=== PATIENT | female | born 1960 | race Two or more races ===

== ENCOUNTER 2016-09-30 12:49 | Inpatient (IN) | payer MEDICARE, OTHER ==
[2016-09-30] MEDS ORDERED: HYDROmorphone 1 MG/ML 1 ML SYRINGE IVP STA ×3 (13:31→17:22)
[2016-09-30] MEDS ORDERED: PANTOPRAZOLE 40 MG/10 ML VIAL IVP STA (13:31)
[2016-09-30] MEDS ORDERED: SODIUM CHLORIDE 0.9% 500 ML IV STA (13:31)
[2016-09-30] MEDS ORDERED: SODIUM CHLORIDE 0.9% 1,000 ML IV STA ×3 (13:31→15:46)
[2016-09-30] MEDS ORDERED: ONDANSETRON 4 MG/2 ML VIAL IVP STA ×2 (13:31→17:22)
--- NOTE | 2016-09-30 13:40 | ED ---
General Adult HPI - General Chief complaint: Nausea/Vomiting/Diarrhea Stated complaint: abdominal pa9in Time Seen by Provider: 09/30/16 13:01 Source: EMS, RN notes reviewed, old records reviewed Mode of arrival: EMS Limitations: no limitations - History of Present Illness Initial comments: This is a 56-year-old female here for evaluation of abdominal pain, nausea vomiting, persistent vomiting or gallop. Patient is poor strain secondary to current condition, patient's by my EMS, history is obtained from family. Patient is avoiding questions, not responding appropriately, states that she does not feel well - Related Data Home Medications Medication Instructions Recorded Confirmed ALPRAZolam [Xanax] 1 mg PO DAILY@1200,1700 05/22/14 10/06/16 Albuterol Inhaler [Ventolin Hfa 2 puff INHALATION DIRECTED PRN 09/30/1610/06 Inhaler] HYDROmorphone HCL [Dilaudid] 4 mg PO DAILY@1200,2100 PRN 09/30/16 10/09/16 Vilazodone Hydrochloride [Viibryd] 20 mg PO DAILY 09/30/16 10/06/16 ALPRAZolam [Xanax] 2 mg PO HS 10/06/16 10/09/16 Albuterol Nebulized [Ventolin 2.5 mg INHALATION DIRECTED PRN 10/06/16 Nebulized] Morphine Sulfate ER [Ms Contin] 30 mg PO BID 10/06/16 10/06/16 PARoxetine [Paxil] 20 mg PO DAILY@1200 10/06/16 10/09/16 Ranitidine HCl [Zantac] 150 mg PO AC-BID 10/06/16 10/06/16 Stool Softner 1 cap PO HS 10/06/16 10/09/16 Allergies Allergy/AdvReac Type Severity Reaction Status Date / Time ampicillin Allergy Unknown Verified 10/09/16 10:41 cephalexin monohydrate Allergy Unknown Verified 10/09/16 10:41 [From Keflex] ciprofloxacin Allergy Nausea & Verified 10/09/16 10:41 Vomiting ibuprofen [From Motrin] Allergy Nausea & Verified 10/09/16 10:41 Vomiting nadolol [From Corgard] Allergy Nausea & Verified 10/09/16 10:41 Vomiting aspirin AdvReac Unknown Swelling Verified 10/09/16 10:41 Review of Systems ROS Statement: Those systems with pertinent positive or pertinent negative responses have been documented in the HPI. ROS Other: All systems not noted in ROS Statement are negative. Past Medical History Past Medical History: Asthma, Cancer, Chest Pain / Angina, COPD, Fibromyalgia, GERD/Reflux, Pneumonia Additional Past Medical History / Comment(s): MURMUR,VULVULAR CA,HIATAL HERNIA, MIGRAINES,COLITIS, History of Any Multi-Drug Resistant Organisms: None Reported Past Surgical History: Appendectomy, Bladder Surgery, Cholecystectomy, Hernia Repair, Hysterectomy Additional Past Surgical History / Comment(s): vulvular cancer HAD 14 SX AT [facility]. Past Anesthesia/Blood Transfusion Reactions: No Reported Reaction Past Psychological History: Anxiety, Depression Smoking Status: Current every day smoker Past Alcohol Use History: None Reported Additional Past Alcohol Use History / Comment(s): STARTED AT AGE 5, SMOKES LESS THAN 1/2 PPD DOWN FROM 2.5 PACKS PER DAY. Past Drug Use History: None Reported - Past Family History Father Family Medical History: Congestive Heart Failure (CHF) Additional Family Medical History / Comment(s): DAD AT AGE 86 FROM CHF Mother Additional Family Medical History / Comment(s): MOM AT AGE 40 FROM CANCER THAT METASTASISED, General Exam Limitations: no limitations General appearance: alert, in no apparent distress, anxious, lethargic, in distress Head exam: Present: atraumatic, normocephalic, normal inspection Eye exam: Present: normal appearance, PERRL, EOMI. Absent: scleral icterus, conjunctival injection, periorbital swelling ENT exam: Present: normal exam, mucous membranes moist Neck exam: Present: normal inspection. Absent: tenderness, meningismus, lymphadenopathy Respiratory exam: Present: normal lung sounds bilaterally. Absent: respiratory distress, wheezes, rales, rhonchi, stridor Cardiovascular Exam: Present: regular rate, normal rhythm, tachycardia, normal heart sounds. Absent: systolic murmur, diastolic murmur, rubs, gallop, clicks GI/Abdominal exam: Present: soft, normal bowel sounds. Absent: distended, tenderness, guarding, rebound, rigid Extremities exam: Present: normal inspection, full ROM, normal capillary refill. Absent: tenderness, pedal edema, joint swelling, calf tenderness Back exam: Present: normal inspection Neurological exam: Present: alert, oriented X3, CN II-XII intact Psychiatric exam: Present: normal affect, normal mood Skin exam: Present: warm, dry, intact, normal color. Absent: rash Course Vital Signs 09/30/16 09/30/16 09/30/16 12:59 13:49 14:50 Temperature 97.0 F L Pulse Rate 72 55 L 58 L Respiratory 14 20 Rate Blood Pressure 102/82 162/80 178/78 O2 Sat by Pulse 95 Oximetry 09/30/16 09/30/16 09/30/16 15:50 17:26 17:36 Temperature Pulse Rate 60 66 Respiratory 16 Rate Blood Pressure 151/75 176/80 O2 Sat by Pulse 98 Oximetry 09/30/16 18:05 Temperature 97.9 F Pulse Rate 65 Respiratory 18 Rate Blood Pressure 172/76 O2 Sat by Pulse 98 Oximetry - Reevaluation(s) Reevaluation #1: 09/30/16 16:12 Patient's difficult IV start, difficult blood draw, multiple attempts by multiple different nurses as well as different medical departments Reevaluation #2: 09/30/16 16:12 Patient is still feeling pain and difficulty strain after initial dose of pain medication EKG Findings - EKG Comments: EKG Findings:: EKG shows sinus bradycardia rate 59, WI 158, QRS 68, QTc 461 Medical Decision Making - Medical Decision Making 56 female admitted to the ER for nausea vomiting and pain. She does have mild improvement but not full relief. Patient be admitted for further evaluation and management - Lab Data Result diagrams: 10/02/16 09:36 09/30/16 16:42 Lab Results 09/30/16 09/30/16 09/30/16 Range/Units 15:57 16:42 16:42 WBC 11.4 H (3.8-10.6) k/uL RBC 4.36 (3.80-5.40) m/uL Hgb 13.8 (11.4-16.0) gm/dL Hct 41.4 (34.0-46.0) % MCV 95.0 (80.0-100.0) fL MCH 31.6 (25.0-35.0) pg MCHC 33.3 (31.0-37.0) g/dL RDW 13.3 (11.5-15.5) % Plt Count 186 (150-450) k/uL Neutrophils % 88 % Lymphocytes % 8 % Monocytes % 3 % Eosinophils % 1 % Basophils % 0 % Neutrophils # 10.0 H (1.3-7.7) k/uL Lymphocytes # 0.9 L (1.0-4.8) k/uL Monocytes # 0.4 (0-1.0) k/uL Eosinophils # 0.1 (0-0.7) k/uL Basophils # 0.0 (0-0.2) k/uL Sodium 147 H (137-145) mmol/L Potassium 4.5 (3.5-5.1) mmol/L Chloride 115 H (98-107) mmol/L Carbon Dioxide 21 L (22-30) mmol/L Anion Gap 11 mmol/L BUN 14 (7-17) mg/dL Creatinine 0.86 (0.52-1.04) mg/dL Est GFR (MDRD) Af Amer >60 (>60 ml/min/1.73 sqM) Est GFR (MDRD) Non-Af >60 (>60 ml/min/1.73 sqM) Glucose 161 H (74-99) mg/dL Calcium 9.1 (8.4-10.2) mg/dL Phosphorus 1.7 L (2.5-4.5) mg/dL Magnesium 1.6 (1.6-2.3) mg/dL Total Bilirubin 0.7 (0.2-1.3) mg/dL AST 28 (14-36) U/L ALT 29 (9-52) U/L Alkaline Phosphatase 83 (38-126) U/L Total Protein 7.2 (6.3-8.2) g/dL Albumin 3.8 (3.5-5.0) g/dL Lipase 145 (23-300) U/L Urine Color Yellow Urine Appearance Cloudy H (Clear) Urine pH 8.5 H (5.0-8.0) Ur Specific [place] 1.016 (1.001-1.035) Urine Protein 2+ H (Negative) Urine Glucose (UA) Negative (Negative) Urine Ketones 2+ H (Negative) Urine Blood Moderate H (Negative) Urine Nitrate Negative (Negative) Urine Bilirubin Negative (Negative) Urine Urobilinogen <2.0 (<2.0) mg/dL Ur Leukocyte Esterase Small H (Negative) Urine RBC 160 H (0-5) /hpf Urine WBC 11 H (0-5) /hpf Ur Squamous Epith Cells 3 (0-4) /hpf Amorphous Sediment Rare H (None) /hpf Urine Bacteria Rare H (None) /hpf Urine Mucus Occasional H (None) /hpf Disposition Clinical Impression: Intractable nausea and vomiting, Chronic pain Disposition: ADMITTED IP TO THIS HOSP Condition: Fair
[2016-09-30] MEDS ORDERED: LORazepam 2 MG/ML SYRINGE IV STA (15:46)
[2016-09-30 16:23] LABS: Amorphous Sediment,Urine Rare /hpf; Appearance,Urine Cloudy (Clear); Bacteria,Urine Rare /hpf; Bilirubin,Urine Negative (Negative); Glucose,Urine (UA) Negative (Negative); Ketones,Urine 2+ (Negative); Leukocyte Esterase,Urine Small (Negative); Mucus,Urine Occasional /hpf; Nitrite,Urine Negative (Negative); PH, Urine 8.5 (5.0-8.0); Particle Count 4965; Protein,Urine 2+ (Negative); RBC,Urine 160 /hpf (0-5); Specific Gravity,Urine 1.016 (1.001-1.035); Squamous Epithelial Cell,Urine 3 /hpf (0-4); UA Billing (MACRO vs. MICRO) MICRO; Urobilinogen,Urine <2.0 mg/dL (<2.0); WBC,Urine 11 /hpf (0-5)
[2016-09-30 16:58] LABS: Basophils % (A) 0 %; CH 31.1; CHCM 32.9; Eosinophils # (A) 0.1 k/uL (0-0.7); Eosinophils % (A) 1 %; HCT 41.4 % (34.0-46.0); HDW 2.14; HGB 13.8 gm/dL (11.4-16.0); Luc # (Auto) 0.07; Luc % (Auto) 1; Lymphocytes # (A) 0.9 k/uL (1.0-4.8); Lymphocytes % (A) 8 %; MCH 31.6 pg (25.0-35.0); MCHC 33.3 g/dL (31.0-37.0); Mean Platelet Volume 9.4; Monocytes # (A) 0.4 k/uL (0-1.0); Monocytes % (A) 3 %; Neutrophils % (A) 88 %; RBC 4.36 m/uL (3.80-5.40); RDW 13.3 % (11.5-15.5); WBC 11.4 k/uL (3.8-10.6); WBC (Perox) 11.63
[2016-09-30 17:22] LABS: ALT 29 U/L (9-52); AST 28 U/L (14-36); Alkaline Phosphatase 83 U/L (38-126); Anion Gap 11 mmol/L; Blood Urea Nitrogen 14 mg/dL (7-17); Calcium 9.1 mg/dL (8.4-10.2); Carbon Dioxide 21 mmol/L (22-30); Chloride 115 mmol/L (98-107); Glucose 161 mg/dL (74-99); Magnesium 1.6 mg/dL (1.6-2.3); Non-African American GFR(MDRD) >60 (>60 ml/min/1.73 sqM); Phosphorous 1.7 mg/dL (2.5-4.5); Sodium 147 mmol/L (137-145); Total Bilirubin 0.7 mg/dL (0.2-1.3); Total Protein 7.2 g/dL (6.3-8.2)
[2016-09-30] MEDS ORDERED: SODIUM CHLORIDE 0.9% 1,000 ML IV ONE (17:22)
[2016-09-30 17:37] LABS: Potassium 4.5 mmol/L (3.5-5.1)
[2016-09-30 19:03] VITALS: BMI 22.6
[2016-09-30] MEDS: HYDROmorphone 1 MG/ML 1 ML SYRINGE IVP PRN (21:43)
[2016-09-30] MEDS: ONDANSETRON 4 MG/2 ML VIAL IVP PRN (21:45)
[2016-10-01] MEDS: HYDROmorphone 1 MG/ML 1 ML SYRINGE IVP PRN ×7 (00:54→22:21)
[2016-10-01] MEDS: ONDANSETRON 4 MG/2 ML VIAL IVP PRN (05:02)
[2016-10-01] MEDS: ENOXAPARIN 40 MG/0.4 ML SYRINGE SQ SCH (07:33)
[2016-10-01] MEDS: PANTOPRAZOLE 40 MG/10 ML VIAL IVP SCH (07:33)
[2016-10-01] MEDS ORDERED: ALBUTEROL NEBULIZED 2.5 MG/3 ML INHALATION PRN (11:34)
[2016-10-01] MEDS ORDERED: ONDANSETRON 4 MG/2 ML VIAL IVP PRN (11:43)
[2016-10-01] MEDS: SODIUM CHLORIDE 0.9% 1,000 ML IV SCH (12:52)
[2016-10-01] MEDS ORDERED: ALPRAZolam 0.5 MG TAB PO STA (13:25)
[2016-10-01] MEDS: NITROFURANTOIN MONOHYD/M-CRYST 100 MG CAP PO SCH ×2 (13:47→22:22)
[2016-10-01] MEDS: VILAZODONE HYDROCHLORIDE 20 MG PO SCH (16:12)
[2016-10-01] MEDS: ALPRAZolam 0.5 MG TAB PO SCH ×2 (18:27→22:21)
[2016-10-01] MEDS: PARoxetine 20 MG TAB PO SCH (22:22)
[2016-10-02] MEDS: HYDROmorphone 1 MG/ML 1 ML SYRINGE IVP PRN ×7 (02:25→21:55)
--- NOTE | 2016-10-02 08:29 | P.HPIM ---
History of Present Illness H&P Date: 10/02/16 Chief Complaint: Right lower quadrant abdominal pain This is a 56-year-old white female essentially admitted for right lower quadrant abdominal pain. She has an underlying history of supposedly follow her cancer. She hasn't on underlying element of taking Dilaudid with morphine sulfate. She states significant right lower quadrant pain. Some nausea is noted. Minimal toleration of diet as stated. She was supposed somewhat disoriented on admission. I question element of withdrawal from chronic opiates. However, she seems to have legitimate reason to take Dilaudid with morphine if she has underlying history of vulvar cancer. She states she usually goes to [facility] 6 months. Review of Systems Constitutional: Reports chronic pain, Reports weakness Eyes: denies blurred vision, denies pain Ears, nose, mouth and throat: Denies headache, Denies sore throat Cardiovascular: Denies chest pain, Denies shortness of breath Gastrointestinal: Reports as per HPI, Reports abdominal pain Genitourinary: Denies dysuria, Denies hematuria Past Medical History Past Medical History: Asthma, Cancer, Chest Pain / Angina, COPD, Fibromyalgia, GERD/Reflux, Pneumonia Additional Past Medical History / Comment(s): MURMUR,VULVULAR CA,HIATAL HERNIA, MIGRAINES,COLITIS, History of Any Multi-Drug Resistant Organisms: None Reported Past Surgical History: Appendectomy, Bladder Surgery, Cholecystectomy, Hernia Repair, Hysterectomy Additional Past Surgical History / Comment(s): vulvular cancer HAD 14 SX AT [facility]. Past Anesthesia/Blood Transfusion Reactions: No Reported Reaction Past Psychological History: Anxiety, Depression Smoking Status: Current every day smoker Past Alcohol Use History: None Reported Additional Past Alcohol Use History / Comment(s): STARTED AT AGE 5, SMOKES LESS THAN 1/2 PPD DOWN FROM 2.5 PACKS PER DAY. Past Drug Use History: None Reported - Past Family History Father Family Medical History: Congestive Heart Failure (CHF) Additional Family Medical History / Comment(s): DAD AT AGE 86 FROM CHF Mother Additional Family Medical History / Comment(s): MOM AT AGE 40 FROM CANCER THAT METASTASISED, Medications and Allergies Home Medications Medication Instructions Recorded Confirmed Type ALPRAZolam [Xanax] 2 mg PO TID 05/22/14 09/30/16 History Albuterol Inhaler [Ventolin Hfa 2 puff INHALATION RT-Q6H PRN 09/30/16 09/30/16 History Inhaler] HYDROmorphone HCL [Dilaudid] 4 mg PO Q6H PRN 09/30/16 09/30/16 History Vilazodone Hydrochloride [Viibryd] 20 mg PO DAILY 09/30/16 09/30/16 History PARoxetine [Paxil] 1 BID 10/01/16 History Allergies Allergy/AdvReac Type Severity Reaction Status Date / Time ampicillin Allergy Unknown Verified 09/30/16 13:16 cephalexin monohydrate Allergy Unknown Verified 09/30/16 13:16 [From Keflex] ciprofloxacin Allergy Nausea & Verified 09/30/16 13:16 Vomiting ibuprofen [From Motrin] Allergy Nausea & Verified 09/30/16 13:16 Vomiting nadolol [From Corgard] Allergy Nausea & Verified 09/30/16 13:16 Vomiting Physical Exam Vitals: Vital Signs Temp Pulse Resp BP Pulse Ox 10/02/16 07:00 98.1 F 51 L 16 131/63 95 10/01/16 22:30 16 10/01/16 20:10 98.6 F 50 L 16 94/55 92 L 10/01/16 16:00 59 L 16 10/01/16 15:00 97.9 F 59 L 16 100/53 95 Intake and Output 10/01/16 10/02/16 10/02/16 22:59 06:59 14:59 Intake Total 60 300 Balance 60 300 Intake: Intake, IV Titration 180 Amount Sodium Chloride 0.9% 1, 180 000 ml @ 50 mls/hr IV . Q20H KHADRA Rx#:[id number] Oral 60 120 Other: # Voids 1 2 - Constitutional General appearance: thin - EENT Eyes: EOMI - Neck Neck: no lymphadenopathy - Respiratory Respiratory: bilateral: CTA - Cardiovascular Rhythm: regular Heart sounds: normal: S1, S2 - Gastrointestinal General gastrointestinal: soft, tenderness - Integumentary Integumentary: no cellulitis - Neurologic Neurologic: CNII-XII intact Results CBC & Chem 7: 09/30/16 16:42 09/30/16 16:42 Thrombosis Risk Factor Assmnt - Choose All That Apply Each Factor Represents 1 point: Age 41-60 years Thrombosis Risk Factor Assessment Total Risk Factor Score: 1 Thrombosis Risk Factor Assessment Level: Low Risk Assessment and Plan (1) Chronic pain Status: Acute (2) Intractable nausea and vomiting Status: Acute Plan: We'll go ahead and order computed tomography scan of abdomen and pelvis without contrast. Continue Dilaudid for chronic pain control. Check CBC and CMP in a.m. Question need to consult general surgery if no better. Reconcile medications as necessary. Time with Patient: Greater than 30
[2016-10-02] MEDS: ENOXAPARIN 40 MG/0.4 ML SYRINGE SQ SCH (08:35)
[2016-10-02] MEDS: ALPRAZolam 0.5 MG TAB PO SCH ×3 (08:35→21:00)
[2016-10-02] MEDS: PANTOPRAZOLE 40 MG/10 ML VIAL IVP SCH (08:36)
[2016-10-02] MEDS: NITROFURANTOIN MONOHYD/M-CRYST 100 MG CAP PO SCH ×2 (08:36→21:01)
[2016-10-02] MEDS: PARoxetine 20 MG TAB PO SCH ×2 (08:36→21:01)
[2016-10-02] MEDS: VILAZODONE HYDROCHLORIDE 20 MG PO SCH (08:36)
--- NOTE | 2016-10-02 09:20 | CT ---
EXAMINATION TYPE: CT abdomen pelvis wo con DATE OF EXAM: 10/02/2016 9:04 AM HISTORY: RLQ abdominal pain CT DLP: 688 mGycm. Automated Exposure Control for Dose Reduction was Utilized. TECHNIQUE: CT scan of the abdomen and pelvis is performed without oral or IV contrast. COMPARISON: CT abdomen pelvis December 14, 2015 FINDINGS: Within the limitations of a non-contrast study, the following observations are made. LUNG BASES: Some dependent atelectatic change is present. There is additional linear atelectasis and/ or scarring in the left lung base. LIVER/GB: There is stable 2 cm low dense lesion in the left hepatic lobe abutting the interhemispheri c fissure on axial image 26 corresponds to heterogeneous enhancing lesion with increasing central james ling or hemangioma on prior postcontrast images. Second smaller hemangioma posterior right hepatic lo be is likely present near axial image 27 stable in size. Cholecystectomy clips are noted. PANCREAS: No significant abnormality is seen. SPLEEN: Thin curvilinear calcification along lateral margin of spleen is redemonstrated presumed alisa gn, could be posttraumatic in etiology. ADRENALS: No significant abnormality is seen. KIDNEYS: No left-sided renal calculi or hydronephrosis is evident. Previously visualized large 13 mm calculus lower pole level right kidney has passed into the collecting system or pelvis. There is some ill-defined fluid surrounding right renal pelvis. There is second smaller nonobstructing 3 mm calcul us in lower pole calyx on axial image 29. There is mild to moderate proximal hydroureter which gradua lly transitions into nondilated ureter. No obstructing calculus is seen. No intraluminal calculus in the bladder is present. BOWEL: Evaluation of bowel is suboptimal due to lack of enteric contrast. There is no suspicious smal l or large bowel dilatation. Sigmoid colonic diverticula are present. There is some additional scatte red colonic diverticula. No acute diverticulitis is seen. Appendix is not well seen with certainty bu t there is no convincing evidence of inflammatory change at base of cecum to suggest acute appendicit is. Appendix is not well seen on prior exam and may be surgically absent. GENITAL ORGANS: Uterus is surgically absent or markedly atrophic in appearance. LYMPH NODES: No greater than 1cm abdominal or pelvic lymph nodes are appreciated. OSSEOUS STRUCTURES: No significant abnormality is seen. OTHER: There is mild to moderate calcified atherotic change of aorta and branch vessels. IMPRESSION: 1. Interval passage of large calculus right kidney into the renal pelvis. There is new moderate surro unding ill-defined fluid and fat stranding with new mild to moderate proximal hydroureter. This is no nspecific finding, inflammatory change or infectious process at this level these to be considered. Ad vise urology consultation if has not been performed.
[2016-10-02 10:08] LABS: Basophils % (A) 0 %; CHCM 32.2; Eosinophils # (A) 0.1 k/uL (0-0.7); Eosinophils % (A) 1 %; HCT 38.1 % (34.0-46.0); HDW 2.09; HGB 12.4 gm/dL (11.4-16.0); Luc # (Auto) 0.14; Luc % (Auto) 2; Lymphocytes # (A) 2.7 k/uL (1.0-4.8); Lymphocytes % (A) 47 %; MCH 31.5 pg (25.0-35.0); MCHC 32.5 g/dL (31.0-37.0); MCV 96.8 fL (80.0-100.0); Mean Platelet Volume 8.5; Monocytes # (A) 0.3 k/uL (0-1.0); Monocytes % (A) 6 %; Neutrophils # (A) 2.5 k/uL (1.3-7.7); Neutrophils % (A) 44 %; RBC 3.94 m/uL (3.80-5.40); RDW 13.4 % (11.5-15.5); WBC 5.7 k/uL (3.8-10.6); WBC (Perox) 6.06
[2016-10-02] MEDS: SODIUM CHLORIDE 0.9% 1,000 ML IV SCH (10:32)
[2016-10-02] MEDS: HYDROmorphone 2 MG TAB PO PRN (16:46)
--- NOTE | 2016-10-02 18:08 | HP ---
DATE OF ADMISSION: This is a pleasant 56-year-old white female with multiple allergies who was admitted to the hospital with acute abdominal pain, nausea, vomiting, persistent vomiting for approximately 4 to 5 hours in the emergency department. She denies any chest pain. She denies any active bleeding including gastrointestinal or rectal or urinary. CURRENT MEDICATIONS: Include Xanax, Ventolin, Dilaudid p.o. and Vybrid. ALLERGIES: Ampicillin, Keflex, Cipro, ibuprofen and Corgard. REVIEW OF SYSTEMS: The patient is a poor historian and she is currently not talking very much secondary to pain. PAST MEDICAL HISTORY: Significant for vulvar cancer, chest pain, angina, COPD, fibromyalgia, chronic pain syndrome, chronic pain medications, GERD, migraines, colitis. PAST SURGICAL HISTORY: Bladder, cholecystectomy, hernia repair, hysterectomy, appendectomy, vulvar cancer at [facility]. SOCIAL: Positive tobacco every day. FAMILY HISTORY: Dad had congestive heart failure, at 86. Mom from cancer at age 40. PHYSICAL EXAMINATION: GENERAL: The patient is alert. She is thrashing. She answered questions. She is not coherent at times. HEENT: Head is normocephalic and atraumatic. Sclerae is anicteric. NECK: Supple. No JVD. HEART: Regular rate and rhythm. LUNGS: Clear to auscultation. ABDOMEN: Soft, but diffuse tenderness with negative rebound, rigidity, guarding. EXTREMITIES: No cyanosis, clubbing or jaundice. SKIN: Skin is warm and dry to palpation. NEUROLOGIC: Cranial nerves II through XII are grossly intact. She is currently afebrile with a temperature 97.0. IMPRESSION: 1. Intractable nausea and vomiting. 2. Urinary tract infection. 3. Chronic pain and chronic pain management. 4. Fibromyalgia. PLAN: Admit patient, full hydration, continue to monitor labs, advance diet as she is currently n.p.o., add antibiotics for uncomplicated urinary tract infection.
[2016-10-03] MEDS: HYDROmorphone 1 MG/ML 1 ML SYRINGE IVP PRN ×4 (00:58→22:32)
[2016-10-03] MEDS: HYDROmorphone 2 MG TAB PO PRN ×2 (03:10→12:29)
[2016-10-03] MEDS: SODIUM CHLORIDE 0.9% 1,000 ML IV SCH (06:28)
--- NOTE | 2016-10-03 08:27 | P.PN ---
Subjective Principal diagnosis: Right lower quadrant abdominal pain. This is a continue progress on a 56-year-old white female essentially admitted for abdominal pain. The patient had computed tomography scan done yesterday which showed interval large passage of renal calculus. However, there is fluid collection in the ureter area on that side. It is recommended from computed tomography scan that we obtain urology consultation. However, clinically she is significantly improved. She seems to be tolerating diet. We will go ahead and advance as necessary. She is currently on Macrobid. CBC is nominal. Objective - Vital Signs Vital signs: Vital Signs Temp 98.4 F 10/03/16 07:00 Pulse 50 L 10/03/16 07:00 Resp 16 10/03/16 07:00 BP 130/64 10/03/16 07:00 Pulse Ox 96 10/03/16 07:00 Intake & Output 10/02/16 10/03/16 10/03/16 18:59 06:59 18:59 Intake Total 940 Balance 940 Intake: Intake, IV Titration 400 Amount Sodium Chloride 0.9% 1, 400 000 ml @ 50 mls/hr IV . Q20H KHADRA Rx#:[id number] Oral 540 Other: # Voids 3 1 - Constitutional General appearance: Present: thin - EENT Eyes: Absent: abnormal pupil - Respiratory Respiratory: bilateral: CTA - Cardiovascular Rhythm: regular Heart sounds: normal: S1, S2 - Gastrointestinal General gastrointestinal: Present: soft. Absent: tenderness - Integumentary Integumentary: Absent: cellulitis - Psychiatric Psychiatric: Present: A&O x's 3 - Labs CBC & Chem 7: 10/02/16 09:36 09/30/16 16:42 Assessment and Plan (1) Chronic pain Status: Acute (2) Intractable nausea and vomiting Status: Acute Plan: Right lower quadrant abdominal pain with urologic finding on computed tomography scan. We'll go ahead and ask Dr. Raman to see the patient. Otherwise, significant improvement clinically and her appearance today compared to admission. She is more alert and not complaining of any significant nausea as she was on admission. Hopeful discharge in next 24-48 hours. Restart home morphine dosing.
[2016-10-03] MEDS: ENOXAPARIN 40 MG/0.4 ML SYRINGE SQ SCH (09:27)
[2016-10-03] MEDS: MORPHINE SULFATE ER 30 MG TABLET PO SCH ×2 (09:27→20:39)
[2016-10-03] MEDS: PANTOPRAZOLE 40 MG/10 ML VIAL IVP SCH (09:27)
[2016-10-03] MEDS: VILAZODONE HYDROCHLORIDE 20 MG PO SCH (09:27)
[2016-10-03] MEDS: PARoxetine 20 MG TAB PO SCH ×2 (09:28→20:40)
[2016-10-03] MEDS: NITROFURANTOIN MONOHYD/M-CRYST 100 MG CAP PO SCH ×2 (09:28→20:40)
[2016-10-03] MEDS: ALPRAZolam 0.5 MG TAB PO SCH ×3 (10:22→20:39)
--- NOTE | 2016-10-03 16:34 | P.GSCN ---
History of Present Illness Consult date: 10/03/16 History of present illness: 56 yo female admitted with acute pain, nausea and vomiting.SHe has chronic pain. SHe has a history of stones. SHe has been seen by Dr Perry in the past. SHe had eswl in 2009. SHe had a ct scan that shows a 13 mm upj stone on the right. It was previously noted in the right lower pole. HEr urine is not infected. There is mild hydro secondary to the stone. She has had pain for the last couple of months. Review of Systems - Constitutional Reports chronic pain - Genitourinary Genitourinary Comment(s): the patient has vulvar cancer and has had treatment for that. Genitourinary: Reports as per HPI Past Medical History Past Medical History: Asthma, Cancer, Chest Pain / Angina, COPD, Fibromyalgia, GERD/Reflux, Pneumonia Additional Past Medical History / Comment(s): MURMUR,VULVULAR CA,HIATAL HERNIA, MIGRAINES,COLITIS, History of Any Multi-Drug Resistant Organisms: None Reported Past Surgical History: Appendectomy, Bladder Surgery, Cholecystectomy, Hernia Repair, Hysterectomy Additional Past Surgical History / Comment(s): vulvular cancer HAD 14 SX AT [facility]. Past Anesthesia/Blood Transfusion Reactions: No Reported Reaction Past Psychological History: Anxiety, Depression Smoking Status: Current every day smoker Past Alcohol Use History: None Reported Additional Past Alcohol Use History / Comment(s): STARTED AT AGE 5, SMOKES LESS THAN 1/2 PPD DOWN FROM 2.5 PACKS PER DAY. Past Drug Use History: None Reported - Past Family History Father Family Medical History: Congestive Heart Failure (CHF) Additional Family Medical History / Comment(s): DAD AT AGE 86 FROM CHF Mother Additional Family Medical History / Comment(s): MOM AT AGE 40 FROM CANCER THAT METASTASISED, Medications and Allergies Home Medications Medication Instructions Recorded Confirmed Type ALPRAZolam [Xanax] 2 mg PO TID 05/22/14 09/30/16 History Albuterol Inhaler [Ventolin Hfa 2 puff INHALATION RT-Q6H PRN 09/30/16 09/30/16 History Inhaler] HYDROmorphone HCL [Dilaudid] 4 mg PO Q6H PRN 09/30/16 09/30/16 History Vilazodone Hydrochloride [Viibryd] 20 mg PO DAILY 09/30/16 09/30/16 History PARoxetine [Paxil] 1 BID 10/01/16 History Allergies Allergy/AdvReac Type Severity Reaction Status Date / Time ampicillin Allergy Unknown Verified 09/30/16 13:16 cephalexin monohydrate Allergy Unknown Verified 09/30/16 13:16 [From Keflex] ciprofloxacin Allergy Nausea & Verified 09/30/16 13:16 Vomiting ibuprofen [From Motrin] Allergy Nausea & Verified 09/30/16 13:16 Vomiting nadolol [From Corgard] Allergy Nausea & Verified 09/30/16 13:16 Vomiting Surgical - Exam Vital Signs Temp Pulse Resp BP Pulse Ox 97.0 F L 72 14 102/82 95 09/30/16 12:59 09/30/16 12:59 09/30/16 12:59 09/30/16 12:59 09/30/16 12:59 - General well developed, moderate pain - ENT no hearing loss - Neck trachea midline - Respiratory normal expansion, normal respiratory effort - Cardiovascular Rhythm: regular - Abdomen Abdomen: soft, non tender - Neurologic normal coordination, normal sensation - Musculoskeletal normal posture - Psychiatric oriented to time, oriented to person, oriented to place Results - Labs 10/02/16 09:36 09/30/16 16:42 Assessment and Plan Plan: Impression / Plan : Right upj stone, 13mm The chance of spontaneous passage is small. She would probably best treated with ESWL right This can be set up for 10/09/2016I discussed other surgical options with the patient and her son and we have decided to proceed with shockwave lithotripsy. This will be set up. The patient can be discharged home on oral pain medication.
[2016-10-03 22:34] VITALS: PULSE 51; RESP 18
[2016-10-04] MEDS: HYDROmorphone 1 MG/ML 1 ML SYRINGE IVP PRN (01:48)
[2016-10-04] MEDS: SODIUM CHLORIDE 0.9% 1,000 ML IV SCH (05:13)
[2016-10-04] MEDS: HYDROmorphone 2 MG TAB PO PRN (05:14)
[2016-10-04] MEDS ORDERED: PANTOPRAZOLE 40 MG TABLET PO SCH (07:30)
[2016-10-04 07:38] VITALS: BP 136/61; TEMP 98.6
--- NOTE | 2016-10-04 07:56 | P.DS ---
Providers Date of admission: 09/30/16 17:22 Attending physician: Matti Montejo Consults: 10/03/16 08:03 Consult Physician Routine Consulting Provider: Bebeto Raman Consult Reason/Comments: ureter inflammation Do you want consulting provider notified?: Yes Primary care physician: Matti Montejo - Discharge Diagnosis(es) (1) Chronic pain Current Visit: Yes Status: Acute (2) Intractable nausea and vomiting Current Visit: Yes Status: Acute Hospital Course: The patient is a 56-year-old white female essentially for dehydration. The patient had significant abdominal pain and disorientation. After rehydration she complained of right quadrant abdominal pain. The patient ended up having computed tomography scan which showed significant stone. Neurology is consulted and she'll have shockwave lithotripsy done this Sunday the patient is not tolerating diet without difficulty and to follow-up with me in approximately one week. Patient Condition at Discharge: Fair Plan - Discharge Summary Discharge Medication List ALPRAZolam [Xanax] 2 mg PO TID 05/22/14 [History] Albuterol Inhaler [Ventolin Hfa Inhaler] 2 puff INHALATION RT-Q6H PRN 09/30/16 [ History] HYDROmorphone HCL [Dilaudid] 4 mg PO Q6H PRN 09/30/16 [History] Vilazodone Hydrochloride [Viibryd] 20 mg PO DAILY 09/30/16 [History] PARoxetine [Paxil] 1 BID 10/01/16 [History] Morphine Sulfate ER [Ms Contin] 30 mg PO Q12HR tablet 10/04/16 [Rx] Nitrofurantoin Monohyd/M-Cryst [Macrobid] 100 mg PO BID cap 10/04/16 [Rx] PARoxetine [Paxil] 20 mg PO BID tab 10/04/16 [Rx] Follow up Appointment(s)/Referral(s): Matti Montejo MD [Primary Care Provider] - 1 Week Discharge Disposition: HOME SELF-CARE
[2016-10-04] MEDS: ENOXAPARIN 40 MG/0.4 ML SYRINGE SQ SCH (08:07)
[2016-10-04] MEDS: ALPRAZolam 0.5 MG TAB PO SCH (08:07)
[2016-10-04] MEDS: MORPHINE SULFATE ER 30 MG TABLET PO SCH (08:08)
[2016-10-04] MEDS: PARoxetine 20 MG TAB PO SCH (08:09)
[2016-10-04] MEDS: VILAZODONE HYDROCHLORIDE 20 MG PO SCH (08:09)
[2016-10-04] MEDS: NITROFURANTOIN MONOHYD/M-CRYST 100 MG CAP PO SCH (08:09)
--- NOTE | 2016-10-04 11:24 | P.PN ---
Subjective The patient was seen in consultation yesterday for a 13 mm right renal pelvic stone. Her pain is under control. She'll be set up for excision corporeal shockwave lithotripsy, October 09Sunday here at [facility] - Vital Signs Vital signs: Vital Signs Temp 98.6 F 10/04/16 07:00 Pulse 51 L 10/04/16 07:00 Resp 18 10/04/16 08:00 BP 136/61 10/04/16 07:00 Pulse Ox 93 L 10/04/16 07:00 Intake & Output 10/03/16 10/04/16 10/04/16 18:59 06:59 18:59 Intake Total 350 600 Balance 350 600 Intake: Intake, IV Titration 350 400 Amount Sodium Chloride 0.9% 1, 350 400 000 ml @ 50 mls/hr IV . Q20H [facility] Rx#:[id number] Oral 200 Other: Voiding Method Toilet # Voids 2 1 - Labs CBC & Chem 7: 10/02/16 09:36 09/30/16 16:42
== END 2016-10-04 12:16 | disposition home or self-care (01) | DRG 694 ==
LOC: EC 12:49 → 5MS5E 17:22
PROVIDERS: ADMIT Family Medicine; ATTEND Family Medicine
DX: N20.0 Calculus of kidney (principal); N39.0 Urinary tract infection, site not specified; E86.0 Dehydration; F32.9 Major depressive disorder, single episode, unspecified; F17.200 Nicotine dependence, unspecified, uncomplicated; F41.9 Anxiety disorder, unspecified; G89.4 Chronic pain syndrome; J44.9 Chronic obstructive pulmonary disease, unspecified; J45.909 Unspecified asthma, uncomplicated; K21.9 Gastro-esophageal reflux disease without esophagitis; M79.7 Fibromyalgia; G43.909 Migraine, unspecified, not intractable, without status migrainosus; K44.9 Diaphragmatic hernia without obstruction or gangrene; R01.1 Cardiac murmur, unspecified; R19.7 Diarrhea, unspecified; Z85.44 Personal history of malignant neoplasm of other female genital organs; Z79.899 Other long term (current) drug therapy; Z88.1 Allergy status to other antibiotic agents; Z88.0 Allergy status to penicillin; Z82.49 Family history of ischemic heart disease and other diseases of the circulatory system
CPT/HCPCS: 36415; 74176; 80053; 81001; 83690; 83735; 84100; 85025; 87086; 93005; 94760; 96361; 96374; 96375; 96376; 99285

== ENCOUNTER 2016-10-09 10:19 | Day surgery (SDC) | payer MEDICARE, OTHER ==
[2016-10-06 12:05] VITALS: BMI 22.6
[~2016-10-09 10:19] MED LIST: HYDROmorphone 1 MG/ML 1 ML SYRINGE IVP PRN; LACTATED RINGERS 1,000 ML IV SCH; LIDOCAINE 1% 20 ML VIAL (10MG/ML) FOR IV START INTRADERMA PRN
--- NOTE | 2016-10-09 10:20 | XR ---
EXAMINATION TYPE: XR KUB DATE OF EXAM: 10/09/2016 10:13 AM COMPARISON: 12/10/2009 INDICATION: Renal stones TECHNIQUE: Single view abdomen supine view FINDINGS: There is a normal bowel gas pattern. Psoas margins are normal. No organomegaly is present. There is a 1.2 cm calcification within the right renal pelvis region. Cholecystectomy clips are adjac ent. Calcifications better visualized than the comparison. IMPRESSION: 1. 1.2 cm right renal pelvis stone
[2016-10-09 10:42] VITALS: TEMP 98.1
[2016-10-09] MEDS ORDERED: LIDOCAINE 1% 20 ML VIAL (10MG/ML) FOR IV START INTRADERMA ONE (11:00)
[2016-10-09] MEDS ORDERED: fentaNYL (PF) 50 MCG/ML 2 ML AMP ONE (11:05)
[2016-10-09] MEDS ORDERED: FUROSEMIDE 10 MG/ML 2 ML VIAL ONE (11:05)
[2016-10-09] MEDS ORDERED: MIDAZOLAM 2 MG/2 ML VIAL ONE (11:05)
[2016-10-09] MEDS ORDERED: PROPOFOL 10 MG/ML 20 ML VIAL IV ONE (11:05)
[2016-10-09] MEDS ORDERED: LIDOCAINE 1% INJ 10MG/ML (20 ML MDV) ONE (11:05)
--- NOTE | 2016-10-09 11:45 | P.OP ---
Date of Procedure: 10/09/16 Preoperative Diagnosis: Right Renal Calculus Postoperative Diagnosis: Same Procedure(s) Performed: Right extracorporal shockwave lithotripsy (ESWL) Anesthesia: MAC Surgeon: Nigel Perry Estimated Blood Loss (ml): 0 IV fluids (ml): 400 Pathology: none sent Condition: stable Disposition: PACU Indications for Procedure: The patient is a 56 year old woman with a history of urolithiasis. She has been found to have a 13 mm right UPJ calculus and comes for ESWL. Operative Findings: The calculus fragments well. Description of Procedure: The patient was taken to the operating room and placed on the Dornier Compact Delta II lithotripter in the supine position. The calculus was seen on biplanar fluoroscopy. Lasix 10 mg was given intravenously. Once the patient was properly positioned and sedated, lithotripsy was performed. The energy level was gradually increased per protocol, to an energy level of 4. After 200 shocks were administered, a 2 minute pause was instituted per protocol. A total of 2500 shocks were given at a rate of 80 shocks per minute. Fluoroscopy was utilized at a minimum to ensure proper positioning and determine the treatment status. The calculus changed in appearance, consistent with fragmentation. The patient tolerated the procedure well was taken to the recovery room in stable condition. Instructions were given to strain the urine , and the patient will follow-up within one week.
[2016-10-09] MEDS ORDERED: MORPHINE SULFATE 4 MG/ML SYRINGE IVP ONE (12:31)
[2016-10-09 13:33] VITALS: RESP 16
[2016-10-09 14:12] VITALS: BP 113/66; PULSE 50
== END 2016-10-09 14:38 | disposition home or self-care (01) ==
LOC: ORWHC2ENDO 10:19
PROVIDERS: ATTEND Urology
DX: N20.0 Calculus of kidney (principal); G89.29 Other chronic pain; J45.909 Unspecified asthma, uncomplicated; J44.9 Chronic obstructive pulmonary disease, unspecified; M79.7 Fibromyalgia; K21.9 Gastro-esophageal reflux disease without esophagitis; F41.9 Anxiety disorder, unspecified; F32.9 Major depressive disorder, single episode, unspecified; F17.200 Nicotine dependence, unspecified, uncomplicated; Z79.891 Long term (current) use of opiate analgesic; Z79.899 Other long term (current) drug therapy; Z88.1 Allergy status to other antibiotic agents; Z88.8 Allergy status to other drugs, medicaments and biological substances
CPT/HCPCS: 74000; 50590; J2250; J2270; J1940; J2001; J3010; J2704; 99153

== ENCOUNTER → 2016-10-25 | Outpatient (CLI) | payer MEDICARE, OTHER ==
--- NOTE | 2016-10-25 14:29 | XR ---
EXAMINATION TYPE: XR KUB DATE OF EXAM ORDERED: 10/25/2016 2:12 PM HISTORY: Post lithotripsy. COMPARISON: Previous study dated 10/09/2016. FINDINGS: There has been a previous cholecystectomy. A 1.2 cm calculus overlying the right renal pelvis is no longer visualized. There is very questionabl e 3 mm calcification overlying the lower pole of the right kidney. There are stable phleboliths and o ther vascular calcifications within the pelvis. IMPRESSION: STATUS POST LITHOTRIPSY. THERE MAY BE A SMALL, RESIDUAL 3.3 MILLIMETER CALCIFICATION IN THE LOWER PEARL E OF THE RIGHT KIDNEY.
== END | disposition home or self-care (01) ==
LOC: RADXRMAIN 13:43
PROVIDERS: ATTEND Urology
DX: N28.89 Other specified disorders of kidney and ureter (principal)
CPT/HCPCS: 74000

== ENCOUNTER → 2017-05-31 | Outpatient (CLI) | payer MEDICARE, OTHER ==
--- NOTE | 2017-05-31 15:11 | XR ---
EXAMINATION TYPE: XR chest 2V DATE OF EXAM: 05/31/2017 COMPARISON: NONE HISTORY: Shortness of breath TECHNIQUE: Frontal and lateral views of the chest are obtained. FINDINGS: Scattered senescent parenchymal changes noted. Hyperinflation compatible with COPD. No evidence for infiltrate. No evidence for atelectasis. Heart size is stable. Mediastinal structures are stable and grossly unremarkable. No evidence for hilar prominence. Degenerative changes dorsal spine. IMPRESSION: 1. No evidence for acute pulmonary disease.
== END | disposition home or self-care (01) ==
LOC: RADXRMAIN 12:59
PROVIDERS: ATTEND Family Medicine
DX: J18.9 Pneumonia, unspecified organism (principal)
CPT/HCPCS: 71020

== ENCOUNTER 2017-06-16 14:02 | Emergency (ER) | payer MEDICARE, OTHER ==
[2017-06-16 14:16] VITALS: BP 115/67; PULSE 84; RESP 18; TEMP 98.2
--- NOTE | 2017-06-16 14:27 | ED ---
General Adult HPI - General Chief complaint: Extremity Injury, Lower Stated complaint: Ankle Pain Time Seen by Provider: 06/16/17 14:19 Source: patient, RN notes reviewed Mode of arrival: wheelchair Limitations: no limitations - History of Present Illness Initial comments: Patient is a 57-year-old female who presents emergency room today with chief complaint of injury to the left ankle that just occurred prior to arrival. She states she went to stand up and she felt a pop in the left foot. She states this happened once before she had a broken bone. Patient states increased pains worse with movements and ambulation. Patient denies any other associated symptoms. Patient denies any recent fever, chills, shortness of breath, chest pain, back pain, abdominal pain, nausea or vomiting, numbness or tingling, dysuria or hematuria, constipation or diarrhea, headaches or visual changes, or any other complaints. - Related Data Home Medications Medication Instructions Recorded Confirmed ALPRAZolam [Xanax] 1 mg PO DAILY@1200,1700 05/22/14 10/06/16 Albuterol Inhaler [Ventolin Hfa 2 puff INHALATION DIRECTED PRN 09/30/1610/06 Inhaler] HYDROmorphone HCL [Dilaudid] 4 mg PO DAILY@1200,2100 PRN 09/30/16 10/09/16 Vilazodone HCl [Viibryd] 20 mg PO DAILY 09/30/16 10/06/16 ALPRAZolam [Xanax] 2 mg PO HS 10/06/16 10/09/16 Albuterol Nebulized [Ventolin 2.5 mg INHALATION DIRECTED PRN 10/06/16 Nebulized] Morphine Sulfate ER [Ms Contin] 30 mg PO BID 10/06/16 10/06/16 PARoxetine [Paxil] 20 mg PO DAILY@1200 10/06/16 10/09/16 Ranitidine HCl [Zantac] 150 mg PO AC-BID 10/06/16 10/06/16 Stool Softner 1 cap PO HS 10/06/16 10/09/16 Allergies Allergy/AdvReac Type Severity Reaction Status Date / Time ampicillin Allergy Unknown Verified 06/16/17 14:16 cephalexin monohydrate Allergy Unknown Verified 06/16/17 14:16 [From Keflex] ciprofloxacin Allergy Nausea & Verified 06/16/17 14:16 Vomiting ibuprofen [From Motrin] Allergy Nausea & Verified 06/16/17 14:16 Vomiting nadolol [From Corgard] Allergy Nausea & Verified 06/16/17 14:16 Vomiting aspirin AdvReac Unknown Swelling Verified 06/16/17 14:16 Review of Systems ROS Statement: Those systems with pertinent positive or pertinent negative responses have been documented in the HPI. ROS Other: All systems not noted in ROS Statement are negative. Past Medical History Past Medical History: Asthma, Cancer, Chest Pain / Angina, COPD, Fibromyalgia, GERD/Reflux, Osteoarthritis (OA), Pneumonia Additional Past Medical History / Comment(s): MURMUR,VULVULAR CA,HIATAL HERNIA, MIGRAINES,DIVERTICULITIS, MIGRAINES, CHRONIC CONSTIPATION, BACK PAIN, HX OF FX LEFT ANKLE APPROX 4 YRS AGO, FX RIGHT FOOT 2016. KIDNEY STONES. History of Any Multi-Drug Resistant Organisms: None Reported Past Surgical History: Appendectomy, Bladder Surgery, Cholecystectomy, Hernia Repair, Hysterectomy Additional Past Surgical History / Comment(s): vulvular cancer (14 SX AT [facility]). Past Anesthesia/Blood Transfusion Reactions: Motion Sickness, Postoperative Nausea & Vomiting (PONV) Past Psychological History: Anxiety, Depression Smoking Status: Current every day smoker Past Alcohol Use History: None Reported Past Drug Use History: Marijuana - Past Family History Father Family Medical History: Congestive Heart Failure (CHF) Additional Family Medical History / Comment(s): DAD AT AGE 86 FROM CHF Mother Family Medical History: Cancer Additional Family Medical History / Comment(s): MOM AT AGE 40 FROM CANCER THAT METASTASISED, General Exam - General Exam Comments Initial Comments: General: The patient is awake and alert, in no distress, and does not appear acutely ill. Neck: The neck is supple, there is no tenderness or JVD. Cardiovascular: There is a regular rate and rhythm. No murmur, rub or gallop is appreciated. Respiratory: Lungs are clear to auscultation, respirations are non-labored, breath sounds are equal. No wheezes, stridor, rales, or rhonchi. Musculoskeletal: Patient does have mild swelling over the lateral aspect of left foot. Locally tender over the fourth and fifth metatarsals. No tenderness to the medial or lateral malleolus. No tenderness to the fibular head. No tenderness down into the digits. Sensations intact with pulses bilateral 2+. Neurological: A&O x 3. CN II-XII intact, There are no obvious motor or sensory deficits. Coordination appears grossly intact. Speech is normal. Skin: Skin is warm and dry and no rashes or lesions are noted. Psychiatric: Normal mood and affect. Limitations: no limitations Course Vital Signs 06/16/17 14:13 Temperature 98.2 F Pulse Rate 84 Respiratory 18 Rate Blood Pressure 115/67 O2 Sat by Pulse 97 Oximetry Medical Decision Making - Medical Decision Making X-ray negative for any acute fracture dislocation. Results were discussed with patient. Patient advised continued ice elevate the affected area and use pain medicine that she has at home for pain. Advised follow-up the orthopedic doctor symptoms persist over the next 710 days. Patient will be given prescription for crutches to help with ambulation she is advised to use with weightbearing as tolerated. Disposition Clinical Impression: Foot sprain Disposition: HOME SELF-CARE Condition: Good Instructions: Foot Sprain (ED) Additional Instructions: Please continue to ice elevate the affected area and use crutches with weightbearing as tolerated. Please follow-up with the family doctor or orthopedics in 710 days if symptoms persist. Please return for any other concerns. Referrals: Matti Montejo MD [Primary Care Provider] - 1-2 days Amaury Murray MD [STAFF PHYSICIAN] - 1-2 days Time of Disposition: 14:55
--- NOTE | 2017-06-16 14:45 | XR ---
EXAMINATION TYPE: XR ankle complete LT DATE OF EXAM: 06/16/2017 COMPARISON: NONE HISTORY: Pain. Injury. TECHNIQUE: 4 views FINDINGS: Ankle mortise is anatomic. I see no fracture nor dislocation. Joint spaces are fairly crow l. IMPRESSION: Negative left ankle exam.
--- NOTE | 2017-06-16 14:46 | XR ---
EXAMINATION TYPE: XR foot complete LT DATE OF EXAM: 06/16/2017 COMPARISON: NONE HISTORY: Pain TECHNIQUE: 3 views FINDINGS: I see no fracture nor dislocation. Metatarsals are intact. Joint spaces are fairly normal. IMPRESSION: Negative left foot exam
== END 2017-06-16 15:02 | disposition home or self-care (01) ==
LOC: EC 14:02
DX: S93.602A Unspecified sprain of left foot, initial encounter (principal); J44.9 Chronic obstructive pulmonary disease, unspecified; M79.7 Fibromyalgia; K21.9 Gastro-esophageal reflux disease without esophagitis; M19.90 Unspecified osteoarthritis, unspecified site; F32.9 Major depressive disorder, single episode, unspecified; F41.9 Anxiety disorder, unspecified; F17.200 Nicotine dependence, unspecified, uncomplicated; Z85.44 Personal history of malignant neoplasm of other female genital organs; W22.8XXA Striking against or struck by other objects, initial encounter; Z79.891 Long term (current) use of opiate analgesic; Z79.899 Other long term (current) drug therapy; Z88.1 Allergy status to other antibiotic agents; Z88.6 Allergy status to analgesic agent; Z88.8 Allergy status to other drugs, medicaments and biological substances; Z90.49 Acquired absence of other specified parts of digestive tract; Z90.710 Acquired absence of both cervix and uterus
CPT/HCPCS: 99283

== ENCOUNTER → 2018-10-08 | Outpatient (CLI) | payer MEDICARE, OTHER ==
--- NOTE | 2018-10-09 07:50 | CT ---
EXAMINATION TYPE: CT abdomen pelvis wo con DATE OF EXAM: 10/08/2018 COMPARISON: 10/02/2016 INDICATION: Left side flank pain. DLP: 231.1 mGycm, Automated exposure control for dose reduction was used. CONTRAST: 0 mL of Isovue 300. Study performed without Oral Contrast TECHNIQUE: Axial images were obtained from above the diaphragm to the pubic rami in the axial plane a t 5 mm thick sections. Reconstructed images are reviewed on the computer in the coronal plane. FINDINGS: Limited CT sections are obtained the lung bases. Minimal atelectasis is within the lingula. Some thi ckening is along the right mediastinal border likely some mild atelectasis.. CT ABDOMEN: Liver: There is a poorly defined 2 cm slightly hypodense area with indistinct margins within the live r adjacent to the ligamentum teres. Series 3 image 34. This was previously suggested be a hemangioma. Ultrasound could be performed. Stability suggests a benign process. Spleen: Some peripheral calcification within the cortex may be present. Pancreas: Normal Adrenal glands: Punctate calcification may be within the left adrenal gland. The adrenal glands other joyce appear unremarkable. Gallbladder: Surgically absent Kidneys: No masses are evident. No hydronephrosis is present. There is a 1.3 cm cyst measuring 10 H [place] units on the posterior lateral left mid kidney. Nonobstructing renal stones are present on the right measuring 0.3 and 0.2 cm in size. Aorta: Vascular calcification is within the aorta. Inferior vena cava: Normal. CT PELVIS: Loops of bowel within the abdomen and pelvis are normal. The study is performed without oral cont rast limiting the evaluation. Large fecal bolus is at the rectum. Appendix: Not visualized. No suspicious tubular structure inflammatory changes are evident. Urinary bladder: Decompressed with limited evaluation. Genitourinary structures: Uterus is surgically absent. Adnexal regions appear clear. Osseous structures: No suspicious lytic or sclerotic lesions. IMPRESSIONS: 1. Nonobstructing right renal stones. Previous large renal pelvis stone on the right is absent. 2. Suspected hemangioma within the liver.
== END | disposition home or self-care (01) ==
LOC: RADCTMAIN 16:53
PROVIDERS: ATTEND Family Medicine
DX: N20.0 Calculus of kidney (principal); Z88.1 Allergy status to other antibiotic agents; Z88.8 Allergy status to other drugs, medicaments and biological substances
CPT/HCPCS: 74176

== ENCOUNTER 2019-03-08 16:52 | Observation (INO) | payer MEDICARE, OTHER ==
[2019-03-08] MEDS ORDERED: SODIUM CHLORIDE 0.9% 1,000 ML IV STA (16:55)
[2019-03-08 17:40] LABS: Basophils % (A) 1 %; Eosinophils % (A) 1 %; HCT 40.7 % (34.0-46.0); HGB 13.3 gm/dL (11.4-16.0); Lymphocytes % (A) 42 %; MCHC 32.5 g/dL (31.0-37.0); MCV 92.3 fL (80.0-100.0); Mean Platelet Volume 9.1; Monocytes % (A) 5 %; Neutrophils % (A) 49 %; Platelet Count 215 k/uL (150-450); RBC 4.42 m/uL (3.80-5.40); RDW 12.9 % (11.5-15.5); WBC 6.8 k/uL (3.8-10.6)
[2019-03-08 17:41] LABS: Eosinophils # (A) 0.1 k/uL (0-0.7); Lymphocytes # (A) 2.8 k/uL (1.0-4.8); Monocytes # (A) 0.3 k/uL (0-1.0); Neutrophils # (A) 3.3 k/uL (1.3-7.7)
[2019-03-08 17:47] LABS: ALT 14 U/L (9-52); AST 19 U/L (14-36); African American GFR (CKD) >90 (>60 ml/min/1.73 sqM); Albumin 3.9 g/dL (3.5-5.0); Alkaline Phosphatase 95 U/L (38-126); Anion Gap 8 mmol/L; Blood Urea Nitrogen 12 mg/dL (7-17); Calcium 9.3 mg/dL (8.4-10.2); Carbon Dioxide 23 mmol/L (22-30); Chloride 111 mmol/L (98-107); Glucose 90 mg/dL (74-99); Phosphorus 2.1 mg/dL (2.5-4.5); Potassium 3.9 mmol/L (3.5-5.1); Sodium 142 mmol/L (137-145); Total Bilirubin 0.3 mg/dL (0.2-1.3)
--- NOTE | 2019-03-08 17:52 | ED ---
Syncope HPI - General Chief Complaint: Syncope Stated Complaint: SYNCOPE Time Seen by Provider: 03/08/19 16:55 Source: patient, EMS, RN notes reviewed, old records reviewed Mode of arrival: EMS Limitations: no limitations - History of Present Illness Initial Comments: This is a 58-year-old female the ER for evaluation. She presents today for evaluation regards to syncopal event. MD Complaint: felt faint, almost passed out -: hour(s) Prodromal Symptoms: chest pain -: second(s) Witnessed: yes - by bystander Injuries Sustained Associated with Event: None Current Symptoms: back to baseline Treatments Prior to Arrival: none - Related Data Home Medications Medication Instructions Recorded Confirmed ALPRAZolam [Xanax] 1 mg PO DAILY@1200,1700 05/22/14 03/08/19 Albuterol Inhaler [Ventolin Hfa 2 puff INHALATION RT-QID PRN 09/30/16 03/08/19 Inhaler] HYDROmorphone HCL [Dilaudid] 4 mg PO DAILY@1200,2100 PRN 09/30/16 03/08/19 Vilazodone HCl [Viibryd] 20 mg PO DAILY 09/30/16 03/08/19 ALPRAZolam [Xanax] 2 mg PO HS 10/06/16 03/08/19 Albuterol Nebulized [Ventolin 2.5 mg INHALATION RT-QID PRN 10/06/16 03/08/19 Nebulized] Morphine Sulfate ER [Ms Contin] 30 mg PO BID 10/06/16 03/08/19 PARoxetine [Paxil] 20 mg PO DAILY@1200 10/06/16 03/08/19 Ranitidine HCl [Zantac] 150 mg PO AC-BID 10/06/16 03/08/19 Stool Softner 1 cap PO HS 10/06/16 03/08/19 Allergies Allergy/AdvReac Type Severity Reaction Status Date / Time ampicillin Allergy Unknown Verified 03/08/19 18:45 cephalexin monohydrate Allergy Unknown Verified 03/08/19 18:45 [From Keflex] ciprofloxacin Allergy Nausea & Verified 03/08/19 18:45 Vomiting ibuprofen [From Motrin] Allergy Nausea & Verified 03/08/19 18:45 Vomiting nadolol [From Corgard] Allergy Nausea & Verified 03/08/19 18:45 Vomiting aspirin AdvReac Unknown Swelling Verified 03/08/19 18:45 Review of Systems ROS Statement: Those systems with pertinent positive or pertinent negative responses have been documented in the HPI. ROS Other: All systems not noted in ROS Statement are negative. Past Medical History Past Medical History: Asthma, Cancer, Chest Pain / Angina, COPD, Fibromyalgia, GERD/Reflux, Osteoarthritis (OA), Pneumonia Additional Past Medical History / Comment(s): MURMUR,VULVULAR CA,HIATAL HERNIA,MIGRAINES,DIVERTICULITIS, MIGRAINES, CHRONIC CONSTIPATION, BACK PAIN, HX OF FX LEFT ANKLE APPROX 4 YRS AGO, FX RIGHT FOOT 2016. KIDNEY STONES. History of Any Multi-Drug Resistant Organisms: None Reported Past Surgical History: Appendectomy, Bladder Surgery, Cholecystectomy, Hernia Repair, Hysterectomy Additional Past Surgical History / Comment(s): vulvular cancer (14 SX AT [facility]). Past Anesthesia/Blood Transfusion Reactions: Motion Sickness, Postoperative Nausea & Vomiting (PONV) Past Psychological History: Anxiety, Depression Smoking Status: Current every day smoker Past Alcohol Use History: None Reported Past Drug Use History: Marijuana - Past Family History Father Family Medical History: Congestive Heart Failure (CHF) Additional Family Medical History / Comment(s): DAD AT AGE 86 FROM CHF Mother Family Medical History: Cancer Additional Family Medical History / Comment(s): MOM AT AGE 40 FROM CANCER THAT METASTASISED, General Exam Limitations: no limitations General appearance: alert, in no apparent distress Head exam: Present: atraumatic, normocephalic, normal inspection Eye exam: Present: normal appearance, PERRL, EOMI. Absent: scleral icterus, conjunctival injection, periorbital swelling ENT exam: Present: normal exam, mucous membranes moist Neck exam: Present: normal inspection. Absent: tenderness, meningismus, lymphadenopathy Respiratory exam: Present: normal lung sounds bilaterally. Absent: respiratory distress, wheezes, rales, rhonchi, stridor Cardiovascular Exam: Present: regular rate, normal rhythm, normal heart sounds. Absent: systolic murmur, diastolic murmur, rubs, gallop, clicks GI/Abdominal exam: Present: soft, normal bowel sounds. Absent: distended, tenderness, guarding, rebound, rigid Extremities exam: Present: normal inspection, full ROM, normal capillary refill. Absent: tenderness, pedal edema, joint swelling, calf tenderness Back exam: Present: normal inspection Neurological exam: Present: alert, oriented X3, CN II-XII intact Psychiatric exam: Present: normal affect, normal mood Skin exam: Present: warm, dry, intact, normal color. Absent: rash Course Vital Signs 03/08/19 03/08/19 03/08/19 16:56 17:48 19:48 Temperature 98.0 F 98 F Pulse Rate 66 77 55 L Respiratory 18 18 16 Rate Blood Pressure 117/82 147/92 141/74 O2 Sat by Pulse 97 97 97 Oximetry 03/08/19 19:50 Temperature Pulse Rate 77 Respiratory Rate Blood Pressure O2 Sat by Pulse Oximetry - Reevaluation(s) Reevaluation #1: 03/08/19 19:53 medical record is reviewed Reevaluation #2: 03/08/19 19:53 Patient still complaining of severe chest pain requesting pain medication EKG Findings - EKG Comments: EKG Findings:: EKG shows sinus rhythm rate of 63, PA 162, QRS 80, QTC 413 Medical Decision Making - Medical Decision Making 89 female be admitted for chest pain observation as well as treatment of COPD and pain control. - Lab Data Result diagrams: 03/08/19 17:16 03/08/19 17:16 Lab Results 03/08/19 03/08/19 03/08/19 Range/Units 17:16 17:16 17:16 WBC 6.8 (3.8-10.6) k/uL RBC 4.42 (3.80-5.40) m/uL Hgb 13.3 (11.4-16.0) gm/dL Hct 40.7 (34.0-46.0) % MCV 92.3 (80.0-100.0) fL MCH 30.0 (25.0-35.0) pg MCHC 32.5 (31.0-37.0) g/dL RDW 12.9 (11.5-15.5) % Plt Count 215 (150-450) k/uL Neutrophils % 49 % Lymphocytes % 42 % Monocytes % 5 % Eosinophils % 1 % Basophils % 1 % Neutrophils # 3.3 (1.3-7.7) k/uL Lymphocytes # 2.8 (1.0-4.8) k/uL Monocytes # 0.3 (0-1.0) k/uL Eosinophils # 0.1 (0-0.7) k/uL Basophils # 0.0 (0-0.2) k/uL PT 11.0 (9.0-12.0) sec INR 1.0 (<1.2) APTT 27.4 (22.0-30.0) sec D-Dimer 0.50 (<0.60) mg/L FEU Sodium 142 (137-145) mmol/L Potassium 3.9 (3.5-5.1) mmol/L Chloride 111 H (98-107) mmol/L Carbon Dioxide 23 (22-30) mmol/L Anion Gap 8 mmol/L BUN 12 (7-17) mg/dL Creatinine 0.77 (0.52-1.04) mg/dL Est GFR (CKD-EPI)AfAm >90 (>60 ml/min/1.73 sqM) Est GFR (CKD-EPI)NonAf 85 (>60 ml/min/1.73 sqM) Glucose 90 (74-99) mg/dL Calcium 9.3 (8.4-10.2) mg/dL Phosphorus 2.1 L (2.5-4.5) mg/dL Magnesium 2.0 (1.6-2.3) mg/dL Total Bilirubin 0.3 (0.2-1.3) mg/dL AST 19 (14-36) U/L ALT 14 (9-52) U/L Alkaline Phosphatase 95 (38-126) U/L Troponin I (0.000-0.034) ng/mL NT-Pro-B Natriuret Pep pg/mL Total Protein 7.0 (6.3-8.2) g/dL Albumin 3.9 (3.5-5.0) g/dL 03/08/19 03/08/19 Range/Units 17:16 17:16 WBC (3.8-10.6) k/uL RBC (3.80-5.40) m/uL Hgb (11.4-16.0) gm/dL Hct (34.0-46.0) % MCV (80.0-100.0) fL MCH (25.0-35.0) pg MCHC (31.0-37.0) g/dL RDW (11.5-15.5) % Plt Count (150-450) k/uL Neutrophils % % Lymphocytes % % Monocytes % % Eosinophils % % Basophils % % Neutrophils # (1.3-7.7) k/uL Lymphocytes # (1.0-4.8) k/uL Monocytes # (0-1.0) k/uL Eosinophils # (0-0.7) k/uL Basophils # (0-0.2) k/uL PT (9.0-12.0) sec INR (<1.2) APTT (22.0-30.0) sec D-Dimer (<0.60) mg/L FEU Sodium (137-145) mmol/L Potassium (3.5-5.1) mmol/L Chloride (98-107) mmol/L Carbon Dioxide (22-30) mmol/L Anion Gap mmol/L BUN (7-17) mg/dL Creatinine (0.52-1.04) mg/dL Est GFR (CKD-EPI)AfAm (>60 ml/min/1.73 sqM) Est GFR (CKD-EPI)NonAf (>60 ml/min/1.73 sqM) Glucose (74-99) mg/dL Calcium (8.4-10.2) mg/dL Phosphorus (2.5-4.5) mg/dL Magnesium (1.6-2.3) mg/dL Total Bilirubin (0.2-1.3) mg/dL AST (14-36) U/L ALT (9-52) U/L Alkaline Phosphatase (38-126) U/L Troponin I <0.012 (0.000-0.034) ng/mL NT-Pro-B Natriuret Pep 325 pg/mL Total Protein (6.3-8.2) g/dL Albumin (3.5-5.0) g/dL - Radiology Data Radiology results: report reviewed (Chest x-ray CTA chest negative for acute disease), image reviewed Disposition Clinical Impression: Syncope and collapse, Chronic pain, Chest pain, Acute exacerbation of COPD with asthma Disposition: ADMITTED IP TO THIS HOSP Condition: Fair Is patient prescribed a controlled substance at d/c from ED?: No Referrals: Matti Montejo MD [Primary Care Provider] - 1-2 days
[2019-03-08 17:57] LABS: D-Dimer 0.5 mg/L FEU (<0.60); Partial Thromboplastin Time 27.4 sec (22.0-30.0)
--- NOTE | 2019-03-08 19:31 | CT ---
EXAMINATION TYPE: CT angio chest DATE OF EXAM: 03/08/2019 COMPARISON: 03/12/2014 HISTORY: 58-year-old female with chest pain TECHNIQUE: Contiguous axial scanning of the chest performed with IV Contrast, patient injected with 7 0 mL of Isovue 370. Coronal/sagittal MIP reconstructions performed. CT DLP: 196 mGycm Automated exposure control for dose reduction was used. FINDINGS: Heart normal size without pericardial effusion. Aorta normal caliber with conventional arch vessel branching anatomy. Satisfactory opacification of the pulmonary artery system without pulmonary embolus. No thoracic lymphadenopathy by CT size criteria. Prominent right hilar lymph node measures 8 mm. Ther e is some central peribronchial thickening bilaterally and moderate centrilobular emphysema. Stable triangular density perihilar right mid lung along the major fissure suggestive of a intrapulmo nary lymph node. No consolidation or pleural effusion. 6 mm medial left basilar pulmonary nodule, axial image 117 should be reassessed in 6 months. Bandlike atelectasis inferior lingula. Visualized upper abdomen shows some capsular calcifications along the lateral margin of the spleen po ssibly sequela of prior injury, stable from 2013. Moderate irregular atherosclerotic plaque within the infrarenal abdominal aorta, only partially visua lized. Stable partially visualized hemangioma segment 4 left liver lobe measuring up probably 2.4 cm. A 1.5 cm probable cortical cyst left kidney is new from 2013 but still likely benign. Bones: No osseous destructive process. IMPRESSION: 1. NO EVIDENCE FOR PULMONARY EMBOLUS. 2. COPD WITH MODERATE EMPHYSEMA AND A PROMINENT COMPONENT OF CHRONIC BRONCHITIS VERSUS SUPERIMPOSED A CUTE BRONCHITIS. 3. SIX-MONTH FOLLOW-UP CT CHEST RECOMMENDED TO REASSESS A 6 MM MEDIAL LEFT BASILAR PULMONARY NODULE.
[2019-03-08] MEDS ORDERED: methylPREDNISolone SOD SUCCI 125 MG/2 ML VIAL IV STA (19:36)
[2019-03-08] MEDS ORDERED: IPRATROPIUM-ALBUTEROL 3 ML NEB INHALATION STA (19:36)
[2019-03-08] MEDS ORDERED: KETOROLAC 30 MG/ML 1 ML VIAL IVP STA (19:36)
[2019-03-08] MEDS ORDERED: ASPIRIN 81 MG PO STA (19:48)
[2019-03-08] MEDS ORDERED: NITROGLYCERIN SL TABS 0.4 MG TAB SUBLINGUAL PRN (19:48)
[2019-03-08] MEDS ORDERED: IPRATROPIUM-ALBUTEROL 3 ML NEB INHALATION PRN (19:48)
[2019-03-08] MEDS: SODIUM CHLORIDE 0.9% 1,000 ML IV SCH (21:58)
[2019-03-08] MEDS: methylPREDNISolone SOD SUCCI 125 MG/2 ML VIAL IV SCH (21:58)
[2019-03-08] MEDS ORDERED: ALPRAZolam 1 MG TAB PO SCH (22:15)
[2019-03-08] MEDS ORDERED: MORPHINE SULFATE ER 30 MG TABLET PO SCH (22:15)
[2019-03-08] MEDS: FAMOTIDINE 20 MG TAB PO SCH (22:38)
[2019-03-08] MEDS: MORPHINE SULFATE ER 15 MG TABLET PO SCH (22:38)
[2019-03-08] MEDS: DOCUSATE 100 MG CAP PO SCH (22:38)
[2019-03-09 00:35] LABS: Cholesterol 239 mg/dL (<200); HDL Cholesterol 30 mg/dL (40-60); LDL Cholesterol,Calculated 183 mg/dL (0-99); Triglycerides 131 mg/dL (<150)
[2019-03-09] MEDS: SODIUM CHLORIDE 0.9% 1,000 ML IV SCH (05:39)
[2019-03-09] MEDS: methylPREDNISolone SOD SUCCI 125 MG/2 ML VIAL IV SCH ×3 (05:40→18:01)
[2019-03-09 07:24] LABS: Glucose,Whole Blood 179 mg/dL (75-99)
--- NOTE | 2019-03-09 08:20 | P.CRDCN ---
History of Present Illness Consult date: 03/09/19 Consult reason: chest pain History of present illness: This is a 58-year-old female with past medical history of asthma, COPD, fibromyalgia, gastroesophageal reflux disease, valvular cancer, migraine headaches, hiatal hernia, diverticulitis, chronic back pain. Patient gives history that her PCP has decreased her morphine and Dilaudid and Xanax about 5 months ago and she has had episodes of worsening headaches that are accompanied with dizziness and chest pain. Yesterday she had multiple episodes of syncope which apparently her daughter told her she had 10 episodes while she was watching her laying in bed. Patient was concerned that she was on Xanax withdrawal because she took her Xanax late. She also gives history of having us syncopal episode while picking [place] and her neighbors found her. The patient is intermittently tearful during the interview. She states she is feeling great right now. She denies having any chest pain. She states she starts with a headache and with movement the headache worsens and then she develops chest pain. Pain was apparently resolved with Toradol. She describes the pain as sta rting in the mid thoracic area and radiating through to the left breast. No tenderness is noted to the anterior chest with patient does have some tenderness to the thoracic spine area. Troponins have been negative on 3 draws. EKG normal sinus rhythm without acute ST-T wave changes. Cholesterol 239, LDL 183, HDL 30. Review of Systems All systems: negative Constitutional: Reports chronic headaches, Reports chronic pain, Denies chills, Denies fatigue, Denies fever, Denies lethargy, Denies malaise, Denies poor appetite Eyes: denies blurred vision, denies pain Ears, nose, mouth and throat: Reports headache, Reports vertigo, Denies dysphagia, Denies nasal congestion, Denies nasal discharge, Denies sore throat Cardiovascular: Reports chest pain, Reports lightheadedness, Reports syncope, Denies edema, Denies palpitations, Denies shortness of breath Respiratory: Denies cough, Denies cough with sputum, Denies dyspnea, Denies ex cessive sputum, Denies hemoptysis, Denies home oxygen Gastrointestinal: Denies abdominal pain, Denies diarrhea, Denies loss of appetite, Denies nausea, Denies vomiting Genitourinary: Denies dysuria, Denies hematuria, Denies urgency, Denies urinary frequency Musculoskeletal: Denies myalgias Integumentary: Denies pruritus, Denies rash, Denies wounds Neurological: Denies aphasia, Denies change in mentation, Denies change in speech, Denies numbness, Denies seizures, Denies weakness Psychiatric: Denies anxiety, Denies depression Endocrine: Denies fatigue, Denies weight change Past Medical History Past Medical History: Asthma, Cancer, Chest Pain / Angina, COPD, Fibromyalgia, GERD/Reflux, Osteoarthritis (OA), Pneumonia Additional Past Medical History / Comment(s): MURMUR,VULVULAR CA,HIATAL HERNIA,MIGRAINES,DIVERTICULITIS, CHRONIC CONSTIPATION, BACK PAIN, HX OF FX LEFT ANKLE APPROX, FX RIGHT FOOT 2016. KIDNEY STONES. History of Any Multi-Drug Resistant Organisms: None Reported Past Surgical History: Appendectomy, Bladder Surgery, Cholecystectomy, Hernia Repair, Hysterectomy Additional Past Surgical History / Comment(s): vulvular cancer (14 SX AT [facility]). surgical removal of valvular cancer Past Anesthesia/Blood Transfusion Reactions: Motion Sickness, Postoperative Nausea & Vomiting (PONV) Past Psychological History: Anxiety, Depression Smoking Status: Current every day smoker Past Alcohol Use History: None Reported Additional Past Alcohol Use History / Comment(s): STARTED AT AGE 4, SMOKES 2 ciggs per day DOWN FROM 3 PACKS PER DAY. Past Drug Use History: Marijuana Additional Drug Use History / Comment(s): OCCASIONAL MARIJUANA USE -STATES FOR DEPRESSION AND PAIN. - Past Family History Father Family Medical History: Congestive Heart Failure (CHF) Additional Family Medical History / Comment(s): DAD AT AGE 86 FROM CHF Mother Family Medical History: Cancer Additional Family Medical History / Comment(s): MOM AT AGE 40 FROM CANCER THAT METASTASISED, Medications and Allergies Home Medications Medication Instructions Recorded Confirmed Type ALPRAZolam [Xanax] 1 mg PO DAILY@1200,1700 05/22/14 03/08/19 History Albuterol Inhaler [Ventolin Hfa 2 puff INHALATION RT-QID PRN 09/30/16 03/08/19 History Inhaler] HYDROmorphone HCL [Dilaudid] 4 mg PO DAILY@1200,1700 PRN 09/30/16 03/08/19 History Vilazodone HCl [Viibryd] 20 mg PO DAILY 09/30/16 03/08/19 History ALPRAZolam [Xanax] 2 mg PO HS 10/06/16 03/08/19 History Albuterol Nebulized [Ventolin 2.5 mg INHALATION RT-QID PRN 10/06/16 03/08/19 History Nebulized] Morphine Sulfate ER [Ms Contin] 15 mg PO BID 10/06/16 03/08/19 History PARoxetine [Paxil] 20 mg PO DAILY@1200 10/06/16 03/08/19 History Ranitidine HCl [Zantac] 150 mg PO AC-BID 10/06/16 03/08/19 History Stool Softner 1 cap PO HS 10/06/16 03/08/19 History Allergies Allergy/AdvReac Type Severity Reaction Status Date / Time ampicillin Allergy Unknown Verified 03/08/19 21:22 cephalexin monohydrate Allergy Unknown Verified 03/08/19 21:22 [From Keflex] ciprofloxacin Allergy Nausea & Verified 03/08/19 21:22 Vomiting ibuprofen [From Motrin] Allergy Nausea & Verified 03/08/19 21:22 Vomiting nadolol [From Corgard] Allergy Nausea & Verified 03/08/19 21:22 Vomiting aspirin AdvReac Unknown Swelling Verified 03/08/19 21:22 Physical Exam Vitals: Vital Signs Temp Pulse Pulse Resp BP BP Pulse Ox 03/09/19 04:00 98.2 F 64 15 117/60 100 03/08/19 23:36 98.0 F 15 108/59 97 03/08/19 21:44 97.9 F 82 15 142/86 98 03/08/19 20:52 97.7 F 73 16 103/72 95 03/08/19 20:19 90 18 106/74 94 L 03/08/19 19:50 77 03/08/19 19:48 98 F 55 L 16 141/74 97 03/08/19 17:48 77 18 147/92 97 03/08/19 16:56 98.0 F 66 18 117/82 97 Intake and Output 03/08/19 03/09/19 03/09/19 22:59 06:59 14:59 Intake Total 0 Balance 0 Intake: Oral 0 Other: Voiding Method Toilet Toilet # Voids 1 Weight 51.256 kg Gen: This is a 58-year-old female. Patient is in bed and appears to be in no acute respiratory distress. Patient is tearful on and off during evaluation. HEENT: Head is atraumatic, normocephalic. Pupils equal, round. Sclerae is anicteric. NECK: Supple. No JVD. No lymphadenopathy. No thyromegaly. LUNGS: Clear to auscultation. No wheezes or rhonchi. No intercostal retractions. HEART: Regular rate and rhythm. No murmur. No anterior chest wall tenderness. Mild tenderness to the thoracic spine area. ABDOMEN: Soft. Bowel sounds are present. No masses. No tenderness. EXTREMITIES: No pedal edema. No calf tenderness. Dorsalis pedis +2 bilaterally. NEUROLOGICAL: Patient is awake, alert and oriented x3. Cranial nerves 2 through 12 are grossly intact. Results 03/08/19 17:16 03/08/19 17:16 Cardiac Enzymes 03/08/19 03/08/19 03/08/19 Range/Units 17:16 17:16 23:06 AST 19 (14-36) U/L Troponin I <0.012 <0.012 (0.000-0.034) ng/mL 03/09/19 Range/Units 05:45 AST (14-36) U/L Troponin I <0.012 (0.000-0.034) ng/mL Coagulation 03/08/19 Range/Units 17:16 PT 11.0 (9.0-12.0) sec APTT 27.4 (22.0-30.0) sec Lipids 03/08/19 Range/Units 17:16 Triglycerides 131 (<150) mg/dL Cholesterol 239 H (<200) mg/dL HDL Cholesterol 30 L (40-60) mg/dL CBC 03/08/19 Range/Units 17:16 WBC 6.8 (3.8-10.6) k/uL RBC 4.42 (3.80-5.40) m/uL Hgb 13.3 (11.4-16.0) gm/dL Hct 40.7 (34.0-46.0) % Plt Count 215 (150-450) k/uL Comprehensive Metabolic Panel 03/08/19 Range/Units 17:16 Sodium 142 (137-145) mmol/L Potassium 3.9 (3.5-5.1) mmol/L Chloride 111 H (98-107) mmol/L Carbon Dioxide 23 (22-30) mmol/L BUN 12 (7-17) mg/dL Creatinine 0.77 (0.52-1.04) mg/dL Glucose 90 (74-99) mg/dL Calcium 9.3 (8.4-10.2) mg/dL AST 19 (14-36) U/L ALT 14 (9-52) U/L Alkaline Phosphatase 95 (38-126) U/L Total Protein 7.0 (6.3-8.2) g/dL Albumin 3.9 (3.5-5.0) g/dL Current Medications Generic Name Dose Route Start Last Admin Trade Name Freq PRN Reason Stop Dose Admin Albuterol/Ipratropium 3 ml 03/08/19 19:48 Duoneb 0.5 Mg-3 Mg/3 Ml Soln INHALATION RT-Q4H PRN Shortness Of Breath Or Wheezing Alprazolam 2 mg 03/08/19 22:15 03/08/19 22:38 Xanax PO 2 mg HS KHADRA Administration Docusate Sodium 100 mg 03/08/19 22:15 03/08/19 22:38 Colace PO 100 mg DAILY KHADRA Administration Enoxaparin Sodium 40 mg 03/09/19 09:00 Lovenox SQ DAILY KHADRA Famotidine 20 mg 03/08/19 22:15 03/08/19 22:38 Pepcid PO 20 mg AC-BID KHARDA Administration Sodium Chloride 1,000 mls @ 100 mls/hr 03/08/19 20:00 03/09/19 05:39 Saline 0.9% IV 100 mls/hr .Q10H KHADRA Administration Insulin Aspart 0 unit 03/09/19 07:30 Novolog SQ ACHS [facility] Protocol Methylprednisolone Sodium Succinate 60 mg 03/09/19 00:00 03/09/19 05:40 Solu-Medrol IV 60 mg Q6HR KHADRA Administration Morphine Sulfate 15 mg 03/08/19 22:15 03/08/19 22:38 Ms Contin PO 15 mg BID KHADRA Administration Nitroglycerin 0.4 mg 03/08/19 19:48 Nitrostat SUBLINGUAL Q5M PRN Chest Pain Intake and Output 03/08/19 03/09/19 03/09/19 22:59 06:59 14:59 Intake Total 0 Balance 0 Intake: Oral 0 Other: Voiding Method Toilet Toilet # Voids 1 Weight 51.256 kg 03/08/19 17:16 03/08/19 17:16 Assessment and Plan Plan: 1. Syncopal episodes, rapidly recurring according to the patient. No witnessed syncopal episodes since hospitalized. Check orthostatic vital signs. 2. Chest pain, resolved. Acute coronary syndrome ruled out. Patient is cleared from cardiology for discharge home with plan for outpatient stress testing. 3. Dyslipidemia. 4. Asthma and COPD. 5. Fibromyalgia. 6. History of valvular cancer. 7. Tobacco use and dependence, smoking cessation. _Practitioner note has been reviewed, I agree with the documented findings and plan of care. Patient was seen and examined.
[2019-03-09] MEDS ORDERED: ENOXAPARIN 40 MG/0.4 ML SYRINGE SQ SCH (09:00)
[2019-03-09] MEDS ORDERED: ASPIRIN 325 MG TAB PO SCH (09:00)
[2019-03-09] MEDS: DOCUSATE 100 MG CAP PO SCH (09:46)
[2019-03-09] MEDS: FAMOTIDINE 20 MG TAB PO SCH ×2 (09:46→18:01)
[2019-03-09] MEDS: MORPHINE SULFATE ER 15 MG TABLET PO SCH (09:46)
[2019-03-09] MEDS: INSULIN ASPART (NovoLOG) 100 UNIT/ML VIAL SQ SCH ×3 (09:47→18:05)
[2019-03-09 10:09] VITALS: BMI 21.3
[2019-03-09 12:00] LABS: Glucose,Whole Blood 91 mg/dL (75-99)
--- NOTE | 2019-03-09 14:21 | P.HPIM ---
History of Present Illness 58-year-old female came in after a syncopal episode patient doesn't want any of those episodes patient doesn't have any seizure-like activity loss of bowel or bladder incontinence. Patient is on multiple opiates including morphine and Dilaudid. Patient was also apparently complaining of chest pain yesterday she denied any chest pain today to me patient was cleared by cardiology . Patient was on telemetry EKG was obtained as well EKG did not show any significant abnormality patient was cleared for discharge from my cardiology perspective, orthostatic vitals are barely positive from sitting to standing but was receiving IV fluids. Patient denied any lightheadedness at this time. Patient has a elevated LDL of 183. Patient apparently was wheezing yesterday continues to smoke but Quite a Bit. Patient Was Not Easy Wheezing on Exam Patient Received IV Steroids Inhalational Treatments. Incidental Finding of a Pulmonary Nodule 6 Mm on the CAT Scan Will Need a Repeat CAT Scan As an Outpatient and Patient Will Be Referred to Pulmonology Review of Systems REVIEW OF SYSTEMS: CONSTITUTIONAL: No fever, no malaise, no fatigue. HEENT: No recent visual problems or hearing problems. Denied any sore throat. CARDIOVASCULAR: No orthopnea, PND, no palpitations, PULMONARY: As mentioned in HPI GASTROINTESTINAL: No diarrhea, no nausea, no vomiting, no abdominal pain. NEUROLOGICAL: No headaches, no weakness, no numbness. HEMATOLOGICAL: Denies any bleeding or petechiae. GENITOURINARY: Denies any burning micturition, frequency, or urgency. MUSCULOSKELETAL/RHEUMATOLOGICAL: Denies any joint pain, swelling, or any muscle pain. ENDOCRINE: Denies any polyuria or polydipsia. The rest of the 14-point review of systems is negative. Past Medical History Past Medical History: Asthma, Cancer, Chest Pain / Angina, COPD, Fibromyalgia, GERD/Reflux, Osteoarthritis (OA), Pneumonia Additional Past Medical History / Comment(s): MURMUR,VULVULAR CA,HIATAL HERNIA,MIGRAINES,DIVERTICULITIS, CHRONIC CONSTIPATION, BACK PAIN, HX OF FX LEFT ANKLE APPROX, FX RIGHT FOOT 2016. KIDNEY STONES. History of Any Multi-Drug Resistant Organisms: None Reported Past Surgical History: Appendectomy, Bladder Surgery, Cholecystectomy, Hernia Repair, Hysterectomy Additional Past Surgical History / Comment(s): vulvular cancer (14 SX AT [facility]). surgical removal of valvular cancer Past Anesthesia/Blood Transfusion Reactions: Motion Sickness, Postoperative Nausea & Vomiting (PONV) Past Psychological History: Anxiety, Depression Smoking Status: Current every day smoker Past Alcohol Use History: None Reported Additional Past Alcohol Use History / Comment(s): STARTED AT AGE 4, SMOKES 2 ciggs per day DOWN FROM 3 PACKS PER DAY. Past Drug Use History: Marijuana Additional Drug Use History / Comment(s): OCCASIONAL MARIJUANA USE -STATES FOR DEPRESSION AND PAIN. - Past Family History Father Family Medical History: Congestive Heart Failure (CHF) Additional Family Medical History / Comment(s): DAD AT AGE 86 FROM CHF Mother Family Medical History: Cancer Additional Family Medical History / Comment(s): MOM AT AGE 40 FROM CANCER THAT METASTASISED, Medications and Allergies Home Medications Medication Instructions Recorded Confirmed Type ALPRAZolam [Xanax] 1 mg PO DAILY@1200,1700 05/22/14 03/08/19 History Albuterol Inhaler [Ventolin Hfa 2 puff INHALATION RT-QID PRN 09/30/16 03/08/19 History Inhaler] Vilazodone HCl [Viibryd] 20 mg PO DAILY 09/30/16 03/08/19 History ALPRAZolam [Xanax] 2 mg PO HS 10/06/16 03/08/19 History Albuterol Nebulized [Ventolin 2.5 mg INHALATION RT-QID PRN 10/06/16 03/08/19 History Nebulized] Morphine Sulfate ER [Ms Contin] 15 mg PO BID 10/06/16 03/08/19 History PARoxetine [Paxil] 20 mg PO DAILY@1200 10/06/16 03/08/19 History Ranitidine HCl [Zantac] 150 mg PO AC-BID 10/06/16 03/08/19 History Stool Softner 1 cap PO HS 10/06/16 03/08/19 History Albuterol Inhaler [Ventolin Hfa 1 - 2 puff INHALATION Q6HR PRN #1 03/09/19 Rx Inhaler] inhaler Budesonide-Formot 160-4.5 Mcg 2 puff INHALATION BID #1 inhaler 03/09/19 Rx [Symbicort 160-4.5 Mcg Inhaler] Doxycycline Monohydrate [Monodox] 100 mg PO BID 3 Days #6 cap 03/09/19 Rx Allergies Allergy/AdvReac Type Severity Reaction Status Date / Time ampicillin Allergy Unknown Verified 03/08/19 21:22 cephalexin monohydrate Allergy Unknown Verified 03/08/19 21:22 [From Keflex] ciprofloxacin Allergy Nausea & Verified 03/08/19 21:22 Vomiting ibuprofen [From Motrin] Allergy Nausea & Verified 03/08/19 21:22 Vomiting nadolol [From Corgard] Allergy Nausea & Verified 03/08/19 21:22 Vomiting aspirin AdvReac Unknown Swelling Verified 03/08/19 21:22 Physical Exam Vitals: Vital Signs Temp Pulse Pulse Pulse Resp BP BP 03/09/19 11:54 98.4 F 65 03/09/19 08:00 98.5 F 73 17 111/61 03/09/19 04:00 98.2 F 64 15 117/60 03/08/19 23:36 98.0 F 15 108/59 03/08/19 21:44 97.9 F 82 15 142/86 03/08/19 20:52 97.7 F 73 16 103/72 03/08/19 20:19 90 18 106/74 03/08/19 19:50 77 03/08/19 19:48 98 F 55 L 16 141/74 03/08/19 17:48 77 18 147/92 03/08/19 16:56 98.0 F 66 18 117/82 BP BP BP Pulse Ox 03/09/19 11:54 154/77 134/78 133/75 94 L 03/09/19 08:00 98 03/09/19 04:00 100 03/08/19 23:36 97 03/08/19 21:44 98 03/08/19 20:52 95 03/08/19 20:19 94 L 03/08/19 19:50 03/08/19 19:48 97 03/08/19 17:48 97 03/08/19 16:56 97 Intake and Output 03/08/19 03/09/19 03/09/19 22:59 06:59 14:59 Intake Total 0 Balance 0 Intake: Oral 0 Other: Voiding Method Toilet Toilet Toilet # Voids 1 Weight 51.256 kg 51.256 kg PHYSICAL EXAMINATION: GENERAL: The patient is alert and oriented x3, not in any acute distress. Well developed, well nourished. HEENT: Pupils are round and equally reacting to light. EOMI. No scleral icterus. No conjunctival pallor. Normocephalic, atraumatic. No pharyngeal erythema. No thyromegaly. CARDIOVASCULAR: S1 and S2 present. No murmurs, rubs, or gallops. PULMONARY: Chest is clear to auscultation, no wheezing or crackles. ABDOMEN: Soft, nontender, nondistended, normoactive bowel sounds. No palpable organomegaly. MUSCULOSKELETAL: No joint swelling or deformity. EXTREMITIES: No cyanosis, clubbing, or pedal edema. NEUROLOGICAL: Gross neurological examination did not reveal any focal deficits. SKIN: No rashes. Results CBC & Chem 7: 03/08/19 17:16 03/08/19 17:16 Labs: Abnormal Lab Results - Last 24 Hours (Table) 03/08/19 03/08/19 03/09/19 Range/Units 17:16 17:16 07:02 Chloride 111 H (98-107) mmol/L POC Glucose (mg/dL) 179 H (75-99) mg/dL Phosphorus 2.1 L (2.5-4.5) mg/dL Cholesterol 239 H (<200) mg/dL LDL Cholesterol, Calc 183 H (0-99) mg/dL HDL Cholesterol 30 L (40-60) mg/dL Thrombosis Risk Factor Assmnt - Choose All That Apply Any of the Below Risk Factors Present?: Yes Each Factor Represents 1 point: Abnormal pulmonary function (COPD), Age 41-60 years, Hx of IBD Other Risk Factors: No Other congenital or acquired thrombophilia - If yes, enter type in comment: No Thrombosis Risk Factor Assessment Total Risk Factor Score: 3 Thrombosis Risk Factor Assessment Level: Moderate Risk Assessment and Plan Plan: -Syncopal episode: CT angios the chest showed pulmonary nodule no pulmonary embolism cardiology is not recommending echocardiogram. monitor car operator did not show any significant abnormality. They cleared her for discharge patient will be discharged today may be related to her overuse of narcotic medications. Dr. Montejo has been cutting down her narcotics. -Possible COPD exacerbation on admission patient is clear to auscultation and do not believe patient will require any systemic steroids patient will be discharged on inhaled steroids and albuterol follow-up with PCP as an outpatient patient will be discharged and oxygen for bronchitis -Incidental finding of pulmonary nodules for which she'll patient will referred to pulmonology and repeat CAT scan in 6 months -Hyperlipidemia at counseling was provided patient will be discharged on Lipitor -Gastroesophageal reflux disease -Counseling regarding opiate overuse was provided -Fibromyalgia
--- NOTE | 2019-03-09 14:22 | P.DS ---
Providers Date of admission: 03/08/19 19:48 Attending physician: Suzette Pinzon Consults: 03/08/19 19:48 Consult Physician Urgent Consulting Provider: Lia Esquivel Consult Reason/Comments: cp Do you want consulting provider notified?: Yes Primary care physician: Matti Montejo Hospital Course: Please refer to my HPI Patient Condition at Discharge: Fair Plan - Discharge Summary Discharge Rx Participant: No New Discharge Prescriptions: New Doxycycline Monohydrate [Monodox] 100 mg PO BID 3 Days #6 cap Budesonide-Formot 160-4.5 Mcg [Symbicort 160-4.5 Mcg Inhaler] 2 puff INHALATION BID #1 inhaler Albuterol Inhaler [Ventolin Hfa Inhaler] 1 - 2 puff INHALATION Q6HR PRN #1 inhaler PRN Reason: Shortness Of Breath Or Wheezing Atorvastatin Calcium [Lipitor] 20 mg PO HS #30 tab Discontinued HYDROmorphone HCL [Dilaudid] 4 mg PO DAILY@1200,1700 PRN PRN Reason: Pain No Action ALPRAZolam [Xanax] 1 mg PO DAILY@1200,1700 Vilazodone HCl [Viibryd] 20 mg PO DAILY Albuterol Inhaler [Ventolin Hfa Inhaler] 2 puff INHALATION RT-QID PRN PRN Reason: Shortness Of Breath PARoxetine [Paxil] 20 mg PO DAILY@1200 Morphine Sulfate ER [Ms Contin] 15 mg PO BID ALPRAZolam [Xanax] 2 mg PO HS Ranitidine HCl [Zantac] 150 mg PO AC-BID Stool Softner 1 cap PO HS Albuterol Nebulized [Ventolin Nebulized] 2.5 mg INHALATION RT-QID PRN PRN Reason: Shortness Of Breath Discharge Medication List ALPRAZolam [Xanax] 1 mg PO DAILY@1200,1700 05/22/14 [History] Albuterol Inhaler [Ventolin Hfa Inhaler] 2 puff INHALATION RT-QID PRN 09/30/16 [History] Vilazodone HCl [Viibryd] 20 mg PO DAILY 09/30/16 [History] ALPRAZolam [Xanax] 2 mg PO HS 10/06/16 [History] Albuterol Nebulized [Ventolin Nebulized] 2.5 mg INHALATION RT-QID PRN 10/06/16 [History] Morphine Sulfate ER [Ms Contin] 15 mg PO BID 10/06/16 [History] PARoxetine [Paxil] 20 mg PO DAILY@1200 10/06/16 [History] Ranitidine HCl [Zantac] 150 mg PO AC-BID 10/06/16 [History] Stool Softner 1 cap PO HS 10/06/16 [History] Albuterol Inhaler [Ventolin Hfa Inhaler] 1 - 2 puff INHALATION Q6HR PRN #1 inhaler 03/09/19 [Rx] Atorvastatin Calcium [Lipitor] 20 mg PO HS #30 tab 03/09/19 [Rx] Budesonide-Formot 160-4.5 Mcg [Symbicort 160-4.5 Mcg Inhaler] 2 puff INHALATION BID #1 inhaler 03/09/19 [Rx] Doxycycline Monohydrate [Monodox] 100 mg PO BID 3 Days #6 cap 03/09/19 [Rx] Follow up Appointment(s)/Referral(s): Matti Montejo MD [Primary Care Provider] - 3 Days Juan C Goldberg MD [STAFF PHYSICIAN] - 1 Week Discharge Disposition: HOME SELF-CARE
[2019-03-09 16:19] VITALS: BP 124/65; PULSE 79; RESP 16; TEMP 98.2
[2019-03-09] MEDS ORDERED: HYDROmorphone 4 MG TABLET PO PRN (17:00)
[2019-03-09] MEDS ORDERED: ALPRAZolam 0.5 MG TAB PO SCH (21:00)
[2019-03-10] MEDS ORDERED: NON-FORMULARY DRUG (Vilazodone Hcl [Viibryd] 20 MG) PO SCH (09:00)
[2019-03-10] MEDS ORDERED: PARoxetine 20 MG TAB PO SCH (12:00)
== END 2019-03-09 18:48 | disposition home or self-care (01) ==
LOC: EC 16:52 → 1SOBS 19:48
PROVIDERS: ADMIT Hospitalist; ATTEND Hospitalist
DX: R55 Syncope and collapse (principal); R07.89 Other chest pain; J43.9 Emphysema, unspecified; J45.909 Unspecified asthma, uncomplicated; M79.7 Fibromyalgia; E78.5 Hyperlipidemia, unspecified; K21.9 Gastro-esophageal reflux disease without esophagitis; G89.29 Other chronic pain; M54.9 Dorsalgia, unspecified; M19.90 Unspecified osteoarthritis, unspecified site; R91.1 Solitary pulmonary nodule; K59.09 Other constipation; G43.909 Migraine, unspecified, not intractable, without status migrainosus; K57.90 Diverticulosis of intestine, part unspecified, without perforation or abscess without bleeding; F41.9 Anxiety disorder, unspecified; F32.9 Major depressive disorder, single episode, unspecified; R42 Dizziness and giddiness; K58.9 Irritable bowel syndrome, unspecified; F17.210 Nicotine dependence, cigarettes, uncomplicated; Z79.891 Long term (current) use of opiate analgesic; Z79.899 Other long term (current) drug therapy; Z88.0 Allergy status to penicillin; Z88.1 Allergy status to other antibiotic agents; Z88.6 Allergy status to analgesic agent; Z88.8 Allergy status to other drugs, medicaments and biological substances; Z85.44 Personal history of malignant neoplasm of other female genital organs; Z87.442 Personal history of urinary calculi; Z90.49 Acquired absence of other specified parts of digestive tract; Z90.710 Acquired absence of both cervix and uterus; Z87.19 Personal history of other diseases of the digestive system; Z87.01 Personal history of pneumonia (recurrent); Z82.49 Family history of ischemic heart disease and other diseases of the circulatory system
CPT/HCPCS: 96372; 96376; 96361; 96374; 96375; 99285; 36415; 94640; 93005; 85379; 83880; 80061; 80053; 83735; 84100; 84484 ×2; 85025; 85610; 85730; 71275; G0378 ×2; J2930 ×2; J1650; J1885; Q9967

== ENCOUNTER → 2019-09-09 | Outpatient (CLI) | payer MEDICARE, OTHER ==
--- NOTE | 2019-09-09 09:27 | CT ---
EXAMINATION TYPE: CT chest w con DATE OF EXAM: 09/09/2019 COMPARISON: Prior chest CT March 08, [address] 2013. HISTORY: pulmonary nodule CT DLP: 118.7 mGycm. Automated Exposure Control for Dose Reduction was Utilized. TECHNIQUE: CT scan of the thorax is performed following with IV Contrast, patient injected with 100 mL of Isovue 300. FINDINGS: LUNGS: There is redemonstration background moderate underlying emphysematous change most prominent in volving the upper lungs. There is redemonstration of mild left basilar linear scarring. Stable 5 mm l eft basilar medial nodule axial image 48 in retrospect likely was present in 2013 presumed benign. No significant change from most recent CT. Slight nodular thickening along the fissure right mid lung a xial image 35 is unchanged back through 2013 CT. No new greater than 5 mm pulmonary nodules or masses identified bilaterally. No pleural effusion or pneumothorax. MEDIASTINUM: There are no new greater than 1 cm hilar or mediastinal lymph nodes. Some prominent but subcentimeter mediastinal an right hilar lymph nodes are stable. No cardiomegaly is seen. Trace per icardial effusion stable. Coronary artery calcification is redemonstrated which is noted marked unde rlying coronary artery disease. OTHER: Peripheral calcification along spleen stable may be products of old trauma. Irregular centrall y hypodense with peripheral nodular hyperdense lesion measuring 2.5 cm long axis in liver axial image 66 which is felt ro reflect hemangioma is redemonstrated. Cholecystectomy clips again seen. Simple a ppearing 1.5 cm cyst left kidney upper pole level coronal image 56 is again seen. A few subcentimeter hypodense lesions throughout the right kidney are redemonstrated. Moderate to severe mixed plaque in the visualized portion of the abdominal aorta is redemonstrated. IMPRESSION: Stable small left basilar nodule. No new nodules or masses.
== END | disposition home or self-care (01) ==
LOC: RADCTMAIN 06:52
PROVIDERS: ATTEND Internal Medicine
DX: R91.1 Solitary pulmonary nodule (principal)
CPT/HCPCS: 71260; Q9967

== ENCOUNTER 2020-10-04 07:29 | Day surgery (SDC) | payer MEDICARE, OTHER ==
[~2020-10-04 07:29] MED LIST changes: +ACETAMINOPHEN TAB 500 MG TAB PO PRN; +DEXAMETHASONE SOD PHOSPHATE 4 MG/ML 1 ML VIAL IV ONE; +HEPARIN SODIUM,PORCINE 5,000 UNIT/ML 1 ML VIAL SQ PRN; +HYDROmorphone 0.5 MG/0.5 ML SYRINGE IVP PRN; -HYDROmorphone 1 MG/ML 1 ML SYRINGE IVP PRN; -LIDOCAINE 1% 20 ML VIAL (10MG/ML) FOR IV START INTRADERMA PRN; +ONDANSETRON 4 MG/2 ML VIAL IVP ONE; +Pre Op ABX Message 1 EACH MISC MISCELLANE ONE
[2020-10-04] MEDS ORDERED: LIDOCAINE 1% (10MG/ML) FOR IV START INTRADERMA ONE (07:53)
[2020-10-04] MEDS ORDERED: SUCCINYLCHOLINE CHLORIDE 100 MG/5 ML SYR IV ONE (08:33)
[2020-10-04] MEDS ORDERED: LIDOCAINE 1% INJ 10MG/ML (20 ML MDV) ONE (08:33)
[2020-10-04] MEDS ORDERED: fentaNYL (PF) 50 MCG/ML 2 ML AMP ONE (08:33)
[2020-10-04] MEDS ORDERED: MIDAZOLAM 2 MG/2 ML VIAL ONE (08:33)
[2020-10-04] MEDS ORDERED: PROPOFOL 10 MG/ML 20 ML VIAL IV ONE (08:33)
--- NOTE | 2020-10-04 08:39 | P.GSHP ---
History of Present Illness H&P Date: 10/04/20 Chief Complaint: Left flank lipoma 60-year-old female known to our service. Patient with history of left-sided mass. Patient had a CAT scan 2019 showing a lipomatous mass along the abdominal wall left flank region. Patient states this has been getting larger. A she has issues with chronic pain however says there is increasing pain at that location as well. No drainage. This does not fluctuate with activity. Past Medical History Past Medical History: Asthma, Cancer, Chest Pain / Angina, COPD, Fibromyalgia, GERD/Reflux, Osteoarthritis (OA), Pneumonia Additional Past Medical History / Comment(s): MURMUR,VULVULAR CA,HIATAL HERNIA,MIGRAINES,DIVERTICULITIS, CHRONIC CONSTIPATION, BACK PAIN, HX OF FX LEFT ANKLE APPROX, FX RIGHT FOOT 2016. KIDNEY STONES. History of Any Multi-Drug Resistant Organisms: None Reported Past Surgical History: Appendectomy, Bladder Surgery, Cholecystectomy, Hernia Repair, Hysterectomy Additional Past Surgical History / Comment(s): Vulvular cancer (14 SX AT [facility]). Surgical removal of valvular cancer Past Anesthesia/Blood Transfusion Reactions: Motion Sickness, Postoperative Nausea & Vomiting (PONV) Past Psychological History: Anxiety, Depression Smoking Status: Current every day smoker Past Alcohol Use History: None Reported Additional Past Alcohol Use History / Comment(s): STARTED AT AGE 4. SMOKES .5 PPD. Past Drug Use History: Marijuana Additional Drug Use History / Comment(s): OCCASIONAL MARIJUANA USE -STATES FOR DEPRESSION AND PAIN. - Past Family History Father Family Medical History: Congestive Heart Failure (CHF) Additional Family Medical History / Comment(s): DAD AT AGE 86 FROM CHF Mother Family Medical History: Cancer Additional Family Medical History / Comment(s): MOM AT AGE 40 FROM CANCER THAT METASTASISED, Medications and Allergies Home Medications Medication Instructions Recorded Confirmed Type ALPRAZolam [Xanax] 1 mg PO TID 05/22/14 10/04/20 History Vilazodone HCl [Viibryd] 20 mg PO QAM 09/30/16 10/04/20 History Albuterol Nebulized [Ventolin 2.5 mg INHALATION RT-QID PRN 10/06/16 10/04/20 History Nebulized] Morphine Sulfate ER [Ms Contin] 60 mg PO BID 10/06/16 10/04/20 History PARoxetine [Paxil] 20 mg PO DAILY@1200 10/06/16 10/04/20 History Stool Softner 1 cap PO HS 10/06/16 10/04/20 History Famotidine 40 mg PO BID 09/30/20 10/04/20 History HYDROmorphone [Dilaudid] 2 mg PO BID 09/30/20 10/04/20 History Meclizine [Antivert] 25 mg PO BID 09/30/20 10/04/20 History Allergies Allergy/AdvReac Type Severity Reaction Status Date / Time ampicillin Allergy Unknown Verified 09/30/20 11:06 cephalexin monohydrate Allergy Unknown Verified 09/30/20 11:06 [From Keflex] ciprofloxacin Allergy Nausea & Verified 09/30/20 11:06 Vomiting ibuprofen [From Motrin] Allergy Nausea & Verified 09/30/20 11:06 Vomiting nadolol [From Corgard] Allergy Nausea & Verified 09/30/20 11:06 Vomiting aspirin AdvReac Unknown Swelling Verified 09/30/20 11:06 Surgical - Exam Vital Signs Temp Pulse Resp BP Pulse Ox 98.4 F 102 H 18 164/77 90 L 10/04/20 07:38 10/04/20 07:38 10/04/20 07:38 10/04/20 07:38 10/04/20 07:38 Physical exam: General: Well-developed, well-nourished HEENT: Normocephalic, sclerae nonicteric Abdomen: Nontender, nondistended, left sided lipomatous mass measuring 6 x 7 cm, mildly tender Extremities: No edema Neuro: Alert and oriented Assessment and Plan (1) Left flank mass Narrative/Plan: We'll proceed with surgical excision at this time. Risks of bleeding, infection, recurrence, scarring, possible findings of a hernia requiring repair, possible mesh placement, persistent discomforts reviewed. She understands and wishes to proceed. Current Visit: Yes Status: Acute Code(s): R19.00 - INTRA-ABD AND PELVIC SWELLING, MASS AND LUMP, UNSP SITE SNOMED Code(s): 344954974
[2020-10-04] MEDS ORDERED: BUPIVACAINE (PF) 0.25% 30 ML VIAL SQ ONE ×2 (08:44)
[2020-10-04] MEDS ORDERED: CLINDAMYCIN 150 MG/ML 4 ML VIAL IVPB ONE (08:58)
[2020-10-04] MEDS ORDERED: LACTATED RINGERS 1,000 ML IV ONE (09:07)
[2020-10-04] MEDS ORDERED: NALOXONE 0.4 MG/ML 1 ML VIAL IV PRN (09:14)
[2020-10-04] MEDS ORDERED: HYDROcodone/APAP 5-325MG 1 EACH TAB PO PRN (09:14)
--- NOTE | 2020-10-04 09:17 | P.OP ---
Date of Procedure: 10/04/20 Procedure(s) Performed: PREOPERATIVE DIAGNOSIS: Left flank mass POSTOPERATIVE DIAGNOSIS: Left flank lipomatous mass PROCEDURE: Excision left flank lipoma with intermediate closure SURGEON: Connie EBL: Yovani Hamm ANESTHESIA: Gen. COMPLICATIONS: None OPERATIVE PROCEDURE: And placed on the operative table in the supine position. The patient was placed under general anesthesia after moving to the right decubitus position. An incision was made overlying the palpable mass. Dissection through the subcutaneous tissues took place using electrocautery. The palpable mass was identified as being lipomatous. This was right up against the fascia but did not penetrate through the fascia. This was fully excised. There was no evidence of hernia. Size 6 x 6 cm. This was sent to pathology for close examination. Subcutaneous tissues closed using interrupted 3-0 Vicryl sutures. Skin closed using a running 4-0 Monocryl stitch. Length of intermediate closure 6 cm. Skin glue and sterile dressings applied. DISPOSITION: Stable to recovery room
[2020-10-04 09:21] VITALS: TEMP 97.6
[2020-10-04 10:19] VITALS: RESP 20
[2020-10-04 10:34] VITALS: BP 143/76; PULSE 68
== END 2020-10-04 10:49 | disposition home or self-care (01) ==
LOC: OR 07:29
PROVIDERS: ATTEND Surgery
DX: D17.1 Benign lipomatous neoplasm of skin and subcutaneous tissue of trunk (principal); J44.9 Chronic obstructive pulmonary disease, unspecified; F17.210 Nicotine dependence, cigarettes, uncomplicated; F41.9 Anxiety disorder, unspecified; F32.9 Major depressive disorder, single episode, unspecified; M79.7 Fibromyalgia; M19.90 Unspecified osteoarthritis, unspecified site; G43.909 Migraine, unspecified, not intractable, without status migrainosus; K21.9 Gastro-esophageal reflux disease without esophagitis; Z90.49 Acquired absence of other specified parts of digestive tract; Z90.710 Acquired absence of both cervix and uterus; Z98.890 Other specified postprocedural states; Z79.899 Other long term (current) drug therapy; Z87.01 Personal history of pneumonia (recurrent); Z85.44 Personal history of malignant neoplasm of other female genital organs; Z87.442 Personal history of urinary calculi; K57.90 Diverticulosis of intestine, part unspecified, without perforation or abscess without bleeding; Z79.891 Long term (current) use of opiate analgesic; Z88.6 Allergy status to analgesic agent; Z88.1 Allergy status to other antibiotic agents; Z88.0 Allergy status to penicillin; Z82.49 Family history of ischemic heart disease and other diseases of the circulatory system; Z80.9 Family history of malignant neoplasm, unspecified
CPT/HCPCS: 88304; 21931; J2250; J1644; J1100; J2405; J2001; J3010; J0330; J2704; J1170

== ENCOUNTER 2021-08-06 12:42 | Observation (INO) | payer MEDICARE, OTHER ==
[2021-08-06 13:16] LABS: Basophils % (A) 1 %; Eosinophils # (A) 0.3 k/uL (0-0.7); Eosinophils % (A) 4 %; HCT 47.5 % (34.0-46.0); HGB 16.1 gm/dL (11.4-16.0); Lymphocytes # (A) 3.6 k/uL (1.0-4.8); Lymphocytes % (A) 51 %; MCH 32.4 pg (25.0-35.0); MCHC 33.9 g/dL (31.0-37.0); MCV 95.7 fL (80.0-100.0); Mean Platelet Volume 9.2; Monocytes # (A) 0.4 k/uL (0-1.0); Monocytes % (A) 5 %; Neutrophils # (A) 2.6 k/uL (1.3-7.7); Neutrophils % (A) 37 %; Platelet Count 203 k/uL (150-450); RBC 4.97 m/uL (3.80-5.40); RDW 13.1 % (11.5-15.5); WBC 7.1 k/uL (3.8-10.6)
[2021-08-06 13:38] LABS: Calcium 9.4 mg/dL (8.4-10.2); Magnesium 1.8 mg/dL (1.6-2.3); Potassium 4.1 mmol/L (3.5-5.1); Total Bilirubin 0.6 mg/dL (0.2-1.3); Total Protein 7.3 g/dL (6.3-8.2)
[2021-08-06] MEDS ORDERED: NITROGLYCERIN OINT 1 INCH/GM PACKET TOPICAL STA (13:39)
--- NOTE | 2021-08-06 13:41 | ED ---
General Adult HPI - General Chief complaint: Chest Pain Stated complaint: Chest Pains Time Seen by Provider: 08/06/21 12:55 Source: patient, RN notes reviewed, old records reviewed Mode of arrival: ambulatory Limitations: no limitations - History of Present Illness Initial comments: This is a 61-year-old female with past medical history significant for smoking. Patient states she has a history of COPD as well. Patient states at 3:00 this morning started experiencing some left-sided chest pain radiated to her arm and also made her short of breath per patient states the pain lasted approximately 20 minutes at a time. Patient states currently she is still experiencing some chest pain. Patient states she supposed be on oxygen 24 hours a day at home but she's not always on it. Patient denies any history of high blood pressure or diabetes. Patient denies any recent fever chills or cough. Patient denies abdominal pain patient denies any nausea vomiting or diarrhea. Patient denies any diaphoretic episodes. Patient denies any swelling to the legs or calf tenderness. - Related Data Home Medications Medication Instructions Recorded Confirmed ALPRAZolam [Xanax] 1 mg PO TID 05/22/14 10/04/20 Vilazodone HCl [Viibryd] 20 mg PO QAM 09/30/16 10/04/20 Albuterol Nebulized [Ventolin 2.5 mg INHALATION RT-QID PRN 10/06/16 10/04/20 Nebulized] Morphine Sulfate ER [Ms Contin] 60 mg PO BID 10/06/16 10/04/20 PARoxetine [Paxil] 20 mg PO DAILY@1200 10/06/16 10/04/20 Stool Softner 1 cap PO HS 10/06/16 10/04/20 Famotidine 40 mg PO BID 09/30/20 10/04/20 HYDROmorphone [Dilaudid] 2 mg PO BID 09/30/20 10/04/20 Meclizine [Antivert] 25 mg PO BID 09/30/20 10/04/20 Allergies Allergy/AdvReac Type Severity Reaction Status Date / Time ampicillin Allergy Unknown Verified 09/30/20 11:06 cephalexin monohydrate Allergy Unknown Verified 09/30/20 11:06 [From Keflex] ciprofloxacin Allergy Nausea & Verified 09/30/20 11:06 Vomiting ibuprofen [From Motrin] Allergy Nausea & Verified 09/30/20 11:06 Vomiting nadolol [From Corgard] Allergy Nausea & Verified 09/30/20 11:06 Vomiting aspirin AdvReac Unknown Swelling Verified 09/30/20 11:06 Review of Systems ROS Statement: Those systems with pertinent positive or pertinent negative responses have been documented in the HPI. ROS Other: All systems not noted in ROS Statement are negative. Past Medical History Past Medical History: Asthma, Cancer, Chest Pain / Angina, COPD, Fibromyalgia, GERD/Reflux, Osteoarthritis (OA), Pneumonia Additional Past Medical History / Comment(s): MURMUR,VULVULAR CA,HIATAL HERNIA,MIGRAINES,DIVERTICULITIS, CHRONIC CONSTIPATION, BACK PAIN, HX OF FX LEFT ANKLE APPROX, FX RIGHT FOOT 2016. KIDNEY STONES. History of Any Multi-Drug Resistant Organisms: None Reported Past Surgical History: Appendectomy, Bladder Surgery, Cholecystectomy, Hernia Repair, Hysterectomy Additional Past Surgical History / Comment(s): Vulvular cancer (14 SX AT [facility] Surgical removal of valvular cancer Past Anesthesia/Blood Transfusion Reactions: Motion Sickness, Postoperative Nausea & Vomiting (PONV) Past Psychological History: Anxiety, Depression Smoking Status: Current every day smoker Past Alcohol Use History: None Reported Past Drug Use History: Marijuana - Past Family History Father Family Medical History: Congestive Heart Failure (CHF) Additional Family Medical History / Comment(s): DAD AT AGE 86 FROM CHF Mother Family Medical History: Cancer Additional Family Medical History / Comment(s): MOM AT AGE 40 FROM CANCER THAT METASTASISED, General Exam - General Exam Comments Initial Comments: GENERAL: Patient is well-developed and well-nourished. Patient is nontoxic and well- hydrated and is in mild distress. ENT: Neck is soft and supple. No significant lymphadenopathy is noted. Oropharynx is clear. Moist mucous membranes. Neck has full range of motion without eliciting any pain. EYES: The sclera were anicteric and conjunctiva were pink and moist. Extraocular movements were intact and pupils were equal round and reactive to light. Eyelids were unremarkable. PULMONARY: Unlabored respirations. Good breath sounds bilaterally. Patient has slight expiratory wheezing CARDIOVASCULAR: There is a regular rate and rhythm without any murmurs gallops or rubs. ABDOMEN: Soft and nontender with normal bowel sounds. SKIN: Skin is clear with no lesions or rashes and otherwise unremarkable. NEUROLOGIC: Patient is alert and oriented x3. Cranial nerves II through XII are grossly intact. Motor and sensory are also intact. Normal speech, volume and content. Symmetrical smile. MUSCULOSKELETAL: Normal extremities with adequate strength and full range of motion. No lower extremity swelling or edema. No calf tenderness. LYMPHATICS: No significant lymphadenopathy is noted PSYCHIATRIC: Normal psychiatric evaluation. N Limitations: no limitations Course Vital Signs 08/06/21 08/06/21 12:45 13:48 Temperature 98.5 F Pulse Rate 82 69 Respiratory 22 18 Rate Blood Pressure 155/78 127/98 O2 Sat by Pulse 95 95 Oximetry Medical Decision Making - Medical Decision Making EKG shows normal sinus rhythm at 75 bpm [place] interval 232 QRS is 60 QT interval 370 QTC is 413. Patient's EKG shows no ST segment elevation or depression. Chest x-ray shows no acute normalities. Patient received a breathing treatment emergency Department because of her wheezing. This did help the wheezing considerably. Patient is being admitted for the intermittent chest pain since 3:00 this morning. I spoke with Dr. Marlow he agreed to admit the patient admitted the patient I consult to cardiology. - Lab Data Result diagrams: 08/06/21 13:03 08/06/21 13:03 Lab Results 08/06/21 08/06/21 08/06/21 Range/Units 13:03 13:03 13:03 WBC 7.1 (3.8-10.6) k/uL RBC 4.97 (3.80-5.40) m/uL Hgb 16.1 H (11.4-16.0) gm/dL Hct 47.5 H (34.0-46.0) % MCV 95.7 (80.0-100.0) fL MCH 32.4 (25.0-35.0) pg MCHC 33.9 (31.0-37.0) g/dL RDW 13.1 (11.5-15.5) % Plt Count 203 (150-450) k/uL MPV 9.2 Neutrophils % 37 % Lymphocytes % 51 % Monocytes % 5 % Eosinophils % 4 % Basophils % 1 % Neutrophils # 2.6 (1.3-7.7) k/uL Lymphocytes # 3.6 (1.0-4.8) k/uL Monocytes # 0.4 (0-1.0) k/uL Eosinophils # 0.3 (0-0.7) k/uL Basophils # 0.0 (0-0.2) k/uL PT 11.1 (9.0-12.0) sec INR 1.1 (<1.2) APTT 27.5 (22.0-30.0) sec Sodium 139 (137-145) mmol/L Potassium 4.1 (3.5-5.1) mmol/L Chloride 105 (98-107) mmol/L Carbon Dioxide 26 (22-30) mmol/L Anion Gap 8 mmol/L BUN 14 (7-17) mg/dL Creatinine 0.91 (0.52-1.04) mg/dL Est GFR (CKD-EPI)AfAm 78 (>60 ml/min/1.73 sqM) Est GFR (CKD-EPI)NonAf 68 (>60 ml/min/1.73 sqM) Glucose 167 H (74-99) mg/dL Calcium 9.4 (8.4-10.2) mg/dL Magnesium 1.8 (1.6-2.3) mg/dL Total Bilirubin 0.6 (0.2-1.3) mg/dL AST 26 (14-36) U/L ALT 17 (4-34) U/L Alkaline Phosphatase 112 (38-126) U/L Troponin I (0.000-0.034) ng/mL Total Protein 7.3 (6.3-8.2) g/dL Albumin 4.0 (3.5-5.0) g/dL 08/06/21 Range/Units 13:03 WBC (3.8-10.6) k/uL RBC (3.80-5.40) m/uL Hgb (11.4-16.0) gm/dL Hct (34.0-46.0) % MCV (80.0-100.0) fL MCH (25.0-35.0) pg MCHC (31.0-37.0) g/dL RDW (11.5-15.5) % Plt Count (150-450) k/uL MPV Neutrophils % % Lymphocytes % % Monocytes % % Eosinophils % % Basophils % % Neutrophils # (1.3-7.7) k/uL Lymphocytes # (1.0-4.8) k/uL Monocytes # (0-1.0) k/uL Eosinophils # (0-0.7) k/uL Basophils # (0-0.2) k/uL PT (9.0-12.0) sec INR (<1.2) APTT (22.0-30.0) sec Sodium (137-145) mmol/L Potassium (3.5-5.1) mmol/L Chloride (98-107) mmol/L Carbon Dioxide (22-30) mmol/L Anion Gap mmol/L BUN (7-17) mg/dL Creatinine (0.52-1.04) mg/dL Est GFR (CKD-EPI)AfAm (>60 ml/min/1.73 sqM) Est GFR (CKD-EPI)NonAf (>60 ml/min/1.73 sqM) Glucose (74-99) mg/dL Calcium (8.4-10.2) mg/dL Magnesium (1.6-2.3) mg/dL Total Bilirubin (0.2-1.3) mg/dL AST (14-36) U/L ALT (4-34) U/L Alkaline Phosphatase (38-126) U/L Troponin I <0.012 (0.000-0.034) ng/mL Total Protein (6.3-8.2) g/dL Albumin (3.5-5.0) g/dL Disposition Clinical Impression: Chest pain, COPD (chronic obstructive pulmonary disease) Disposition: ADMITTED IP TO THIS HOSP Referrals: Matti Montejo MD [Primary Care Provider] - 1-2 days Time of Disposition: 14:16
[2021-08-06 13:42] LABS: INR 1.1 (<1.2); Partial Thromboplastin Time 27.5 sec (22.0-30.0); Prothrombin Time 11.1 sec (9.0-12.0)
[2021-08-06] MEDS ORDERED: IPRATROPIUM-ALBUTEROL 3 ML NEB INHALATION STA (14:09)
[2021-08-06] MEDS ORDERED: NITROGLYCERIN SL TABS 0.4 MG TAB SUBLINGUAL PRN (14:16)
--- NOTE | 2021-08-06 15:27 | XR ---
EXAMINATION TYPE: XR chest 2V DATE OF EXAM: 08/06/2021 COMPARISON: 05/31/2017 HISTORY: Chest pain TECHNIQUE: Frontal and lateral views of the chest are obtained. FINDINGS: The lungs are clear of consolidative, interstitial masslike opacity. There are tiny bilateral pleural effusions but no pneumothorax. The heart and pulmonary vasculature a re normal. The osseous structures are intact. IMPRESSION: Tiny bilateral pleural effusions with no other significant abnormality seen.
[2021-08-06] MEDS: HYDROmorphone 2 MG TAB PO SCH (18:15)
[2021-08-06] MEDS: NITROGLYCERIN OINT 1 INCH/GM PACKET TOPICAL SCH ×2 (18:16→21:14)
[2021-08-06] MEDS: IPRATROPIUM-ALBUTEROL 3 ML NEB INHALATION PRN (19:51)
[2021-08-06] MEDS: SYMBICORT 160-4.5 MCG INHALER INHALATION PRN (19:51)
[2021-08-06] MEDS ORDERED: DOCUSATE 100 MG CAP PO SCH (21:00)
[2021-08-06] MEDS: MORPHINE SULFATE ER 60 MG TABLET PO SCH (21:13)
[2021-08-06] MEDS: ALPRAZolam 1 MG TAB PO SCH (21:13)
[2021-08-06] MEDS: FAMOTIDINE 20 MG TAB PO SCH (21:14)
--- NOTE | 2021-08-07 00:46 | P.HPIM ---
History of Present Illness H&P Date: 08/06/21 Chief Complaint: Chest pain Patient is a 61-year-old female with a known history of fibromyalgia, COPD on home O2, asthma, GERD, osteoarthritis, history of heart murmur, chronic back pain and constipation and anxiety/depression and currently every day smoker and occasionally marijuana use presents to ER with the complaints of chest pain. Patient says that her chest pain started around 3 AM last night and since then she has been experiencing sharp stabbing pain to be left-sided chest. Radiating to the arm and associated with shortness of breath. Pain lasting about 20 minutes. Patient is still having chest pain when she arrived to the ER. Patient was placed on Nitropaste. Denied any cough or sputum production. No fever no chills. No nausea vomiting or abdominal diaphoresis. No diarrhea. No leg swelling. Chest x-ray showed tiny bilateral pleural effusions with no other significant abnormalities seen. EKG showed normal sinus rhythm. Patient states that her stress test about 2 years ago is negative. Laboratory data showed WBC 7.1 hemoglobin 16.1 and platelets 203 Sodium 139 potassium 4.1 chloride 105 BUN 14 and creatinine 0.91 and blood sugar is 167 liver enzymes are not elevated. Troponin 3 negative Lipid panel was ordered. COVID-19 PCR not detected. Review of Systems Constitutional: Patient denies any fever or chills . No generalized weakness or weight loss. Abdomen: Patient denied nausea vomiting and diarrhea and abdominal pain. Cardiovascular: Does complain of chest pain necessary shortness of breath. No palpitations no leg swelling.. Respiratory: patient denied any cough is from production. No shortness of breath Neurologic: Patient denied any numbness or tingling headache. Musculoskeletal: Patient denies any complaints of joint swelling or deformity. Skin: Negative Psychiatric: Negative Endocrine: No heat or cold intolerance. No recent weight gain. Genitourinary: No dysuria or hematuria. All other 14 point ROS negative except the above Past Medical History Past Medical History: Asthma, Cancer, Chest Pain / Angina, COPD, Fibromyalgia, GERD/Reflux, Osteoarthritis (OA), Pneumonia Additional Past Medical History / Comment(s): MURMUR,VULVULAR CA,HIATAL HERNIA,MIGRAINES,DIVERTICULITIS, CHRONIC CONSTIPATION, BACK PAIN, HX OF FX LEFT ANKLE APPROX, FX RIGHT FOOT 2016. KIDNEY STONES. History of Any Multi-Drug Resistant Organisms: None Reported Past Surgical History: Appendectomy, Bladder Surgery, Cholecystectomy, Hernia Repair, Hysterectomy Additional Past Surgical History / Comment(s): Vulvular cancer (14 SX AT [facility]). Surgical removal of valvular cancer Past Anesthesia/Blood Transfusion Reactions: Motion Sickness, Postoperative Nausea & Vomiting (PONV) Past Psychological History: Anxiety, Depression Smoking Status: Current every day smoker Past Alcohol Use History: None Reported Past Drug Use History: Marijuana - Past Family History Father Family Medical History: Congestive Heart Failure (CHF) Additional Family Medical History / Comment(s): DAD AT AGE 86 FROM CHF Mother Family Medical History: Cancer Additional Family Medical History / Comment(s): MOM AT AGE 40 FROM CANCER THAT METASTASISED, Medications and Allergies Home Medications Medication Instructions Recorded Confirmed Type Vilazodone HCl [Viibryd] 20 mg PO DAILY 09/30/16 08/06/21 History Albuterol Nebulized [Ventolin 2.5 mg INHALATION RT-QID PRN 10/06/16 08/06/21 History Nebulized] PARoxetine [Paxil] 20 mg PO DAILY@1200 10/06/16 08/06/21 History Famotidine 40 mg PO BID@1200,2000 09/30/20 08/06/21 History HYDROmorphone [Dilaudid] 2 mg PO BID@1200,1800 09/30/20 08/06/21 History ALPRAZolam [Xanax] 1 mg PO TID 08/06/21 08/06/21 History Albuterol Inhaler [Ventolin Hfa 1 puff INHALATION RT-TID PRN 08/06/21 08/06/21 History Inhaler] Budesonide/Formoterol Fumarate 1 puff INHALATION RT-BID PRN 08/06/21 08/06/21 History [Symbicort 160-4.5 Mcg Inhaler] Docusate [Colace] 100 mg PO HS 08/06/21 08/06/21 History Morphine Sulfate ER [Ms Contin] 60 mg PO BID 08/06/21 08/06/21 History Multivitamins, Thera [Multivitamin 1 tab PO DAILY 08/06/21 08/06/21 History (formulary)] Atorvastatin [Lipitor] 20 mg PO HS #30 tablet 08/07/21 Rx Allergies Allergy/AdvReac Type Severity Reaction Status Date / Time ampicillin Allergy Unknown Verified 08/06/21 15:12 cephalexin monohydrate Allergy Unknown Verified 08/06/21 15:12 [From Keflex] ciprofloxacin Allergy Nausea & Verified 08/06/21 15:12 Vomiting ibuprofen [From Motrin] Allergy Nausea & Verified 08/06/21 15:12 Vomiting nadolol [From Corgard] Allergy Nausea & Verified 08/06/21 15:12 Vomiting aspirin AdvReac Unknown Swelling Verified 08/06/21 15:12 Physical Exam Vitals: Vital Signs Temp Pulse Resp BP Pulse Ox 08/06/21 16:38 98.5 F 58 L 18 129/77 98 08/06/21 16:00 58 L 18 129/77 98 08/06/21 15:50 58 L 08/06/21 15:39 61 08/06/21 15:00 56 L 18 127/72 95 08/06/21 13:48 69 18 127/98 95 08/06/21 12:45 98.5 F 82 22 155/78 95 Intake and Output 08/06/21 08/06/21 08/06/21 06:59 14:59 22:59 Other: Weight 49.895 kg PHYSICAL EXAMINATION: Patient is lying in the bed comfortably, no acute distress, awake alert and oriented.. HEENT: Normocephalic. Neck is supple. Pupils reactive. Nostrils clear. Oral ca vity is moist. Neck reveals no JVD, carotid bruits, or thyromegaly. CHEST EXAMINATION: Trachea is central. Symmetrical expansion. Reproducible chest pain. Lung [place] clear to auscultation and percussion. CARDIAC: Normal S1, S2 with no gallops. No murmurs ABDOMEN: Soft. Bowel sounds normal. No organomegaly. No abdominal bruits. Extremities: reveal no edema. No clubbing or cyanosis Neurologically awake, alert, oriented x3 with well-coordinated movements. No focal deficits noted Skin: No rash or skin lesions. Psychiatric: Coperative. Nonsuicidal Musculoskeletal: No joint swelling or deformity. Normal range of motion. Results CBC & Chem 7: 08/06/21 13:03 08/06/21 13:03 Labs: Abnormal Lab Results - Last 24 Hours (Table) 08/06/21 08/06/21 Range/Units 13:03 13:03 Hgb 16.1 H (11.4-16.0) gm/dL Hct 47.5 H (34.0-46.0) % Glucose 167 H (74-99) mg/dL Thrombosis Risk Factor Assmnt - DVT/VTE Prophylaxis DVT/VTE Prophylaxis: Pharmacologic Prophylaxis ordered Assessment and Plan Assessment: Atypical chest pain. Likely musculoskeletal. Ruled out ACS. Fibromyalgia COPD on home oxygen. GERD History of vulvar cancer Asthma Osteoarthritis Chronic constipation and Chronic back pain Anxiety/depression next line currently every day smoker Occasional marijuana use DVT prophylaxis with heparin subcu next plan: The patient be continued on telemetry monitoring. Serial EKG and troponin 3. Lipid panel was ordered. Cardiac was consulted. Continue with home medications and pain management. continue to follow closely. Smoking cessation has been counseled. Time with Patient: Greater than 30
[2021-08-07] MEDS ORDERED: ACETAMINOPHEN TAB 325 MG TAB PO PRN (03:19)
[2021-08-07] MEDS: NITROGLYCERIN OINT 1 INCH/GM PACKET TOPICAL SCH ×2 (05:10→11:36)
[2021-08-07] MEDS: IPRATROPIUM-ALBUTEROL 3 ML NEB INHALATION PRN (08:58)
[2021-08-07] MEDS: SYMBICORT 160-4.5 MCG INHALER INHALATION PRN (08:58)
[2021-08-07] MEDS ORDERED: MULTIVITAMINS, THERA 1 EACH TAB PO SCH (09:00)
[2021-08-07] MEDS ORDERED: NON FORMULARY DRUG (Vilazodone Hcl [Viibryd] 20 MG Tablet) PO SCH (09:00)
[2021-08-07] MEDS: MORPHINE SULFATE ER 60 MG TABLET PO SCH (09:12)
[2021-08-07] MEDS: ALPRAZolam 1 MG TAB PO SCH (09:12)
[2021-08-07 10:02] LABS: Chol/HDL Ratio 8.23 Ratio; LDL Cholesterol,Calculated 184.6 mg/dL (0.0-131.0)
[2021-08-07] MEDS: HYDROmorphone 2 MG TAB PO SCH (11:37)
[2021-08-07] MEDS: FAMOTIDINE 20 MG TAB PO SCH (11:38)
[2021-08-07] MEDS ORDERED: PARoxetine 20 MG TAB PO SCH (12:00)
--- NOTE | 2021-08-07 14:17 | P.CRDCN ---
History of Present Illness Consult date: 08/07/21 Consult reason: chest pain History of present illness: HISTORY OF PRESENT ILLNESS This is a 61-year-old female with past medical history of asthma, COPD, fibromyalgia, gastroesophageal reflux disease, vulvular cancer, migraine headaches, hiatal hernia, diverticulitis, chronic back pain. Patient complains of left-sided lateral chest pain, inability to eat, nausea is been going on for months or years. She complains of dizziness when she takes a deep breath. Patient was last seen February 2019 at which time she presented with syncopal episode and it was recommended the patient follow up outpatient for stress test which patient reports as chest test is negative. EKG sinus rhythm with no acute ST changes. Chest x-ray reveals tiny bilateral pleural effusions with no significant abnormality. Laboratory studies: Troponin negative on 3 draws. CBC unremarkable. Electrolytes and renal function normal. Blood sugar 167. Magnesium 1.8. Liver function tests normal. Triglycerides 162, LDL 184, cholesterol 247, HDL 30. Coronavirus PCR not detected. REVIEW OF SYSTEMS Constitutional: No fever, no chills. No weakness, fatigue or lethargy. EENT: No headache. No dizziness. Lungs: No shortness of breath, cough, no sputum production. No wheezing. Cardiovascular: Reports chest pain, no lower extremity edema. No palpitations. No paroxysmal nocturnal dyspnea. No orthopnea. No lightheadedness or dizziness. No syncopal episodes. Abdominal: No abdominal pain. Reports nausea, vomiting. No diarrhea. No constipation. No bloody or tarry stools.. No loss of appetite. Genitourinary: No dysuria.. No urinary retention. Musculoskeletal: No myalgias. No muscle weakness, no gait dysfunction, no frequent falls. No back pain. No neck pain. Integumentary: No wounds, no lesions. No rash or pruritus. No unusual bruising. Neurologic: No aphasia. No facial droop. No change in mentation. No head injury. No headache. No paralysis. No paresthesia. Psychiatric: No depression. No anxiety. Endocrine: No abnormal blood sugars. PHYSICAL EXAMINATION Gen: This is a thin cachectic appearing 61 year old female patient. Patient is resting in bed, intermittently tearful during examination VS: Afebrile, heart rate 48-62, blood pressure 122/57, pulse ox 96% on room air HEENT: Head is atraumatic, normocephalic. Pupils equal, round. Sclerae is anicteric. NECK: Supple. No JVD. No lymphadenopathy. No thyromegaly. LUNGS: Scattered rhonchi and scattered expiratory wheeze No intercostal retractions. HEART: Regular rate and rhythm. No murmur. Positive tenderness to the left lateral chest wall. ABDOMEN: Soft. Bowel sounds are present. No masses. No tenderness. EXTREMITIES: No pedal edema. No calf tenderness. NEUROLOGICAL: Patient is awake, alert and oriented x3. Cranial nerves 2 through 12 are grossly intact. ASSESSMENT Left-sided chest pain, musculoskeletal Nausea and loss of appetite Valvular Cancer Asthma COPD Fibromyalgia Gastroesophageal reflux disease PLAN Patient is cleared for discharge from cardiology Patient can undergo outpatient stress test If stress test is abnormal, follow up with cardiology Thank you kindly for this consultation. Nurse practitioner note has been reviewed, I agree with documented findings and plan of care. Patient was seen and examined. Past Medical History Past Medical History: Asthma, Cancer, Chest Pain / Angina, COPD, Fibromyalgia, GERD/Reflux, Osteoarthritis (OA), Pneumonia Additional Past Medical History / Comment(s): MURMUR,VULVULAR CA,HIATAL HERNIA,MIGRAINES,DIVERTICULITIS, CHRONIC CONSTIPATION, BACK PAIN, HX OF FX LEFT ANKLE APPROX, FX RIGHT FOOT 2016. KIDNEY STONES. History of Any Multi-Drug Resistant Organisms: None Reported Past Surgical History: Appendectomy, Bladder Surgery, Cholecystectomy, Hernia Repair, Hysterectomy Additional Past Surgical History / Comment(s): Vulvular cancer (14 SX AT [facility]). Surgical removal of valvular cancer Past Anesthesia/Blood Transfusion Reactions: Motion Sickness, Postoperative Nausea & Vomiting (PONV) Past Psychological History: Anxiety, Depression Smoking Status: Current every day smoker Past Alcohol Use History: None Reported Past Drug Use History: Marijuana - Past Family History Father Family Medical History: Congestive Heart Failure (CHF) Additional Family Medical History / Comment(s): DAD AT AGE 86 FROM CHF Mother Family Medical History: Cancer Additional Family Medical History / Comment(s): MOM AT AGE 40 FROM CANCER THAT METASTASISED, Medications and Allergies Home Medications Medication Instructions Recorded Confirmed Type Vilazodone HCl [Viibryd] 20 mg PO DAILY 09/30/16 08/06/21 History Albuterol Nebulized [Ventolin 2.5 mg INHALATION RT-QID PRN 10/06/16 08/06/21 History Nebulized] PARoxetine [Paxil] 20 mg PO DAILY@1200 10/06/16 08/06/21 History Famotidine 40 mg PO BID@1200,2000 09/30/20 08/06/21 History HYDROmorphone [Dilaudid] 2 mg PO BID@1200,1800 09/30/20 08/06/21 History ALPRAZolam [Xanax] 1 mg PO TID 08/06/21 08/06/21 History Albuterol Inhaler [Ventolin Hfa 1 puff INHALATION RT-TID PRN 08/06/21 08/06/21 History Inhaler] Budesonide/Formoterol Fumarate 1 puff INHALATION RT-BID PRN 08/06/21 08/06/21 History [Symbicort 160-4.5 Mcg Inhaler] Docusate [Colace] 100 mg PO HS 08/06/21 08/06/21 History Morphine Sulfate ER [Ms Contin] 60 mg PO BID 08/06/21 08/06/21 History Multivitamins, Thera [Multivitamin 1 tab PO DAILY 08/06/21 08/06/21 History (formulary)] Allergies Allergy/AdvReac Type Severity Reaction Status Date / Time ampicillin Allergy Unknown Verified 08/06/21 15:12 cephalexin monohydrate Allergy Unknown Verified 08/06/21 15:12 [From Keflex] ciprofloxacin Allergy Nausea & Verified 08/06/21 15:12 Vomiting ibuprofen [From Motrin] Allergy Nausea & Verified 08/06/21 15:12 Vomiting nadolol [From Corgard] Allergy Nausea & Verified 08/06/21 15:12 Vomiting aspirin AdvReac Unknown Swelling Verified 08/06/21 15:12 Physical Exam Vitals: Vital Signs Temp Pulse Pulse Resp BP BP Pulse Ox 08/07/21 09:16 62 08/07/21 08:58 62 08/07/21 07:00 97.9 F 48 L 16 122/57 96 08/07/21 01:52 98.5 F 58 L 16 110/71 97 08/07/21 01:50 16 08/06/21 20:01 60 08/06/21 20:00 98.1 F 48 L 16 150/75 98 08/06/21 19:51 56 L 08/06/21 16:55 97.7 F 61 18 169/83 98 08/06/21 16:38 98.5 F 58 L 18 129/77 98 08/06/21 16:00 58 L 18 129/77 98 08/06/21 15:50 58 L 08/06/21 15:39 61 08/06/21 15:00 56 L 18 127/72 95 08/06/21 13:48 69 18 127/98 95 08/06/21 12:45 98.5 F 82 22 155/78 95 Intake and Output 08/06/21 08/07/21 08/07/21 22:59 06:59 14:59 Other: Voiding Method Toilet Toilet # Voids 2 2 Results 08/06/21 13:03 08/06/21 13:03 Cardiac Enzymes 08/06/21 08/06/21 08/06/21 Range/Units 13:03 13:03 16:10 AST 26 (14-36) U/L Troponin I <0.012 <0.012 (0.000-0.034) ng/mL 08/06/21 Range/Units 19:05 AST (14-36) U/L Troponin I <0.012 (0.000-0.034) ng/mL Coagulation 08/06/21 Range/Units 13:03 PT 11.1 (9.0-12.0) sec APTT 27.5 (22.0-30.0) sec CBC 08/06/21 Range/Units 13:03 WBC 7.1 (3.8-10.6) k/uL RBC 4.97 (3.80-5.40) m/uL Hgb 16.1 H (11.4-16.0) gm/dL Hct 47.5 H (34.0-46.0) % Plt Count 203 (150-450) k/uL Comprehensive Metabolic Panel 08/06/21 Range/Units 13:03 Sodium 139 (137-145) mmol/L Potassium 4.1 (3.5-5.1) mmol/L Chloride 105 (98-107) mmol/L Carbon Dioxide 26 (22-30) mmol/L BUN 14 (7-17) mg/dL Creatinine 0.91 (0.52-1.04) mg/dL Glucose 167 H (74-99) mg/dL Calcium 9.4 (8.4-10.2) mg/dL AST 26 (14-36) U/L ALT 17 (4-34) U/L Alkaline Phosphatase 112 (38-126) U/L Total Protein 7.3 (6.3-8.2) g/dL Albumin 4.0 (3.5-5.0) g/dL Current Medications Generic Name Dose Route Start Last Admin Trade Name Freq PRN Reason Stop Dose Admin Acetaminophen 650 mg 08/07/21 03:19 08/07/21 03:32 Acetaminophen Tab 325 Mg Tab PO 650 mg Q6HR PRN Administration Fever and/ or Pain Albuterol/Ipratropium 3 ml 08/06/21 14:17 08/07/21 08:58 Ipratropium-Albuterol 3 Ml Neb INHALATION 3 ml RT-QID PRN Administration Shortness Of Breath Or Wheezing Alprazolam 1 mg 08/06/21 22:00 08/07/21 09:12 Alprazolam 1 Mg Tab PO 1 mg TID KHADRA Administration Budesonide/Formoterol Fumarate 1 puff 08/06/21 17:22 08/07/21 08:58 Symbicort 160-4.5 Mcg Inhaler INHALATION 1 puff RT-BID PRN Administration Shortness Of Breath Docusate Sodium 100 mg 08/06/21 21:00 08/06/21 21:14 Docusate 100 Mg Cap PO 100 mg HS KHADRA Administration Famotidine 40 mg 08/06/21 20:00 08/06/21 21:14 Famotidine 20 Mg Tab PO 40 mg BID@1200,2000 KHADRA Administration Hydromorphone HCl 2 mg 08/06/21 18:00 08/06/21 18:15 Hydromorphone 2 Mg Tab PO 2 mg BID@1200,1800 KHADRA Administration Morphine Sulfate 60 mg 08/06/21 21:00 08/07/21 09:12 Morphine Sulfate Er 60 Mg Tablet PO 60 mg BID KHADRA Administration Protocol Multivitamins 1 each 08/07/21 09:00 08/07/21 09:12 Multivitamins, Thera 1 Each Tab PO 1 each DAILY KHADRA Administration Nitroglycerin 0.4 mg 08/06/21 14:16 Nitroglycerin Sl Tabs 0.4 Mg Tab SUBLINGUAL Q5M PRN Chest Pain Nitroglycerin 1 inch 08/06/21 18:00 08/07/21 05:10 Nitroglycerin Oint 1 Inch/Gm Packet TOPICAL Not Given Q6HR [facility] Non-Formulary Medication 20 mg 08/07/21 09:00 Vilazodone Hcl [Viibryd] PO DAILY [facility] Paroxetine HCl 20 mg 08/07/21 12:00 Paroxetine 20 Mg Tab PO DAILY@1200 [facility] Intake and Output 08/06/21 08/07/21 08/07/21 22:59 06:59 14:59 Other: Voiding Method Toilet Toilet # Voids 2 2 08/06/21 13:03 08/06/21 13:03
[2021-08-07 15:15] VITALS: BP 150/74; PULSE 53; RESP 18; TEMP 98.1
== END 2021-08-07 15:55 | disposition home or self-care (01) ==
LOC: EC 12:42 → 6NMEDSUR 14:18
PROVIDERS: ADMIT Internal Medicine; ATTEND Internal Medicine
DX: R07.89 Other chest pain (principal); J44.9 Chronic obstructive pulmonary disease, unspecified; F17.200 Nicotine dependence, unspecified, uncomplicated; M79.7 Fibromyalgia; K21.9 Gastro-esophageal reflux disease without esophagitis; M19.90 Unspecified osteoarthritis, unspecified site; F41.9 Anxiety disorder, unspecified; F32.9 Major depressive disorder, single episode, unspecified; R01.1 Cardiac murmur, unspecified; G43.909 Migraine, unspecified, not intractable, without status migrainosus; K57.92 Diverticulitis of intestine, part unspecified, without perforation or abscess without bleeding; K59.09 Other constipation; R42 Dizziness and giddiness; R63.0 Anorexia; R11.2 Nausea with vomiting, unspecified; J90 Pleural effusion, not elsewhere classified; G89.29 Other chronic pain; M54.9 Dorsalgia, unspecified; Z20.822 Contact with and (suspected) exposure to COVID-19; Z99.81 Dependence on supplemental oxygen; Z91.19 Patient's noncompliance with other medical treatment and regimen; Z71.6 Tobacco abuse counseling; Z87.01 Personal history of pneumonia (recurrent); Z87.442 Personal history of urinary calculi; Z85.44 Personal history of malignant neoplasm of other female genital organs; Z79.899 Other long term (current) drug therapy; Z79.891 Long term (current) use of opiate analgesic; Z79.51 Long term (current) use of inhaled steroids; Z88.0 Allergy status to penicillin; Z88.8 Allergy status to other drugs, medicaments and biological substances; Z88.6 Allergy status to analgesic agent; Z88.1 Allergy status to other antibiotic agents; Z90.49 Acquired absence of other specified parts of digestive tract; Z90.710 Acquired absence of both cervix and uterus; Z98.890 Other specified postprocedural states; Z82.49 Family history of ischemic heart disease and other diseases of the circulatory system; Z80.9 Family history of malignant neoplasm, unspecified
CPT/HCPCS: 99285; 36415; 94640 ×3; 93005; 80061; 80053; 83735; 84484; 85025; 85610; 85730; 87635; 71046; G0378 ×2

== ENCOUNTER → 2022-03-29 | Outpatient (CLI) | payer MEDICARE, OTHER ==
--- NOTE | 2022-03-30 10:09 | BD ---
EXAMINATION TYPE: Axial Bone Density DATE OF EXAM: 03/29/2022 COMPARISON: NONE CLINICAL HISTORY: 62 years year old Female. ICD-10 CODE: N95.1 POST MENOPAUSAL STATE Height: 61 Weight: 101.9 FRAX RISK QUESTIONS: Alcohol (3 or more units per day): NO Family History (Parent hip fracture): NO Glucocorticoids (More than 3mos): NO History of Fracture in Adulthood: YES, BILATERAL FEET Secondary Osteoporosis: 1. Type 1 Diabetes: NO 2. Hyperthyroidism: NO 3. Menopause before 45: YES 4. Malnutrition: YES 5. Chronic liver disease: NO Rheumatoid Arthritis: YES Current Tobacco Use: YES RISK FACTORS HISTORY OF: Hip Fracture (Right/Left): NO Spine Fracture: NO History of Wrist Fracture: NO Surgery to Spine/Hip(right/left)/Wrist (right/left): NO Family History of Osteoporosis: NO Active: NO Diet low in dairy products/other sources of calcium: YES Postmenopausal woman: NO Take estrogen and/or progesterone medications: NO Lost more than 2 inches in height since high school: NO Frequent falls: YES Poor Health: YES Hyperparathyroidism: NO Adrenal Insufficiency: NO MEDICATIONS: Prednisone or other steroids: NO Thyroid Medications: NO Osteoporosis Medications:NO How Long: Additional Medications: VIT D, MULTI VIT, REFLUX MEDS, PAIN MEDS EXAM MEASUREMENTS: Bone mineral densitometry was performed using the [employer]. Bone mineral density as measured about the Lumbar spine is: ----- L1-L4(G/cm2): 0.864 T Score Values are as follows: ----- L1: -2.6 ----- L2: -2.2 ----- L3: -2.9 ----- L4: -2.9 ----- L1-L4: -2.6 Bone mineral density has: INCREASED 6.4 % since study of: 2006 STUDY Bone mineral density about the R hip (g/cm2): 0.794 Bone mineral density about the L hip (g/cm2): 0.689 T Score values are as follows: -----R Neck: -1.8 -----L Neck: -2.5 -----R Total: -2.2 -----L Total: -2.7 Bone mineral density has: INCREASED 3.9 % since study of: 2007 STUDY FRAX%s: The graph provided illustrates a 25.4% chance for a major osteoporotic fx and a 9.7% chance f or the hips probability for fx in 10 years time. IMPRESSION: Osteoporosis (T Score less than -2.5). There is increased fracture risk and therapy is usually indicated based on age. Re-Screen 1-2 years. NOTE: T-SCORE=SD OF THE YOUNG ADULT MEAN.
--- NOTE | 2022-03-31 07:40 | MM ---
Reason for Exam: Screening (asymptomatic). Last mammogram was performed 10 year(s) and 2 month(s) ago. Patient History: Menarche at age 9. First Full-Term at age 17. Left ovary removed at age 34. Right ovary removed at age 34. Hysterectomy at age 34. Postmenopausal. Endometrial cancer, age 40. Estrogen for 5 years from age 34 until age 39. Progesterone for 5 years from age 34 until age 39. Sister had breast cancer, age 50. Mother had breast cancer, age 35. Risk Values: Bianca 5 year model risk: 8.2%. NCI Lifetime model risk: 30.4%. Prior Study Comparison: 10/21/2009 Bilateral Screening Mammogram, [facility]. 02/20/2012 Bilateral Screening Mammogram, [facility]. 03/01/2012 Right Diagnostic Mammogram, [facility]. Tissue Density: There are scattered fibroglandular densities. Findings: Analyzed By CAD. There is no suspicious group of microcalcifications or new suspicious mass in either breast. Overall Assessment: Negative, BI-RAD 1 Management: Screening Mammogram of both breasts in 1 year. A clinical breast exam by your physician is recommended on an annual basis and results should be correlated with mammographic findings. Electronically signed and approved by: Rich Albrecht M.D.
== END | disposition home or self-care (01) ==
LOC: RADMAMWWP 15:58
PROVIDERS: ATTEND Family Medicine
DX: Z12.31 Encounter for screening mammogram for malignant neoplasm of breast (principal); N95.1 Menopausal and female climacteric states
CPT/HCPCS: 77063; 77067; 77080

== ENCOUNTER → 2022-08-31 | Outpatient (CLI) | payer MEDICARE, OTHER ==
--- NOTE | 2022-08-31 14:31 | CTL ---
EXAMINATION TYPE: CT Low Dose Lung DATE OF EXAM ORDERED: 08/31/2022 HISTORY: . Lung cancer screening CT DLP: 38.[address] CTDI: 1.1 mGy Automated exposure control for dose reduction was used. SCREENING VISIT: COMPARISON: 03/08/2019 TECHNIQUE: Low dose computed tomography scan was performed through the chest at 1 mm thick sections a nd reconstructed images in multiple planes at 1 mm and [address] DIAGNOSTIC QUALITY: Satisfactory FINDINGS: Heart normal size without pericardial effusion. Aorta normal caliber with conventional arch vessel br anching anatomy. Satisfactory opacification of the pulmonary artery system without pulmonary embolus. No thoracic lymphadenopathy by CT size criteria. Prominent right hilar lymph node measures 8 mm. Ther e is some central peribronchial thickening bilaterally and moderate centrilobular emphysema. Stable 6 mm density perihilar right mid lung along the major fissure suggestive of a intrapulmonary l ymph node. No consolidation or pleural effusion. 6 mm medial left basilar pulmonary nodule, stable. 3 mm calcified nodule medial margin anterior segme nt left upper lobe axial image 11 have a tiny granuloma Bandlike atelectasis inferior lingula. Visualized upper abdomen shows some capsular calcifications along the lateral margin of the spleen po ssibly sequela of prior injury, stable from 2013. Atherosclerotic change aorta. Previously noted hepa tic not included in the [id number]. There is a left renal lesion measuring 30 Hounsfield units whi ch does not meet the criteria for simple cyst measuring 2.1 cm. Bones: No osseous destructive process . Benign-appearing left adrenal calcification. IMPRESSION: 1. COPD with stable-appearing bilateral pulmonary nodules the largest measuring 6 mm. 2. Coronary artery calcification. 3. Left renal lesion does not meet the criteria for simple cyst by noncontrast CT scan recommend foll ow-up ultrasound. Measures 2.1 cm and previously measured 1.[address] scan of 10/08/2018. CT LUNG RAD AND CT CHEST RECOMMENDATION: Lung-Rad 3 Probably Benign: 6 month follow-up LDCT. S Modifier (other clinically significant findings): S
== END | disposition home or self-care (01) ==
LOC: RADCTMAIN 13:53
PROVIDERS: ATTEND Family Medicine
DX: Z12.2 Encounter for screening for malignant neoplasm of respiratory organs (principal); I25.10 Atherosclerotic heart disease of native coronary artery without angina pectoris; J44.9 Chronic obstructive pulmonary disease, unspecified; Z87.891 Personal history of nicotine dependence
CPT/HCPCS: 71271

== ENCOUNTER → 2022-09-11 | Outpatient (CLI) | payer MEDICARE, OTHER ==
--- NOTE | 2022-09-11 15:36 | US ---
EXAMINATION TYPE: US kidneys/renal and bladder DATE OF EXAM: 09/11/2022 COMPARISON: CT 08/31/2022, CT 10/08/2018, Ultrasound 12/20/2015 CLINICAL HISTORY: N49.51 LESION ON LT KIDNEY. EXAM MEASUREMENTS: Right Kidney: 9.3 x 4.0 x 3.9 cm Left Kidney: 8.1 x 5.2 x 4.1 cm Right Kidney: Slight hydronephrosis visualized. Left Kidney: Upper lateral pole, anechoic mass 2.0 x 1.8 x 1.9cm Bladder: Non-distended, limited view. Patient could not tolerate full bladder. Multiple surgeries o n bladder per patient. Bilateral Jets seen: No Bladder is decompressed making evaluation of this level suboptimal. Mild right-sided pyelocaliectasis . Left kidney has a partially exophytic thin-walled simple appearing 2.0 cm cyst upper to mid pole le regina. No left-sided hydronephrosis. IMPRESSION: Mild right-sided hydronephrosis now present. Patient has history of prior tiny right monique l calculi on 2019 CT. Consider obstructive uropathy. Stable 2.0 cm simple appearing thin-walled cyst left kidney. No concerning masses on images saved.
== END | disposition home or self-care (01) ==
LOC: RADUSWWP 14:45
PROVIDERS: ATTEND Family Medicine
DX: D49.512 Neoplasm of unspecified behavior of left kidney (principal); N13.30 Unspecified hydronephrosis; N28.1 Cyst of kidney, acquired; Z87.442 Personal history of urinary calculi
CPT/HCPCS: 76770

== ENCOUNTER → 2022-10-25 | Outpatient (CLI) | payer MEDICARE, OTHER ==
--- NOTE | 2022-10-25 15:40 | CT ---
EXAMINATION TYPE: CT abdomen pelvis wo con CT DLP: 228.80 mGycm, Automated exposure control for dose reduction was used. DATE OF EXAM: 10/25/2022 3:22 PM COMPARISON: CT abdomen pelvis most recent from CLINICAL INDICATION:Female, 62 years old with history of N13.30 UNSPECIFIED HYDRONEPHROSIS; lower abd ominal bladder pain. TECHNIQUE: Axial CT of the abdomen and pelvis. Sagittal and coronal reformats were created on a [employer] workstation. Contrast used : none Oral contrast used: without Oral Contrast FINDINGS: LOWER CHEST: Unremarkable ABDOMEN LIVER: Suspected fatty infiltration in segment 4A. GALLBLADDER AND BILE DUCTS: The gallbladder surgically absent. Dilation of the extrahepatic biliary d ilation. PANCREAS: Unremarkable. SPLEEN: Unremarkable. ADRENAL GLANDS: Unremarkable. KIDNEYS AND URETERS: Nonobstructing right 3 mm calculus. No left renal calculi. No evidence hydroneph rosis. PELVIS BLADDER: Unremarkable REPRODUCTIVE: Unremarkable. ABDOMEN & PELVIS STOMACH AND BOWEL: No evidence of bowel obstruction. There is a large amount stool within the sigmoid colon. There is few scattered clonic diverticula present. There is a right inguinal hernia containin g loops of small bowel. No evidence of bowel wall thickening or evidence of obstruction. PERITONEUM/RETROPERITONEUM: No evidence of pneumoperitoneum or free fluid. VASCULATURE: No evidence of aortic aneurysm. Atherosclerosis of the arterial vasculature. MUSCULOSKELETAL: No acute osseous abnormalities LYMPH NODES: No gross evidence for lymphadenopathy. SOFT TISSUE/ABDOMINAL WALL: There is a right inguinal hernia containing loops of small bowel. No evid ence of bowel wall thickening or evidence of obstruction. IMPRESSION: 1. Right inguinal hernia containing loops of small bowel. No evidence of obstruction or strangulatio n. 2. Moderate stool burden throughout the colon. 3. Colonic diverticulosis. 4. Nonobstructing right renal calculus.
== END | disposition home or self-care (01) ==
LOC: RADCTMAIN 14:35
PROVIDERS: ATTEND Urology
DX: N13.30 Unspecified hydronephrosis (principal); K40.90 Unilateral inguinal hernia, without obstruction or gangrene, not specified as recurrent; K57.30 Diverticulosis of large intestine without perforation or abscess without bleeding; N20.0 Calculus of kidney
CPT/HCPCS: 74176

== ENCOUNTER → 2023-01-31 | Outpatient (CLI) | payer MEDICARE, OTHER ==
--- NOTE | 2023-01-31 12:29 | XR ---
EXAMINATION TYPE: XR elbow complete LT DATE OF EXAM: 01/31/2023 12:20 PM INDICATION: Patient age:Female; 62 years old; Reason for study: M25.522 PAIN IN LEFT ELBOW; [facility]. COMPARISON: None TECHNIQUE: The left elbow was examined in AP, lateral, and oblique projections. FINDINGS: No evidence of any acute osseous pathology. No osseous erosions. Small joint effusion. Soft tissue swelling of the posterior elbow. No evidence of joint effusion is present. IMPRESSION: 1. No evidence of acute fracture. 2. Small joint effusion. 3. Soft tissue swelling of the posterior elbow which could represent bursitis.
== END | disposition home or self-care (01) ==
LOC: RADXRMAIN 12:03
PROVIDERS: ATTEND Family Medicine
DX: M25.422 Effusion, left elbow (principal); M25.522 Pain in left elbow

== ENCOUNTER → 2023-01-31 | Outpatient (CLI) | payer MEDICARE, OTHER ==
--- NOTE | 2023-01-31 11:16 | MM ---
Reason for Exam: Clinical finding. Last screening mammogram was performed 10 month(s) ago. Patient History: Menarche at age 9. First Full-Term at age 17. Left ovary removed at age 34. Right ovary removed at age 34. Hysterectomy at age 34. Postmenopausal. Endometrial cancer, age 40. Estrogen for 5 years from age 34 until age 39. Progesterone for 5 years from age 34 until age 39. Sister had breast cancer, age 50. Mother had breast cancer, age 35. Risk Values: Bianca 5 year model risk: 8.2%. NCI Lifetime model risk: 30.4%. Tissue Density: There are scattered fibroglandular densities. Findings: Analyzed By CAD. No new suspicious masses in either breast. No architectural distortion. No suspicious group of microcalcifications within either breast. Overall Assessment: Incomplete: need additional imaging evaluation, BI-RAD 0 Management: Diagnostic Breast Ultrasound of the left breast. A clinical breast exam by your physician is recommended on an annual basis and results should be correlated with mammographic findings. This exam should not preclude additional follow-up of suspicious palpable abnormalities. Results were given to the patient verbally at the time of exam. Electronically signed and approved by: Willie Healy D.O.
--- NOTE | 2023-01-31 11:51 | USB ---
Reason for Exam: Clinical finding. Patient History: Menarche at age 9. First Full-Term at age 17. Left ovary removed at age 34. Right ovary removed at age 34. Hysterectomy at age 34. Postmenopausal. Endometrial cancer, age 40. Estrogen for 5 years from age 34 until age 39. Progesterone for 5 years from age 34 until age 39. Sister had breast cancer, age 50. Mother had breast cancer, age 35. Risk Values: Bianca 5 year model risk: 8.2%. NCI Lifetime model risk: 30.4%. Technique: Method: Targeted. Prior Study Comparison: 02/20/2012 Bilateral Screening Mammogram, [facility]. 03/01/2012 Right Diagnostic Mammogram, [facility]. 03/29/2022 Bilateral MG 3D screening mammo w/cad, [facility]. Findings: The area of palpable concern of the left breast, the axilla of the left breast and the retroareolar of the left breast were scanned. Targeted ultrasound of the left breast demonstrates a hypoechoic mass with posterior acoustic enhancement at 5:00 3 cm from the nipple measuring 2.1 x 1.9 x 1.5 cm. There is some trace internal color flow identified. This is parallel in orientation with predominantly circumscribed margin. This may represent a fibroadenoma versus other etiologies. Additional evaluation of the axilla and nipple was performed. Benign-appearing lymph node in the left axilla. Overall Assessment: Suspicious, BI-RAD 4 Management: Ultrasound Core Biopsy of the left breast. A clinical breast exam by your physician is recommended on an annual basis and results should be correlated with mammographic findings. This exam should not preclude additional follow-up of suspicious palpable abnormalities. Results were given to the patient verbally at the time of exam. Electronically signed and approved by: Willie Healy D.O.
== END | disposition home or self-care (01) ==
LOC: RADMAMWWP 10:51
PROVIDERS: ATTEND Family Medicine
DX: N63.20 Unspecified lump in the left breast, unspecified quadrant (principal); Z78.0 Asymptomatic menopausal state; Z80.3 Family history of malignant neoplasm of breast
CPT/HCPCS: 77066; 76642; G0279; 77062

== ENCOUNTER → 2023-02-14 | Day surgery (SDC) | payer MEDICARE, OTHER ==
--- NOTE | 2023-02-14 14:47 | MM ---
Reason for Exam: Post Procedure Mammogram. Last screening mammogram was performed less than 1 month ago. Patient History: Menarche at age 9. First Full-Term at age 17. Left ovary removed at age 34. Right ovary removed at age 34. Hysterectomy at age 34. Postmenopausal. Endometrial cancer, age 40. Estrogen for 5 years from age 34 until age 39. Progesterone for 5 years from age 34 until age 39. Sister had breast cancer, age 50. Mother had breast cancer, age 35. Risk Values: Bianca 5 year model risk: 8.2%. NCI Lifetime model risk: 30.4%. Tissue Density: Left: There are scattered fibroglandular densities. Overall Assessment: Post procedure mammogram for marker placement Management: Post Mammogram for Jacky Placement of the left breast. Electronically signed and approved by: Petros Beverly DO
--- NOTE | 2023-02-26 09:59 | USB ---
Risk Values: Bianca 5 year model risk: 8.2%. NCI Lifetime model risk: 30.4%. Prior Study Comparison: 03/01/2012 Right Diagnostic Mammogram, [facility]. 03/29/2022 Bilateral MG 3D screening mammo w/cad, [facility]. 01/31/2023 Bilateral MG 3D diag mammo w/cad REA, [facility]. Pathology Description: Location: 10 o'clock. Marker Left Behind. Needle Type: Vacuum Assisted Cores: 2 Skin Nicks: 1 The procedure of ultrasound guided core biopsy was explained to the patient. Benefits, alternatives, and risks were discussed. An informed consent was then obtained. The patient was placed in supine positioning for imaging and for the procedure. The overlying skin was prepped and draped in usual sterile fashion. Lidocaine buffered with bicarbonate was used as anesthetic into the skin and subcutaneous tissue up to area of concern in the left breast. A dionna was made with surgical scalpel. Under ultrasound guidance, a 14-gauge biopsy gun device was used to obtain 2 core samples. Following this, a biopsy clip was left in lesion. The patient tolerated the procedure well without any immediate complication. The patient was kept in the radiology department for short stay after the procedure and then discharged home in stable condition. Postprocedure mammogram: The patient was transferred to mammography for physician ordered post procedure mammogram for clip placement verification. Clip was not identified on mammography. Second Look ultrasound of the lesion did demonstrate biopsy clip in appropriate position. Impression: Successful, uncomplicated ultrasound guided core biopsy of area of concern in the left breast, full pathology results to follow. Pathology Results: Result: High risk, Other. 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 Notes Sections examined show a fairly well-circumscribed neoplasm comprised of a population of uniform, polygonal epithelial cells with abundant eosinophilic granular cytoplasm and small, central nuclei. A panel of immunoperoxidase stains was performed in order to further evaluate the tumor, and examined with appropriate positive controls. The results show the tumor to be immunohistochemically positive for S100, SOX-10, CD68, PASD, and weakly, focally positive for Calretinin. The tumor is immunohistochemically negative for the following markers: SUYAPA, CKAE1/3, CD34, Desmin, and predominantly negative for smooth muscle actin (SMA) with some variable weak, non-specific reactivity. 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 Roof Technician material from this case was also reviewed by Dr. Geovanny De Souza, who agrees with the above diagnosis. Overall Assessment: High risk Management: Surgical Consultation of the left breast. Electronically signed and approved by: Petros Beverly DO
== END ==
LOC: RADUSWWP 12:48
PROVIDERS: ATTEND Surgery
DX: D49.3 Neoplasm of unspecified behavior of breast (principal); Z90.721 Acquired absence of ovaries, unilateral; Z78.0 Asymptomatic menopausal state; Z85.42 Personal history of malignant neoplasm of other parts of uterus; Z80.3 Family history of malignant neoplasm of breast
CPT/HCPCS: 88305; 88313; 88342; 88341; 77065; 19083; A4648

== ENCOUNTER 2023-03-08 11:23 | Day surgery (SDC) | payer MEDICARE, OTHER ==
[~2023-03-08 11:23] MED LIST changes: -HEPARIN SODIUM,PORCINE 5,000 UNIT/ML 1 ML VIAL SQ PRN; +HEPARIN SODIUM,PORCINE/PF 5,000 UNIT/0.5 ML SYRINGE SQ PRN
[2023-03-08] MEDS ORDERED: ALPRAZolam 0.5 MG TAB ONE (12:15)
[2023-03-08] MEDS ORDERED: ALPRAZolam 0.5 MG TAB PO ONE (12:18)
[2023-03-08] MEDS ORDERED: LACTATED RINGERS 1,000 ML IV ONE (12:24)
[2023-03-08] MEDS ORDERED: LIDOCAINE 1% INJ 10MG/ML (20 ML MDV) SQ ONE (12:49)
[2023-03-08] MEDS ORDERED: LIDOCAINE 2% INJ 20 MG/ML (2 ML VIAL) ONE (13:49)
[2023-03-08] MEDS ORDERED: SUCCINYLCHOLINE CHLORIDE 200 MG/10 ML VIAL IV ONE (13:49)
[2023-03-08] MEDS ORDERED: PROPOFOL 10 MG/ML 20 ML VIAL IV ONE (13:49)
[2023-03-08] MEDS ORDERED: fentaNYL (PF) 50 MCG/ML 2 ML AMP ONE (13:49)
[2023-03-08] MEDS ORDERED: GLYCOPYRROLATE 0.2 MG/ML 2 ML VIAL ONE (13:49)
[2023-03-08] MEDS ORDERED: MIDAZOLAM 2 MG/2 ML VIAL ONE (13:49)
[2023-03-08] MEDS ORDERED: CLINDAMYCIN 600 MG/50 ML-D5W 600 MG in DEXTROSE/WATER 1 50ML.BAG IVPB STA (14:20)
[2023-03-08] MEDS ORDERED: BUPIVACAINE (PF) 0.25% 30 ML VIAL SQ ONE ×2 (14:28)
[2023-03-08] MEDS ORDERED: NALOXONE 0.4 MG/ML 1 ML VIAL IV PRN (14:58)
[2023-03-08 15:07] VITALS: TEMP 97.6
--- NOTE | 2023-03-08 15:07 | P.OP ---
Date of Procedure: 03/08/23 Procedure(s) Performed: PREOPERATIVE DIAGNOSIS: Left breast drain was a tumor POSTOPERATIVE DIAGNOSIS: Same PROCEDURE: Left Breast wire localization lumpectomy SURGEON: Connie EBL: Minimal ANESTHESIA: General COMPLICATIONS: None OPERATIVE PROCEDURE: Patient was placed on the operating room table in the supin e position. The patient had a wire entering the breast at around the 5 to 6:00 location directed medially and superiorly. A curvilinear incision was made inferior to the areola. Dissection through the subcutaneous fat and breast tissue took place until we were approaching the wire. The wire was brought out through our incision site. I then performed a lumpectomy around this indurated mass. As we were dissecting it became evident that this appeared to be likely coming from the pectoralis musculature. Dissection around the mass took place using electrocautery. This did appear to be adherent to the muscle and fascia. Palatal mass measuring approximately 2 cm in size. Excisional dissection took place below the pectoralis musculature. Specimen was painted the appropriate 6 colors. The operative site was irrigated with saline. The subcutaneous tissues were closed using 3-0 Vicryl sutures. The skin was closed using a running 4-0 Monocryl stitch. Skin glue was then applied. DISPOSITION: Stable to recovery room
[2023-03-08] MEDS ORDERED: hydrALAZINE HCL 20 MG/ML 1 ML VIAL IVP ONE (15:29)
[2023-03-08 15:57] VITALS: RESP 18
[2023-03-08 16:11] VITALS: BP 169/78; PULSE 89
--- NOTE | 2023-03-15 09:33 | MM ---
Reason for Exam: Post Procedure Mammogram. Last screening mammogram was performed 1 month(s) ago. Patient History: Menarche at age 9. First Full-Term at age 17. Left ovary removed at age 34. Right ovary removed at age 34. Hysterectomy at age 34. Postmenopausal. Endometrial cancer, age 40. Estrogen for 5 years from age 34 until age 39. Progesterone for 5 years from age 34 until age 39. 02/14/2023, High risk US biopsy breast VAD LT on the left side. Sister had breast cancer, age 50. Mother had breast cancer, age 35. Risk Values: Bianca 5 year model risk: 9.6%. NCI Lifetime model risk: 34.7%. Prior Study Comparison: 03/29/2022 Bilateral MG 3D screening mammo w/cad, [facility]. 01/31/2023 Bilateral MG 3D diag mammo w/cad [facility], [facility]. 02/14/2023 Left MG diagnostic mammo LT wo CAD., [facility]. Tissue Density: Left: There are scattered fibroglandular densities. Pathology Description: Location: 5 o'clock. Needle Type: 5 cm [place] Informed consent was obtained and all the patient's questions were answered. The lesion in question was localized sonographically The standard sterile technique was utilized, as well as appropriate local anesthesia with 1% Lidocaine. Localization needle followed by placement of a guidewire was performed under guidance sonographic. Verification images demonstrate appropriate deployment of the guidewire. The patient tolerated the procedure well and left the department in stable condition. Specimen radiograph demonstrates the clip and mass in question to reside within the specimen. IMPRESSION: Successful needle localization and open biopsy left breast with pathology results pending. Pathology Results: Result: Benign, Granular cell tumor. 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 Previous biopsy site. Notes Please refer to the surgical pathology report for the previous core biopsy of the lesion ([id number]) for immunohistochemistry staining confirmation of the diagnosis. Overall Assessment: Benign Assessment: MG diagnostic mammo LT wo CAD. - Left: Benign, BI-RAD 2. Management: Diagnostic Mammogram of the left breast in 6 months. Electronically signed and approved by: Alon Chan M.D. Radiologis
== END 2023-03-08 16:17 | disposition home or self-care (01) ==
LOC: OR 11:23
PROVIDERS: ATTEND Surgery
DX: D24.2 Benign neoplasm of left breast (principal); K40.90 Unilateral inguinal hernia, without obstruction or gangrene, not specified as recurrent; K21.9 Gastro-esophageal reflux disease without esophagitis; J44.9 Chronic obstructive pulmonary disease, unspecified; F17.200 Nicotine dependence, unspecified, uncomplicated; F41.9 Anxiety disorder, unspecified; F32.A Depression, unspecified; Z98.890 Other specified postprocedural states; Z79.899 Other long term (current) drug therapy; Z90.710 Acquired absence of both cervix and uterus
CPT/HCPCS: 19301; 88307; 77065; 76098; 19285; C1819; J2250; J0330; J0360; J1100; J2405; J2001 ×2; J3010; J2704; J1644

== ENCOUNTER 2023-03-09 09:05 | Inpatient (IN) | payer MEDICARE, OTHER ==
[2023-03-09] MEDS ORDERED: HYDROmorphone 0.5 MG/0.5 ML SYRINGE IVP STA ×2 (09:26→10:27)
--- NOTE | 2023-03-09 09:28 | ED ---
General Adult HPI - General Chief complaint: Recheck/Abnormal Lab/Rx Stated complaint: post op comp Time Seen by Provider: 03/09/23 09:10 Source: patient, RN notes reviewed, old records reviewed Mode of arrival: wheelchair Limitations: no limitations - History of Present Illness Initial comments: This is a 62-year-old male who presents emergency department stating that she had a lump removed out of her left breast yesterday and today depressed is extr darian enlarged and causing her quite a bit of pain. Patient states normally it looks like the right side but now it is very large. Patient denies any difficulty breathing. Patient denies any chest pain patient denies any fever chills. Patient only complains of pain in the breast. - Related Data Home Medications Medication Instructions Recorded Confirmed Vilazodone HCl [Viibryd] 20 mg PO DAILY 09/30/16 03/05/23 Albuterol Nebulized [Ventolin 2.5 mg INHALATION RT-QID PRN 10/06/16 03/05/23 Nebulized] PARoxetine [Paxil] 20 mg PO DAILY@1200 10/06/16 03/05/23 Famotidine 40 mg PO BID@1200,2000 09/30/20 03/05/23 HYDROmorphone [Dilaudid] 2 mg PO BID@1200,1800 09/30/20 03/05/23 ALPRAZolam [Xanax] 1 mg PO TID 08/06/21 03/05/23 Albuterol Inhaler [Ventolin Hfa 1 puff INHALATION RT-TID PRN 08/06/21 03/05/23 Inhaler] Budesonide/Formoterol Fumarate 1 puff INHALATION RT-BID PRN 08/06/21 03/05/23 [Symbicort 160-4.5 Mcg Inhaler] Docusate [Colace] 100 mg PO HS 08/06/21 03/05/23 Morphine Sulfate ER [Ms Contin] 60 mg PO BID 08/06/21 03/05/23 Multivitamins, Thera [Multivitamin 1 tab PO DAILY 08/06/21 03/05/23 (formulary)] Allergies Allergy/AdvReac Type Severity Reaction Status Date / Time ampicillin Allergy Unknown Verified 03/09/23 09:10 cephalexin monohydrate Allergy Unknown Verified 03/09/23 09:10 [From Keflex] ciprofloxacin Allergy Nausea & Verified 03/09/23 09:10 Vomiting ibuprofen [From Motrin] Allergy Nausea & Verified 03/09/23 09:10 Vomiting nadolol [From Corgard] Allergy Nausea & Verified 03/09/23 09:10 Vomiting aspirin AdvReac Unknown Swelling Verified 03/09/23 09:10 Review of Systems ROS Statement: Those systems with pertinent positive or pertinent negative responses have been documented in the HPI. ROS Other: All systems not noted in ROS Statement are negative. Past Medical History Past Medical History: Asthma, Cancer, Chest Pain / Angina, COPD, Fibromyalgia, GERD/Reflux, Osteoarthritis (OA), Pneumonia Additional Past Medical History / Comment(s): MURMUR,VULVULAR CA,HIATAL HERNIA,MIGRAINES,DIVERTICULITIS, CHRONIC CONSTIPATION, BACK PAIN, HX OF FX LEFT ANKLE APPROX, FX RIGHT FOOT 2016. KIDNEY STONES. History of Any Multi-Drug Resistant Organisms: None Reported Past Surgical History: Appendectomy, Bladder Surgery, Breast Surgery, Cholecyste ctomy, Hernia Repair, Hysterectomy Additional Past Surgical History / Comment(s): Vulvular cancer (14 SX AT [facility]). Surgical removal of valvular cancer, Past Anesthesia/Blood Transfusion Reactions: No Reported Reaction Additional Past Anesthesia/Blood Transfusion Reaction / Comment(s): no blood tx hx Past Psychological History: Anxiety, Depression Smoking Status: Current every day smoker Past Alcohol Use History: None Reported Past Drug Use History: None Reported - Past Family History Father Family Medical History: Congestive Heart Failure (CHF) Additional Family Medical History / Comment(s): DAD AT AGE 86 FROM CHF Mother Family Medical History: Cancer Additional Family Medical History / Comment(s): MOM AT AGE 40 FROM CANCER THAT METASTASISED, Sister(s) Family Medical History: Cancer Additional Family Medical History / Comment(s): breast General Exam - General Exam Comments Initial Comments: GENERAL: Patient is well-developed and well-nourished. Patient is nontoxic and well- hydrated and is in moderate distress. ENT: Neck is soft and supple. No significant lymphadenopathy is noted. Oropharynx is clear. Moist mucous membranes. EYES: The sclera were anicteric and conjunctiva were pink and moist. Extraocular movements were intact and pupils were equal round and reactive to light. Eyelids were unremarkable. PULMONARY: Unlabored respirations. Good breath sounds bilaterally. No audible rales rhonchi or wheezing was noted. CARDIOVASCULAR: There is a regular rate and rhythm without any murmurs gallops or rubs. P atient's left breast is extremely large and tender there is no areas of erythema SKIN: Skin is clear with no lesions or rashes and otherwise unremarkable. NEUROLOGIC: Patient is alert and oriented x3. Cranial nerves II through XII are grossly intact. Motor and sensory are also intact. Normal speech, volume and content. Symmetrical smile. MUSCULOSKELETAL: Normal extremities with adequate strength and full range of motion. PSYCHIATRIC: Normal psychiatric evaluation. Limitations: no limitations Course Vital Signs 03/09/23 03/09/23 03/09/23 09:06 09:59 10:46 Temperature 97.6 F Pulse Rate 101 H 77 89 Respiratory 22 22 18 Rate Blood Pressure 216/113 218/112 215/125 O2 Sat by Pulse 98 96 98 Oximetry 03/09/23 10:55 Temperature Pulse Rate 106 H Respiratory 20 Rate Blood Pressure 157/106 O2 Sat by Pulse 98 Oximetry Medical Decision Making - Medical Decision Making Was pt. sent in by a medical professional or institution (, PA, CLINICAL TRIALS SYSTEMS ADMINISTRATOR, urgent care, hospital, or longterm...) When possible be specific @ -Dr. Rosales sent the patient in Did you speak to anyone other than the patient for history (EMS, parent, family, police, friend...)? What history was obtained from this source @ -I spoke to Dr. Rosales about the patient prior to arrival Did you review nursing and triage notes (agree or disagree)? Why? @ -I reviewed and agree with nursing and triage notes Were old charts reviewed (outside hosp., previous admission, EMS record, old EKG, old radiological studies, urgent care reports/EKG's, longterm records)? Report findings @ -I reviewed prior lab work and charting on this patient from previous visits Differential Diagnosis (chest pain, altered mental status, abdominal pain women, abdominal pain men, vaginal bleeding, weakness, fever, dyspnea, syncope, headache, dizziness, GI bleed, back pain, seizure, CVA, palpatations, mental health, musculoskeletal)? @ -Postop consultation, hematoma, infection, incisional pain, this is not all inclusive list EKG interpreted by me (3pts min.). @ -As above X-rays interpreted by me (1pt min.). @ -Chest x-ray shows no acute abnormality CT interpreted by me (1pt min.). @ -None done U/S interpreted by me (1pt. min.). @ -None done What testing was considered but not performed or refused? (CT, X-rays, U/S, labs)? Why? @ -None What meds were considered but not given or refused? Why? @ -None Did you discuss the management of the patient with other professionals (professionals i.e. DrShalonda, PA, CLINICAL TRIALS SYSTEMS ADMINISTRATOR, lab, RT, psych nurse, health and social care teacher, franchise manager, teacher, global safety officer, transplant case manager)? Give summary @ -Spoke with Dr. Rosales he was trying to arrange for the patient to come to the OR psychiatric to surgery Was smoking cessation discussed for >3mins.? @ -No Was critical care preformed (if so, how long)? @ -No Were there social determinants of health that impacted care today? How? (Homelessness, low income, unemployed, alcoholism, drug addiction, transportation, low edu. Level, literacy, decrease access to med. care, halfway, rehab)? @ -No Was there de-escalation of care discussed even if they declined (Discuss DNR or withdrawal of care, Hospice)? DNR status @ -No What co-morbidities impacted this encounter? (DM, HTN, Smoking, COPD, CAD, Cancer, CVA, ARF, Chemo, Hep., AIDS, mental health diagnosis, sleep apnea, morbid obesity)? @ -None Was patient admitted / discharged? Hospital course, mention meds given and route, prescriptions, significant lab abnormalities, going to OR and other p ertinent info. @ -Patient had surgery on that breast yesterday and today depressed is much more enlarged and painful I assume that this is a hematoma spoke with Dr. Rosales he was in agreement he will be taking the patient to the OR Undiagnosed new problem with uncertain prognosis? @ -No Drug Therapy requiring intensive monitoring for toxicity (Heparin, Nitro, Insulin, Cardizem)? @ -No Were any procedures done? @ -No Diagnosis/symptom? @ -Hematoma breast Acute, or Chronic, or Acute on Chronic? @ -Acute Uncomplicated (without systemic symptoms) or Complicated (systemic symptoms)? @ -Complicated Side effects of treatment? @ -No Exacerbation, Progression, or Severe Exacerbation? @ -No Poses a threat to life or bodily function? How? (Chest pain, USA, NC, pneumonia, PE, COPD, DKA, ARF, appy, cholecystitis, CVA, Diverticulitis, Homicidal, Suicidal, threat to staff... and all critical care pts) @ -No - Lab Data Result diagrams: 03/09/23 09:53 03/09/23 09:53 Lab Results 03/09/23 03/09/23 Range/Units 09:53 09:53 WBC 17.0 H (3.8-10.6) k/uL RBC 4.22 (3.80-5.40) m/uL Hgb 13.7 (11.4-16.0) gm/dL Hct 39.9 (34.0-46.0) % MCV 94.3 (80.0-100.0) fL MCH 32.3 (25.0-35.0) pg MCHC 34.3 (31.0-37.0) g/dL RDW 12.8 (11.5-15.5) % Plt Count 237 (150-450) k/uL MPV 9.4 Neutrophils % 65 % Lymphocytes % 28 % Monocytes % 5 % Eosinophils % 1 % Basophils % 0 % Neutrophils # 11.0 H (1.3-7.7) k/uL Lymphocytes # 4.7 (1.0-4.8) k/uL Monocytes # 0.9 (0-1.0) k/uL Eosinophils # 0.1 (0-0.7) k/uL Basophils # 0.0 (0-0.2) k/uL Sodium 135 L (137-145) mmol/L Potassium 3.2 L (3.5-5.1) mmol/L Chloride 103 (98-107) mmol/L Carbon Dioxide 23 (22-30) mmol/L Anion Gap 9 mmol/L BUN 17 (7-17) mg/dL Creatinine 1.08 H (0.52-1.04) mg/dL Est GFR (CKD-EPI)AfAm 63 (>60 ml/min/1.73 sqM) Est GFR (CKD-EPI)NonAf 55 (>60 ml/min/1.73 sqM) Glucose 223 H (74-99) mg/dL Calcium 8.7 (8.4-10.2) mg/dL Total Bilirubin 0.7 (0.2-1.3) mg/dL AST 59 H (14-36) U/L ALT 84 H (4-34) U/L Alkaline Phosphatase 182 H (38-126) U/L Total Protein 6.8 (6.3-8.2) g/dL Albumin 4.0 (3.5-5.0) g/dL Disposition Clinical Impression: Breast hematoma, Postoperative complication Disposition: ADMITTED IP TO THIS HOSP Referrals: Matti Montejo MD [Primary Care Provider] - 1-2 days Time of Disposition: 11:03
[2023-03-09 10:07] LABS: Basophils % (A) 0 %; Eosinophils # (A) 0.1 k/uL (0-0.7); Eosinophils % (A) 1 %; HCT 39.9 % (34.0-46.0); HGB 13.7 gm/dL (11.4-16.0); Lymphocytes # (A) 4.7 k/uL (1.0-4.8); Lymphocytes % (A) 28 %; MCH 32.3 pg (25.0-35.0); MCHC 34.3 g/dL (31.0-37.0); MCV 94.3 fL (80.0-100.0); Mean Platelet Volume 9.4; Monocytes # (A) 0.9 k/uL (0-1.0); Monocytes % (A) 5 %; Neutrophils % (A) 65 %; Platelet Count 237 k/uL (150-450); RBC 4.22 m/uL (3.80-5.40); RDW 12.8 % (11.5-15.5)
[2023-03-09 10:16] LABS: ALT 84 U/L (4-34); AST 59 U/L (14-36); African American GFR (CKD) 63 (>60 ml/min/1.73 sqM); Alkaline Phosphatase 182 U/L (38-126); Anion Gap 9 mmol/L; Blood Urea Nitrogen 17 mg/dL (7-17); Calcium 8.7 mg/dL (8.4-10.2); Carbon Dioxide 23 mmol/L (22-30); Chloride 103 mmol/L (98-107); Glucose 223 mg/dL (74-99); Non-African American GFR(CKD) 55 (>60 ml/min/1.73 sqM); Potassium 3.2 mmol/L (3.5-5.1); Sodium 135 mmol/L (137-145); Total Bilirubin 0.7 mg/dL (0.2-1.3); Total Protein 6.8 g/dL (6.3-8.2)
[2023-03-09] MEDS ORDERED: hydrALAZINE HCL 20 MG/ML 1 ML VIAL IVP STA (10:27)
[2023-03-09] MEDS ORDERED: LACTATED RINGERS 1,000 ML IV ONE ×3 (11:13→12:43)
[2023-03-09] MEDS ORDERED: ONDANSETRON 4 MG/2 ML VIAL IVP ONE (11:24)
[2023-03-09] MEDS ORDERED: DEXAMETHASONE SOD PHOSPHATE 4 MG/ML 1 ML VIAL IVP ONE (11:25)
--- NOTE | 2023-03-09 11:37 | XR ---
EXAMINATION TYPE: XR chest 2V DATE OF EXAM: 03/09/2023 COMPARISON: 08/06/2021 INDICATION: Difficulty breathing, chest pain TECHNIQUE: Frontal and lateral views of the chest are obtained. FINDINGS: The heart size is normal. The pulmonary vasculature is normal. No suspicious focal consolidations are evident. No suspicious infiltrates. There is some increased opacity over the left mid and lower lung field. However, lateral view appears unremarkable and no silhouetting the left heart border or diaphragm are evident suggesting this may be related to overlying soft tissues. Correlate with left breast recent surgery. IMPRESSION: 1. No acute pulmonary process. 2. There may be some left breast changes causing some increased opacity over the left lower lung leopoldo trejo. Clinical correlation regarding patient's recent breast recommended.
[2023-03-09] MEDS ORDERED: fentaNYL (PF) 50 MCG/ML 2 ML AMP ONE (11:43)
[2023-03-09] MEDS ORDERED: PHENYLEPHRINE-0.9% NACL SYG 1,000 MCG/10 ML SYRINGE ONE (11:43)
[2023-03-09] MEDS ORDERED: MIDAZOLAM 2 MG/2 ML VIAL ONE (11:43)
[2023-03-09] MEDS ORDERED: LIDOCAINE 2% INJ 20 MG/ML (2 ML VIAL) ONE (11:43)
[2023-03-09] MEDS ORDERED: SUCCINYLCHOLINE CHLORIDE 200 MG/10 ML VIAL IV ONE (11:43)
[2023-03-09] MEDS ORDERED: PROPOFOL 10 MG/ML 20 ML VIAL IV ONE (11:43)
[2023-03-09] MEDS ORDERED: CLINDAMYCIN 600 MG/50 ML-D5W 600 MG in DEXTROSE/WATER 1 50ML.BAG IVPB STA (12:02)
[2023-03-09] MEDS ORDERED: NALOXONE 0.4 MG/ML 1 ML VIAL IV PRN (12:43)
[2023-03-09] MEDS ORDERED: ACETAMINOPHEN TAB 325 MG TAB PO PRN (12:43)
[2023-03-09] MEDS ORDERED: ONDANSETRON 4 MG/2 ML VIAL IVP PRN (12:43)
[2023-03-09] MEDS ORDERED: HYDROmorphone 0.5 MG/0.5 ML SYRINGE IVP PRN (12:43)
--- NOTE | 2023-03-09 12:48 | P.OP ---
Date of Procedure: 03/09/23 Procedure(s) Performed: PREOPERATIVE DIAGNOSIS: Postoperative left breast hematoma POSTOPERATIVE DIAGNOSIS: Same PROCEDURE: Evacuation left breast/chest wall hematoma with drain placement SURGEON: Connie SALAS: See anesthesia records ANESTHESIA: General COMPLICATIONS: None OPERATIVE PROCEDURE: Patient placed in the supine position. Placed under general anesthesia. Left breast prepped and draped sterilely. Previous incision re-incised. Large hematoma evacuated using suction device and manually. The tumor that was removed yesterday actually was thought to be coming from the pectoralis musculature. Our dissection infected placed posterior to the pectoralis muscle. The hematoma partially lifted the pectoralis muscle off of the chest wall. There were a few areas of oozing noted within the muscular layers of the pectoralis but no heavy bleeding was encountered. Bleeding was controlled using either cautery or 3-0 Vicryl ties. Thorough irrigation took place. Again no further bleeding. A drain was brought into the operative site from a inferior lateral stab incision. This was sutured in place using a 3-0 silk stitch. Subcutaneous tissues again closed using 3-0 Vicryl sutures. Skin closed using interrupted 4-0 Monocryl sutures. Sterile dressings applied. DISPOSITION: Stable to recovery room
[2023-03-09] MEDS ORDERED: HYDROmorphone 0.5 MG/0.5 ML SYRINGE IVP ONE (12:53)
[2023-03-09] MEDS: HYDROmorphone 1 MG/ML 1 ML SYRINGE IVP PRN ×3 (14:32→22:48)
[2023-03-09] MEDS ORDERED: SYMBICORT 160-4.5 MCG INHALER INHALATION PRN (14:59)
[2023-03-09] MEDS ORDERED: ALBUTEROL HFA INHALER INHALATION PRN (14:59)
[2023-03-09] MEDS ORDERED: ALBUTEROL NEBULIZED 2.5 MG/3 ML INHALATION PRN (14:59)
[2023-03-09] MEDS: NICOTINE 14MG/24HR PATCH TRANSDERM SCH (16:26)
[2023-03-09] MEDS ORDERED: POTASSIUM CHLORIDE ER 20 MEQ TAB.ER PO STA (17:23)
[2023-03-09] MEDS ORDERED: FAMOTIDINE 20 MG TAB PO SCH ×2 (20:00→21:00)
[2023-03-09] MEDS: LOSARTAN 25 MG TAB PO SCH (20:49)
[2023-03-09] MEDS: ALPRAZolam 0.5 MG TAB PO SCH (20:49)
[2023-03-09] MEDS ORDERED: OXYBUTYNIN XL 5 MG TAB.ER.24 PO SCH (21:00)
[2023-03-09] MEDS ORDERED: DOCUSATE 100 MG CAP PO SCH (21:00)
[2023-03-10] MEDS: HYDROmorphone 1 MG/ML 1 ML SYRINGE IVP PRN ×2 (02:44→06:31)
[2023-03-10 06:54] LABS: Basophils % (A) 0 %; Eosinophils # (A) 0.1 k/uL (0-0.7); Eosinophils % (A) 1 %; HCT 33.1 % (34.0-46.0); HGB 10.8 gm/dL (11.4-16.0); Lymphocytes # (A) 3.3 k/uL (1.0-4.8); Lymphocytes % (A) 35 %; MCH 32.2 pg (25.0-35.0); MCHC 32.6 g/dL (31.0-37.0); MCV 98.8 fL (80.0-100.0); Mean Platelet Volume 9.5; Monocytes # (A) 0.7 k/uL (0-1.0); Monocytes % (A) 8 %; Neutrophils % (A) 54 %; Platelet Count 131 k/uL (150-450); RBC 3.35 m/uL (3.80-5.40); WBC 9.4 k/uL (3.8-10.6)
[2023-03-10 08:02] VITALS: BP 135/73; PULSE 77; RESP 17; TEMP 98.7
[2023-03-10] MEDS: LOSARTAN 25 MG TAB PO SCH (08:49)
[2023-03-10] MEDS: NICOTINE 14MG/24HR PATCH TRANSDERM SCH (08:50)
[2023-03-10] MEDS: ALPRAZolam 0.5 MG TAB PO SCH (08:50)
[2023-03-10] MEDS ORDERED: MULTIVITAMINS, THERA 1 EACH TAB PO SCH (09:00)
[2023-03-10] MEDS ORDERED: NON FORMULARY DRUG (Vilazodone Hcl [Viibryd] 20 MG Tablet) PO SCH (09:00)
--- NOTE | 2023-03-10 09:16 | P.DS ---
Providers Date of admission: 03/09/23 11:07 Expected date of discharge: 03/10/23 Attending physician: Mirza Rosales Consults: 03/09/23 12:43 Consult Physician Routine Consulting Provider: Matti Montejo Consult Reason/Comments: Medical management Do you want consulting provider notified?: Yes Primary care physician: Matti Montejo Hospital Course: Patient doing well today. She was readmitted for a breast hematoma. Patient underwent evacuation of hematoma with drain placement. During well today. No pain. She would like to go home. We'll discharge. Follow-up in office with drain. Plan - Discharge Summary Discharge Rx Participant: No New Discharge Prescriptions: No Action Vilazodone HCl [Viibryd] 20 mg PO DAILY PARoxetine [Paxil] 20 mg PO DAILY@1200 Albuterol Nebulized [Ventolin Nebulized] 2.5 mg INHALATION RT-QID PRN PRN Reason: Shortness Of Breath Famotidine 40 mg PO BID@1200,2000 HYDROmorphone [Dilaudid] 2 mg PO BID@1200,1800 Docusate [Colace] 100 mg PO HS Morphine Sulfate ER [Ms Contin] 60 mg PO BID Losartan [Cozaar] 25 mg PO BID Albuterol Inhaler [Ventolin Hfa Inhaler] 1 puff INHALATION RT-TID PRN PRN Reason: Shortness Of Breath Multivitamins, Thera [Multivitamin (formulary)] 1 tab PO DAILY Budesonide/Formoterol Fumarate [Symbicort 160-4.5 Mcg Inhaler] 1 puff INHALATION RT-BID PRN PRN Reason: Shortness Of Breath Tolterodine ER [Detrol LA] 4 mg PO HS Alendronate Sodium [Fosamax] 70 mg PO [place] ALPRAZolam [Xanax] 0.5 mg PO BID Discharge Medication List Vilazodone HCl [Viibryd] 20 mg PO DAILY 09/30/16 [History] Albuterol Nebulized [Ventolin Nebulized] 2.5 mg INHALATION RT-QID PRN 10/06/16 [History] PARoxetine [Paxil] 20 mg PO DAILY@1200 10/06/16 [History] Famotidine 40 mg PO BID@1200,2000 09/30/20 [History] HYDROmorphone [Dilaudid] 2 mg PO BID@1200,1800 09/30/20 [History] Albuterol Inhaler [Ventolin Hfa Inhaler] 1 puff INHALATION RT-TID PRN 08/06/21 [History] Budesonide/Formoterol Fumarate [Symbicort 160-4.5 Mcg Inhaler] 1 puff INHALATION RT-BID PRN 08/06/21 [History] Docusate [Colace] 100 mg PO HS 08/06/21 [History] Morphine Sulfate ER [Ms Contin] 60 mg PO BID 08/06/21 [History] Multivitamins, Thera [Multivitamin (formulary)] 1 tab PO DAILY 08/06/21 [History] ALPRAZolam [Xanax] 0.5 mg PO BID 03/09/23 [History] Alendronate Sodium [Fosamax] 70 mg PO [place] 03/09/23 [History] Losartan [Cozaar] 25 mg PO BID 03/09/23 [History] Tolterodine ER [Detrol LA] 4 mg PO HS 03/09/23 [History] Follow up Appointment(s)/Referral(s): Matti Montejo MD [Primary Care Provider] - 1-2 days
[2023-03-10] MEDS ORDERED: PARoxetine 20 MG TAB PO SCH (12:00)
--- NOTE | 2023-03-10 12:42 | P.CONS ---
History of Present Illness - Reason for Consult Consult date: 03/10/23 Medical management - History of Present Illness History of present illness the patient is 62-year-old lady who presented to the ER because of left breast discomfort. Patient recently had a lump removed from her left breast and following that she started noticing discomfort. She was also complaining of pain in her left breast. There was no complaint of fever or chills. Patient was admitted to surgery team for evacuation of hematoma REVIEW OF SYSTEMS: CONSTITUTIONAL: No fever, no malaise, no fatigue. HEENT: No recent visual problems or hearing problems. Denied any sore throat. CARDIOVASCULAR: No chest pain, orthopnea, PND, no palpitations, no syncope. PULMONARY: No shortness of breath, no cough, no hemoptysis. GASTROINTESTINAL: No diarrhea, no nausea, no vomiting, no abdominal pain. NEUROLOGICAL: No headaches, no weakness, no numbness. HEMATOLOGICAL: Denies any bleeding or petechiae. GENITOURINARY: Denies any burning micturition, frequency, or urgency. MUSCULOSKELETAL/RHEUMATOLOGICAL: Denies any joint pain, swelling, or any muscle pain. ENDOCRINE: Denies any polyuria or polydipsia. The rest of the 14-point review of systems is negative. PHYSICAL EXAMINATION: GENERAL: The patient is alert and oriented x3, not in any acute distress. Well developed, well nourished. HEENT: Pupils are round and equally reacting to light. EOMI. No scleral icterus. No conjunctival pallor. Normocephalic, atraumatic. No pharyngeal erythema. No thyromegaly. CARDIOVASCULAR: S1 and S2 present. No murmurs, rubs, or gallops. PULMONARY: Chest is clear to auscultation, no wheezing or crackles. ABDOMEN: Soft, nontender, nondistended, normoactive bowel sounds. No palpable organomegaly. MUSCULOSKELETAL: No joint swelling or deformity. EXTREMITIES: No cyanosis, clubbing, or pedal edema. NEUROLOGICAL: Gross neurological examination did not reveal any focal deficits. SKIN: No rashes. Left breast bandage seen, drain in place Assessment and plan Left breast hematoma status post evacuation and drain placement History of COPD History of hypertension History of depression Plan; Monitor vital signs Monitor CBC Continue wound care per surgery Continue pain management per surgery Continue losartan Continue Symbicort and albuterol Continue paroxetine Continue rest of treatment for now Past Medical History Past Medical History: Asthma, Cancer, Chest Pain / Angina, COPD, Fibromyalgia, GERD/Reflux, Osteoarthritis (OA), Pneumonia Additional Past Medical History / Comment(s): MURMUR,VULVULAR CA,HIATAL H ERNIA,MIGRAINES,DIVERTICULITIS, CHRONIC CONSTIPATION, BACK PAIN, HX OF FX LEFT ANKLE APPROX, FX RIGHT FOOT 2016. KIDNEY STONES. History of Any Multi-Drug Resistant Organisms: None Reported Past Surgical History: Appendectomy, Bladder Surgery, Breast Surgery, Cholecystectomy, Hernia Repair, Hysterectomy Additional Past Surgical History / Comment(s): Vulvular cancer (14 SX AT [facility]). Surgical removal of valvular cancer, Left breast lumpectomy/complicated by hematoma and subsequent evacuation of hematoma. Past Anesthesia/Blood Transfusion Reactions: No Reported Reaction Additional Past Anesthesia/Blood Transfusion Reaction / Comm: no blood tx hx Past Psychological History: Anxiety, Depression Smoking Status: Current every day smoker Past Alcohol Use History: None Reported Additional Past Alcohol Use History / Comment(s): STARTED AT AGE 4. SMOKES .5 PPD. Past Drug Use History: None Reported Additional Drug Use History / Comment(s): OCCASIONAL MARIJUANA USE -STATES FOR DEPRESSION AND PAIN. refrain 24 hours prior to procedure - Past Family History Father Family Medical History: Congestive Heart Failure (CHF) Additional Family Medical History / Comment(s): DAD AT AGE 86 FROM CHF Mother Family Medical History: Cancer Additional Family Medical History / Comment(s): MOM AT AGE 40 FROM CANCER THAT METASTASISED, Sister(s) Family Medical History: Cancer Additional Family Medical History / Comment(s): breast Medications and Allergies Home Medications Medication Instructions Recorded Confirmed Type Vilazodone HCl [Viibryd] 20 mg PO DAILY 09/30/16 03/09/23 History Albuterol Nebulized [Ventolin 2.5 mg INHALATION RT-QID PRN 10/06/16 03/09/23 History Nebulized] PARoxetine [Paxil] 20 mg PO DAILY@1200 10/06/16 03/09/23 History Famotidine 40 mg PO BID@1200,2000 09/30/20 03/09/23 History HYDROmorphone [Dilaudid] 2 mg PO BID@1200,1800 09/30/20 03/09/23 History Albuterol Inhaler [Ventolin Hfa 1 puff INHALATION RT-TID PRN 08/06/21 03/09/23 History Inhaler] Budesonide/Formoterol Fumarate 1 puff INHALATION RT-BID PRN 08/06/21 03/09/23 History [Symbicort 160-4.5 Mcg Inhaler] Docusate [Colace] 100 mg PO HS 08/06/21 03/09/23 History Morphine Sulfate ER [Ms Contin] 60 mg PO BID 08/06/21 03/09/23 History Multivitamins, Thera [Multivitamin 1 tab PO DAILY 08/06/21 03/09/23 History (formulary)] ALPRAZolam [Xanax] 0.5 mg PO BID 03/09/23 03/09/23 History Alendronate Sodium [Fosamax] 70 mg PO [place]BY 03/09/23 03/09/23 History Losartan [Cozaar] 25 mg PO BID 03/09/23 03/09/23 History Tolterodine ER [Detrol LA] 4 mg PO HS 03/09/23 03/09/23 History Allergies Allergy/AdvReac Type Severity Reaction Status Date / Time ampicillin Allergy Unknown Verified 03/09/23 11:33 cephalexin monohydrate Allergy Unknown Verified 03/09/23 11:33 [From Keflex] ciprofloxacin Allergy Nausea & Verified 03/09/23 11:33 Vomiting ibuprofen [From Motrin] Allergy Nausea & Verified 03/09/23 11:33 Vomiting nadolol [From Corgard] Allergy Nausea & Verified 03/09/23 11:33 Vomiting aspirin AdvReac Unknown Swelling Verified 03/09/23 11:33 Physical Exam Vitals: Vital Signs Temp Pulse Pulse Pulse Resp BP BP 03/10/23 07:20 98.7 F 77 17 135/73 03/10/23 03:25 99.2 F 82 16 166/82 03/09/23 20:20 99.0 F 82 18 129/80 03/09/23 15:49 85 119/73 03/09/23 15:34 96 03/09/23 15:19 89 03/09/23 15:04 85 127/78 03/09/23 14:49 91 99/68 03/09/23 14:34 96 126/83 03/09/23 14:19 97 163/79 03/09/23 14:05 98.6 F 114 H 18 153/82 03/09/23 13:30 96 14 158/80 03/09/23 13:15 101 H 14 152/84 03/09/23 13:05 105 H 16 169/96 03/09/23 12:55 108 H 16 185/90 03/09/23 12:40 97.8 F 111 H 14 184/85 03/09/23 11:28 89 14 176/94 03/09/23 11:14 97.0 F L 93 16 189/101 03/09/23 10:55 106 H 20 157/106 03/09/23 10:46 89 18 215/125 Pulse Ox 03/10/23 07:20 96 03/10/23 03:25 93 L 03/09/23 20:20 94 L 03/09/23 15:49 95 03/09/23 15:34 88 L 03/09/23 15:19 90 L 03/09/23 15:04 92 L 03/09/23 14:49 95 03/09/23 14:34 96 03/09/23 14:19 90 L 03/09/23 14:05 92 L 03/09/23 13:30 97 03/09/23 13:15 97 03/09/23 13:05 97 03/09/23 12:55 92 L 03/09/23 12:40 100 03/09/23 11:28 94 L 03/09/23 11:14 98 03/09/23 10:55 98 03/09/23 10:46 98 Intake and Output 03/09/23 03/10/23 03/10/23 22:59 06:59 14:59 Output Total 20 30 Balance -20 -30 Output: Drainage 20 30 Left Chest 20 30 Other: Voiding Method Toilet Bedside Commode # Voids 2 3 Results CBC & Chem 7: 03/10/23 06:08 03/09/23 09:53 Labs: Abnormal Lab Results - Last 24 Hours (Table) 03/09/23 03/10/23 Range/Units 09:53 06:08 RBC 3.35 L (3.80-5.40) m/uL Hgb 10.8 L (11.4-16.0) gm/dL Hct 33.1 L (34.0-46.0) % Plt Count 131 L (150-450) k/uL Sodium 135 L (137-145) mmol/L Potassium 3.2 L (3.5-5.1) mmol/L Creatinine 1.08 H (0.52-1.04) mg/dL Glucose 223 H (74-99) mg/dL AST 59 H (14-36) U/L ALT 84 H (4-34) U/L Alkaline Phosphatase 182 H (38-126) U/L
[2023-03-11] MEDS ORDERED: NON FORMULARY DRUG (Alendronate Sodium [Fosamax] 70 MG Tablet) PO SCH (14:59)
--- NOTE | 2023-03-13 13:12 | P.GSHP ---
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 Apparently this morning noticed increased swelling and pain at the operative site. Her daughter contacted me and she was brought to the ER. Spoke with the ER staff this morning. Large hematoma at the operative site was noted. Past Medical History Past Medical History: Asthma, Cancer, Chest Pain / Angina, COPD, Fibromyalgia, GERD/Reflux, Osteoarthritis (OA), Pneumonia Additional Past Medical History / Comment(s): MURMUR,VULVULAR CA,HIATAL HERNIA,MIGRAINES,DIVERTICULITIS, CHRONIC CONSTIPATION, BACK PAIN, HX OF FX LEFT ANKLE APPROX, FX RIGHT FOOT 2016. KIDNEY STONES. History of Any Multi-Drug Resistant Organisms: None Reported Past Surgical History: Appendectomy, Bladder Surgery, Cholecystectomy, Hernia Repair, Hysterectomy Additional Past Surgical History / Comment(s): Vulvular cancer (14 SX AT [facility]). Surgical removal of valvular cancer Past Anesthesia/Blood Transfusion Reactions: No Reported Reaction Additional Past Anesthesia/Blood Transfusion Reaction / Comment(s): no blood tx hx Smoking Status: Current every day smoker - Past Family History Father Family Medical History: Congestive Heart Failure (CHF) Additional Family Medical History / Comment(s): DAD AT AGE 86 FROM CHF Mother Family Medical History: Cancer Additional Family Medical History / Comment(s): MOM AT AGE 40 FROM CANCER THAT METASTASISED, Sister(s) Family Medical History: Cancer Additional Family Medical History / Comment(s): breast Medications and Allergies Home Medications Medication Instructions Recorded Confirmed Type Vilazodone HCl [Viibryd] 20 mg PO DAILY 09/30/16 03/09/23 History Albuterol Nebulized [Ventolin 2.5 mg INHALATION RT-QID PRN 10/06/16 03/09/23 History Nebulized] PARoxetine [Paxil] 20 mg PO DAILY@1200 10/06/16 03/09/23 History Famotidine 40 mg PO BID@1200,2000 09/30/20 03/09/23 History HYDROmorphone [Dilaudid] 2 mg PO BID@1200,1800 09/30/20 03/09/23 History Albuterol Inhaler [Ventolin Hfa 1 puff INHALATION RT-TID PRN 08/06/21 03/09/23 History Inhaler] Budesonide/Formoterol Fumarate 1 puff INHALATION RT-BID PRN 08/06/21 03/09/23 History [Symbicort 160-4.5 Mcg Inhaler] Docusate [Colace] 100 mg PO HS 08/06/21 03/09/23 History Morphine Sulfate ER [Ms Contin] 60 mg PO BID 08/06/21 03/09/23 History Multivitamins, Thera [Multivitamin 1 tab PO DAILY 08/06/21 03/09/23 History (formulary)] ALPRAZolam [Xanax] 0.5 mg PO BID 03/09/23 03/09/23 History Alendronate Sodium [Fosamax] 70 mg PO [place] 03/09/23 03/09/23 History Losartan [Cozaar] 25 mg PO BID 03/09/23 03/09/23 History Tolterodine ER [Detrol LA] 4 mg PO HS 03/09/23 03/09/23 History Allergies Allergy/AdvReac Type Severity Reaction Status Date / Time ampicillin Allergy Unknown Verified 03/09/23 11:33 cephalexin monohydrate Allergy Unknown Verified 03/09/23 11:33 [From Keflex] ciprofloxacin Allergy Nausea & Verified 03/09/23 11:33 Vomiting ibuprofen [From Motrin] Allergy Nausea & Verified 03/09/23 11:33 Vomiting nadolol [From Corgard] Allergy Nausea & Verified 03/09/23 11:33 Vomiting aspirin AdvReac Unknown Swelling Verified 03/09/23 11:33 Surgical - Exam Physical exam: General: Well-developed, well-nourished HEENT: Normocephalic, sclerae nonicteric Abdomen: Nontender, nondistended Extremities: No edema Neuro: Alert and oriented Left breast incision with significant swelling and tenderness Results - Labs 03/10/23 06:08 03/09/23 09:53 Assessment and Plan (1) Breast hematoma Narrative/Plan: 62-year-old female with hematoma left breast 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 Options reviewed with the patient and her daughter. We'll proceed with evacuation of hematoma. We'll likely leave drain. This tumor was within the pectoralis musculature down to the chest wall. This is likely the etiology for her postoperative bleeding. Will plan observation overnight postoperatively. Status: Inactive Code(s): N64.89 - OTHER SPECIFIED DISORDERS OF BREAST SNOMED Code(s): 945412143
== END 2023-03-10 11:24 | disposition home or self-care (01) | DRG 909 ==
LOC: EC 09:05 → 4SSUR 11:07
PROVIDERS: ADMIT Surgery; ATTEND Surgery
PROC: 0W9800Z Drainage of Chest Wall with Drainage Device, Open Approach (ICD-10-PCS; 2023-03-09)
PROC: 0KC Muscles, Extirpation (ICD-10-PCS; principal; 2023-03-09 16:05)
DX: M96.841 Postprocedural hematoma of a musculoskeletal structure following other procedure (principal); D49.3 Neoplasm of unspecified behavior of breast; F17.210 Nicotine dependence, cigarettes, uncomplicated; J44.9 Chronic obstructive pulmonary disease, unspecified; I10 Essential (primary) hypertension; F32.A Depression, unspecified; N64.4 Mastodynia; S20.02XA Contusion of left breast, initial encounter; M79.7 Fibromyalgia; Y84.8 Other medical procedures as the cause of abnormal reaction of the patient, or of later complication, without mention of misadventure at the time of the procedure; Z80.9 Family history of malignant neoplasm, unspecified; Z79.899 Other long term (current) drug therapy; Z79.891 Long term (current) use of opiate analgesic; Z79.51 Long term (current) use of inhaled steroids; Z79.83 Long term (current) use of bisphosphonates; Z88.0 Allergy status to penicillin; Z88.1 Allergy status to other antibiotic agents; Z88.6 Allergy status to analgesic agent; Z88.8 Allergy status to other drugs, medicaments and biological substances
CPT/HCPCS: 36415; 71046; 80053; 85025; 96374; 96375; 96376; 99285

== ENCOUNTER → 2023-04-20 | Outpatient (CLI) | payer MEDICARE, OTHER ==
--- NOTE | 2023-04-20 08:53 | CTL ---
EXAMINATION TYPE: CT Low Dose Lung DATE OF EXAM ORDERED: 04/20/2023 HISTORY: 63-year-old female R91.8, current smoker with 50 pack-year history. Lung cancer screening CT DLP: 48.[address] CTDI: 1.4 mGy Automated exposure control for dose reduction was used. SCREENING VISIT: Six-month follow-up COMPARISON: 08/31/2022 TECHNIQUE: Low dose computed tomography scan was performed through the chest with coronal and sagitta l reconstructions. CT DIAGNOSTIC QUALITY: Satisfactory FINDINGS: Heart is normal size without pericardial effusion. Aorta normal caliber with conventional arch vessel branching anatomy. Lower right paratracheal node measures 8 mm, unchanged. No thoracic lymphadenopathy by CT size criter ia. Mild diffuse bronchial wall thickening. Moderate emphysematous change. Minimal biapical pleural paren chymal scarring. Calcified granuloma medial left upper lobe. Scattered strandy scarring or atelectasi s remain demonstrated. 5 mm right middle lobe pulmonary nodule, axial image 172 not clearly seen previously. A 9 mm pulmonary nodule at the right midlung along the major fissure, axial image 162 is unchanged. 6 mm medial left basilar pulmonary nodule, axial image 230 is unchanged. Some focal groundglass change anteromedial right upper to midlung, axial image 158 appears increased. Correlate with symptoms to exclude early infectious/inflammatory focus. No pleural effusion. Visualized upper abdomen shows the 2.0 cm cortical cyst lateral left kidney and suggestion of some in trahepatic biliary ductal dilatation which appears chronic for the patient. Correlate with alkaline p hosphatase and bilirubin levels. No osseous destructive process. IMPRESSION: 1. Lung rads Category 3 (probably benign, 1-2% chance of malignancy). A 5 mm right middle lobe pulmon ryan nodule, axial image 172 not clearly seen previously. A couple additional pulmonary nodules remain unchanged. 2. Some increasing focal groundglass anteromedial right upper to midlung. Correlate with symptoms to exclude an early infectious/inflammatory focus. This can also be reassessed at follow-up. 3. COPD with moderate emphysema. Recommend smoking cessation. CT LUNG RAD AND CT CHEST RECOMMENDATION: Lung-Rad 3 Probably Benign: 6 month follow-up LDCT. S Modifier (other clinically significant findings): None
== END | disposition home or self-care (01) ==
LOC: RADCTMAIN 06:18
PROVIDERS: ATTEND Family Medicine
DX: Z12.2 Encounter for screening for malignant neoplasm of respiratory organs (principal); J43.9 Emphysema, unspecified; R91.1 Solitary pulmonary nodule; F17.210 Nicotine dependence, cigarettes, uncomplicated
CPT/HCPCS: 71271

== ENCOUNTER 2024-04-11 15:01 | Emergency (ER) | payer MEDICARE, OTHER ==
[2024-04-11 15:22] VITALS: TEMP 98.1
--- NOTE | 2024-04-11 16:03 | XR ---
EXAMINATION TYPE: XR chest 2V DATE OF EXAM: 04/11/2024 COMPARISON: 03/09/2023 HISTORY: Shortness of breath TECHNIQUE: Frontal and lateral views of the chest are obtained. FINDINGS: Scattered senescent parenchymal changes noted. Hyperinflation compatible with COPD. No evidence for infiltrate. No evidence for atelectasis. Heart size is stable. Mediastinal structures are stable and grossly unremarkable. No evidence for hilar prominence. Degenerative changes dorsal spine. IMPRESSION: 1. No evidence for acute pulmonary disease.
--- NOTE | 2024-04-11 16:41 | ED ---
SOB HPI - General Chief Complaint: Shortness of Breath Stated Complaint: BHARATH Time Seen by Provider: 04/11/24 15:20 Source: patient, RN notes reviewed Mode of arrival: ambulatory Limitations: no limitations - History of Present Illness Initial Comments: This is a 64-year-old female with a past medical history of COPD presents emergency department chief complaint of worsening productive cough, shortness of breath and chills. Patient had appointment with her primary care provider this afternoon where she was instructed to report to the emergency department for further evaluation. Patient states that she has been feeling "under the weather" over the past few weeks. She is attempted symptomatic treatment at home with Tylenol, Motrin, [id number] cold and flu medication with minimal relief. She endorses fevers, chills, worsening productive cough. Denies daily steroid use or oxygen use. - Related Data Home Medications Medication Instructions Recorded Confirmed Vilazodone HCl [Viibryd] 20 mg PO DAILY 09/30/16 03/09/23 Albuterol Nebulized [Ventolin 2.5 mg INHALATION RT-QID PRN 10/06/16 03/09/23 Nebulized] PARoxetine [Paxil] 20 mg PO DAILY@1200 10/06/16 03/09/23 Famotidine 40 mg PO BID@1200,2000 09/30/20 03/09/23 HYDROmorphone [Dilaudid] 2 mg PO BID@1200,1800 09/30/20 03/09/23 Albuterol Inhaler [Ventolin Hfa 1 puff INHALATION RT-TID PRN 08/06/21 03/09/23 Inhaler] Budesonide/Formoterol Fumarate 1 puff INHALATION RT-BID PRN 08/06/21 03/09/23 [Symbicort 160-4.5 Mcg Inhaler] Docusate [Colace] 100 mg PO HS 08/06/21 03/09/23 Morphine Sulfate ER [Ms Contin] 60 mg PO BID 08/06/21 03/09/23 Multivitamins, Thera [Multivitamin 1 tab PO DAILY 08/06/21 03/09/23 (formulary)] ALPRAZolam [Xanax] 0.5 mg PO BID 03/09/23 03/09/23 Alendronate Sodium [Fosamax] 70 mg PO [place]BY 03/09/23 03/09/23 Losartan [Cozaar] 25 mg PO BID 03/09/23 03/09/23 Tolterodine ER [Detrol LA] 4 mg PO HS 03/09/23 03/09/23 Previous Rx's Medication Instructions Recorded predniSONE 50 mg PO DAILY #5 tab 04/11/24 Allergies Allergy/AdvReac Type Severity Reaction Status Date / Time ampicillin Allergy Unknown Verified 04/11/24 15:22 cephalexin monohydrate Allergy Unknown Verified 04/11/24 15:22 [From Keflex] ciprofloxacin Allergy Nausea & Verified 04/11/24 15:22 Vomiting ibuprofen [From Motrin] Allergy Nausea & Verified 04/11/24 15:22 Vomiting nadolol [From Corgard] Allergy Nausea & Verified 04/11/24 15:22 Vomiting aspirin AdvReac Unknown Swelling Verified 04/11/24 15:22 Review of Systems ROS Statement: Those systems with pertinent positive or pertinent negative responses have been documented in the HPI. ROS Other: All systems not noted in ROS Statement are negative. Past Medical History Past Medical History: Asthma, Cancer, Chest Pain / Angina, COPD, Fibromyalgia, G ERD/Reflux, Osteoarthritis (OA), Pneumonia Additional Past Medical History / Comment(s): MURMUR,VULVULAR CA,HIATAL HERNIA,MIGRAINES,DIVERTICULITIS, CHRONIC CONSTIPATION, BACK PAIN, HX OF FX LEFT ANKLE APPROX, FX RIGHT FOOT 2016. KIDNEY STONES. History of Any Multi-Drug Resistant Organisms: None Reported Past Surgical History: Appendectomy, Bladder Surgery, Cholecystectomy, Hernia Repair, Hysterectomy Additional Past Surgical History / Comment(s): Vulvular cancer (14 SX AT [facility]). Surgical removal of valvular cancer Past Anesthesia/Blood Transfusion Reactions: No Reported Reaction Additional Past Anesthesia/Blood Transfusion Reaction / Comment(s): no blood tx hx Past Psychological History: Anxiety, Depression Smoking Status: Current every day smoker Past Alcohol Use History: None Reported Past Drug Use History: Marijuana - Past Family History Father Family Medical History: Congestive Heart Failure (CHF) Additional Family Medical History / Comment(s): DAD AT AGE 86 FROM CHF Mother Family Medical History: Cancer Additional Family Medical History / Comment(s): MOM AT AGE 40 FROM CANCER THAT METASTASISED, Sister(s) Family Medical History: Cancer Additional Family Medical History / Comment(s): breast General Exam Limitations: no limitations General appearance: alert, in no apparent distress Head exam: Present: atraumatic, normocephalic, normal inspection ENT exam: Present: normal exam, mucous membranes moist Neck exam: Present: normal inspection. Absent: tenderness, meningismus, lymphadenopathy Respiratory exam: Present: wheezes, rhonchi (diffuse), decreased breath sounds (diffuse). Absent: normal lung sounds bilaterally, rales, stridor Cardiovascular Exam: Present: regular rate, normal rhythm, normal heart sounds. Absent: systolic murmur, diastolic murmur, rubs, gallop, clicks GI/Abdominal exam: Present: soft, normal bowel sounds. Absent: distended, tenderness, guarding, rebound, rigid Extremities exam: Present: normal inspection, full ROM, normal capillary refill. Absent: tenderness, pedal edema, joint swelling, calf tenderness Back exam: Present: normal inspection Neurological exam: Present: alert, oriented X3, CN II-XII intact Psychiatric exam: Present: normal affect, normal mood Skin exam: Present: warm, dry, intact, normal color. Absent: rash Course Vital Signs 04/11/24 04/11/24 15:17 18:19 Temperature 98.1 F Pulse Rate 80 89 Respiratory 18 20 Rate Blood Pressure 108/68 177/76 O2 Sat by Pulse 100 94 L Oximetry Medical Decision Making - Medical Decision Making Was pt. sent in by a medical professional or institution? @ -No Did you speak to anyone other than the patient for history? @ -EMS, parent, family, police, friend? Did you review nursing and triage notes? @ -Yes, and I agree, it is accurate with regards to the patient's symptoms. Were old charts reviewed? @ -No Differential Diagnosis? @ -Chest pain, altered mental status abdominal pain women, abdominal pain men, vaginal bleeding, weakness, fever, dyspnea, syncope, headache, dizziness, GI bleed, back pain, seizure EKG interpreted by me (3pts min.)? @ -EKG interpreted by me demonstrating the following: completed at 1639: sinus rhtythem, ventiruclar rate 62, [place] interval 158, QTc 414, no acute signs of ischemia. X-rays interpreted by me (1pt min.)? @ -Chest x-ray no acute process. CT interpreted by me (1pt min.)? @ -None U/S interpreted by me (1pt. min.)? @ -None What testing was considered but not performed? (CT, X-rays, U/S, labs)? Why? @CT, X-rays, U/S, labs? Why? What meds were considered but not given? Why? @ -None Did you discuss the management of the patient with other professionals? @ -i psoke to the patient's PCP, Dr. Montejo, in regard to the patient's presentation and labs and chest x-ray. Physician is comfortable with stable discharged home and completion of steroids and antibiotics. Did you reconcile home meds? @ -No Was smoking cessation discussed for >3mins.? @ -No Was critical care preformed (if so, how long)? @ -No Were there social determinants of health that impacted care today? How? (Homelessness, low income, unemployed, alcoholism, drug addiction, transportation, low edu. Level, literacy, decrease access to med. care, care home, rehab)? @ -No Was there de-escalation of care discussed even if they declined? (Discuss DNR or withdrawal of care, Hospice)? @ -No What co-morbidities impacted this encounter? (DM, HTN, Smoking, COPD, CAD, Cancer, CVA, Hep., AIDS, mental health diagnosis, sleep apnea, morbid obesity)? @ -DM, HTN, Smoking, COPD, CAD, Cancer, CVA, Hep., AIDS, mental health diagnosis, sleep apnea, morbid obesity? Was patient admitted / discharged? @ -discharge. 64-year-old female with worsening productive cough, fevers and chills. On examination patient's vitals are stable upon arrival. Pulmonary examination remarkable for diffuse wheezing, rales, decreased breath sounds. She will be evaluated via chest x-ray and labs. CBC, CMP, coagulation profile within normal limits. Troponin nonelevated at 0.012. Chest x-ray nonconcerning for acute process. I spoke with the patient's primary care provider who is comfortable with the patient be discharged home with oral steroids and antibiotics. Patient has been provided with a prescription for steroids and antibiotics per primary care provider therefore deferred sending prescription. All questions answered at bedside and strict return parameters have been discussed with the patient she is verbalized understanding. Recommend the patient follows up with her primary care provider next week for further evaluation. Case discussed with Dr. Hebrew Undiagnosed new problem with uncertain prognosis? @ -None Drug Therapy requiring intensive monitoring for toxicity (Heparin, Nitro, Insulin, Cardizem)? @ -None Were any procedures done? @ -None Diagnosis/symptom? @ -COPD exacerbation Acute, or Chronic, or Acute on Chronic? @ -Acute on chronic Uncomplicated (without systemic symptoms) or Complicated (systemic symptoms)? @ -uncomplicated Side effects of treatment? @ -None Exacerbation, Progression, or Severe Exacerbation] @ -Not applicable Poses a threat to life or bodily function? @ -No - Lab Data Result diagrams: 04/11/24 16:59 04/11/24 16:59 Lab Results 04/11/24 04/11/24 04/11/24 Range/Units 16:59 16:59 16:59 WBC 6.9 (3.8-10.6) k/uL RBC 4.38 (3.80-5.40) m/uL Hgb 13.8 (11.4-16.0) gm/dL Hct 42.9 (34.0-46.0) % MCV 97.9 (80.0-100.0) fL MCH 31.5 (25.0-35.0) pg MCHC 32.2 (31.0-37.0) g/dL RDW 13.1 (11.5-15.5) % Plt Count 212 (150-450) k/uL MPV 8.7 Neutrophils % 60 % Lymphocytes % 29 % Monocytes % 6 % Eosinophils % 3 % Basophils % 1 % Neutrophils # 4.2 (1.3-7.7) k/uL Lymphocytes # 2.0 (1.0-4.8) k/uL Monocytes # 0.4 (0-1.0) k/uL Eosinophils # 0.2 (0-0.7) k/uL Basophils # 0.0 (0-0.2) k/uL PT 10.8 (10.0-12.5) sec INR 1.0 (<1.2) APTT 25.6 (22.0-30.0) sec Sodium 139 (137-145) mmol/L Potassium 4.3 (3.5-5.1) mmol/L Chloride 108 H (98-107) mmol/L Carbon Dioxide 23 (22-30) mmol/L Anion Gap 8 mmol/L BUN 11 (7-17) mg/dL Creatinine 1.13 H (0.52-1.04) mg/dL Est GFR (CKD-EPI)AfAm 59 (>60 ml/min/1.73 sqM) Est GFR (CKD-EPI)NonAf 51 (>60 ml/min/1.73 sqM) Glucose 113 H (74-99) mg/dL Calcium 9.5 (8.4-10.2) mg/dL Magnesium 1.8 (1.6-2.3) mg/dL Total Bilirubin 0.5 (0.2-1.3) mg/dL AST 36 (14-36) U/L ALT 25 (4-34) U/L Alkaline Phosphatase 93 (38-126) U/L Troponin I (0.000-0.034) ng/mL Total Protein 7.2 (6.3-8.2) g/dL Albumin 4.3 (3.5-5.0) g/dL 04/11/24 Range/Units 16:59 WBC (3.8-10.6) k/uL RBC (3.80-5.40) m/uL Hgb (11.4-16.0) gm/dL Hct (34.0-46.0) % MCV (80.0-100.0) fL MCH (25.0-35.0) pg MCHC (31.0-37.0) g/dL RDW (11.5-15.5) % Plt Count (150-450) k/uL MPV Neutrophils % % Lymphocytes % % Monocytes % % Eosinophils % % Basophils % % Neutrophils # (1.3-7.7) k/uL Lymphocytes # (1.0-4.8) k/uL Monocytes # (0-1.0) k/uL Eosinophils # (0-0.7) k/uL Basophils # (0-0.2) k/uL PT (10.0-12.5) sec INR (<1.2) APTT (22.0-30.0) sec Sodium (137-145) mmol/L Potassium (3.5-5.1) mmol/L Chloride (98-107) mmol/L Carbon Dioxide (22-30) mmol/L Anion Gap mmol/L BUN (7-17) mg/dL Creatinine (0.52-1.04) mg/dL Est GFR (CKD-EPI)AfAm (>60 ml/min/1.73 sqM) Est GFR (CKD-EPI)NonAf (>60 ml/min/1.73 sqM) Glucose (74-99) mg/dL Calcium (8.4-10.2) mg/dL Magnesium (1.6-2.3) mg/dL Total Bilirubin (0.2-1.3) mg/dL AST (14-36) U/L ALT (4-34) U/L Alkaline Phosphatase (38-126) U/L Troponin I <0.012 (0.000-0.034) ng/mL Total Protein (6.3-8.2) g/dL Albumin (3.5-5.0) g/dL Disposition Clinical Impression: COPD with exacerbation Disposition: HOME SELF-CARE Condition: Good Instructions (If sedation given, give patient instructions): COPD (Chronic Obstructive Pulmonary Disease) (DC) Additional Instructions: Return to the emergency department if your symptoms worsen or do not improve. Complete full course of steroids and antibiotic as prescribed by your primary care provider. Recommend he follow-up with your primary care provider next week for further evaluation. Prescriptions: predniSONE 50 mg PO DAILY #5 tab Is patient prescribed a controlled substance at d/c from ED?: No Referrals: Matti Montejo MD [Primary Care Provider] - 1-2 days Time of Disposition: 18:08
[2024-04-11 17:20] LABS: Basophils % (A) 1 %; Eosinophils # (A) 0.2 k/uL (0-0.7); Eosinophils % (A) 3 %; HCT 42.9 % (34.0-46.0); HGB 13.8 gm/dL (11.4-16.0); Lymphocytes % (A) 29 %; MCH 31.5 pg (25.0-35.0); MCHC 32.2 g/dL (31.0-37.0); MCV 97.9 fL (80.0-100.0); Mean Platelet Volume 8.7; Monocytes # (A) 0.4 k/uL (0-1.0); Monocytes % (A) 6 %; Neutrophils # (A) 4.2 k/uL (1.3-7.7); Neutrophils % (A) 60 %; Platelet Count 212 k/uL (150-450); RBC 4.38 m/uL (3.80-5.40); RDW 13.1 % (11.5-15.5); WBC 6.9 k/uL (3.8-10.6)
[2024-04-11 17:34] LABS: ALT 25 U/L (4-34); AST 36 U/L (14-36); African American GFR (CKD) 59 (>60 ml/min/1.73 sqM); Albumin 4.3 g/dL (3.5-5.0); Alkaline Phosphatase 93 U/L (38-126); Anion Gap 8 mmol/L; Blood Urea Nitrogen 11 mg/dL (7-17); Calcium 9.5 mg/dL (8.4-10.2); Carbon Dioxide 23 mmol/L (22-30); Chloride 108 mmol/L (98-107); Glucose 113 mg/dL (74-99); Magnesium 1.8 mg/dL (1.6-2.3); Non-African American GFR(CKD) 51 (>60 ml/min/1.73 sqM); Potassium 4.3 mmol/L (3.5-5.1); Sodium 139 mmol/L (137-145); Total Bilirubin 0.5 mg/dL (0.2-1.3); Total Protein 7.2 g/dL (6.3-8.2)
[2024-04-11 17:37] LABS: Partial Thromboplastin Time 25.6 sec (22.0-30.0); Prothrombin Time 10.8 sec (10.0-12.5)
[2024-04-11 18:20] VITALS: BP 177/76; PULSE 89; RESP 20
== END 2024-04-11 18:20 | disposition home or self-care (01) ==
LOC: EC 15:01
DX: J44.1 Chronic obstructive pulmonary disease with (acute) exacerbation (principal); F17.200 Nicotine dependence, unspecified, uncomplicated; F12.90 Cannabis use, unspecified, uncomplicated; Z88.6 Allergy status to analgesic agent; Z88.1 Allergy status to other antibiotic agents; Z88.8 Allergy status to other drugs, medicaments and biological substances
CPT/HCPCS: 36415; 71046; 80053; 83735; 84484; 85025; 85610; 85730; 93005; 99285

== ENCOUNTER → 2024-06-04 | Outpatient (CLI) | payer MEDICARE, OTHER ==
--- NOTE | 2024-06-04 15:23 | CTL ---
EXAMINATION TYPE: CT Low Dose Lung DATE OF EXAM: 06/04/2024 3:02 PM CLINICAL INDICATION: Female, 64 years old with history of Z12.2 LUNG CA SCREEN F17.210 CURRENT SMOKER ; Lung CA screen. Nicotine dependency of 1ppd x60 years. , history of tobacco use. COMPARISON: 04/20/2023. TECHNIQUE: Multiple axial non-contrast scans were obtained from approximately the lung apices through the upper abdomen. Coronal and sagittal reformatted images were obtained. Low dose technique was uti lized. CT DLP: 56 mGycm, Automated exposure control for dose reduction was used. CT Contrast: Contrast used: None Oral contrast used: None FINDINGS: ======== Lack of intravenous contrast and low dose technique limits the evaluation of the vascular and soft ti ssue structures. LUNGS: No evidence of pulmonary fibrosis. No evidence of focal consolidation, pneumothorax or pleural effusion. Centrilobular emphysema changes. Paraseptal emphysema changes also present. Nodules: RUL: None. RML: None. RLL: None. DONTRELL: Calcified granuloma series 4 image 53, 2 mm parenchymal abnormality possibly early nodule se monalisa 4 image 148 LLL: Calcified granuloma series 4 image 242 AIRWAY: Patent and unremarkable. HEART: Size within normal limits. MEDIASTINUM: No gross evidence of adenopathy. VASCULATURE: No aortic aneurysm. MUSCULOSKELETAL: No acute osseous abnormalities SOFT TISSUES/LYMPH NODES: Unremarkable. LOWER NECK: No significant findings. UPPER ABDOMEN: No significant findings. IMPRESSION: 1. No clinically significant pulmonary nodules. Area of concern on the prior in the medial aspect of the right middle lobe has resolved. No new or enlarging pulmonary nodules 2. Moderate emphysema. CT LUNG RAD AND CT CHEST RECOMMENDATION: Lung-Rad 2 Benign Appearance or Behavior: Continue annual sc reening with LDCT in 12 months. S Modifier (other clinically significant findings): None Recommend smoking cessation (if current smoker), or continuation of smoking cessation (if prior smoke r). Annual screening for lung cancer with low-dose computed tomography is recommended in adults ages 55 to 77 years who have a 30 pack-year smoking history and currently smoke or have quit within the pa st 15 years. Screening should be discontinued once a person has not smoked for 15 years or develops a health problem that substantially limits life expectancy or the ability or willingness to have curat carla lung surgery. Lung rads 2021 [email or web address]
== END | disposition home or self-care (01) ==
LOC: RADCTMAIN 14:31
PROVIDERS: ATTEND Family Medicine
DX: Z12.2 Encounter for screening for malignant neoplasm of respiratory organs (principal); J43.9 Emphysema, unspecified; F17.210 Nicotine dependence, cigarettes, uncomplicated
CPT/HCPCS: 71271

== ENCOUNTER → 2024-06-30 | Outpatient (CLI) | payer MEDICARE, OTHER ==
[2024-06-30 14:31] VITALS: BP 135/82; PULSE 86; RESP 17; TEMP 99.5
--- NOTE | 2024-06-30 15:08 | P.PAINPG ---
PQRS Measure Charge Sheet Comment: HISTORY OF PRESENT ILLNESS: A 64 yr old female w daughter at side as a referral from Dr Montejo presents today w severe and chronic lumbosacral pain secondary to radiculopathy, spondylosis and facet arthropathy without myelopathy, BL Sacroiliitis for evaluation. Pt states pain level is provoked at 9 /10 in intensity, constant, localized in the lumbosacrao spine, predominantly axial, sharp in character w occasional shooting pain towards the LEs. Pain is provoked by over activity. Pain is alleviated by chiropractic treatments semi monthly x 13 yrs which she is currently in, heat, medications (Dilaudid 2mg #90, MSER 60mg #60, Tyl), topical BioFreeze, repositioning and rest . PMH: OA, Asthma, Vulvar CA, Angina, COPD, Fibromyalgia, GERD , Hiatal Hernia, Nephrolithiasis, MDD/ Anxiety PSH: L Ankle Fracture, Vulvar CA Resection x14 at [facility], L Breast Lumpectomy, Appendectomy, Bladder Surgery, Breast Surgery, Cholecystectomy, Hernia Repair, Hysterectomy SH: Daily tobacco use, No ETOH abuse, Occ Cannabis use FH: Fa- CHF, age 85. MO- CA, age 39. Sis- Breast CA. All: See list Meds: See list REVIEW OF ORGAN SYSTEMS: CONSTITUTIONAL: No fevers or chills. No recent weight loss. NEUROLOGICAL: + numbness and tingling along the distal extremities. No seizure disorders or headaches. MUSCULOSKELETAL: + pain PSYCHIATRIC: Denies current depression or suicidal thoug hts. Physical Examinations : Constitutional : Cooperative , not in acute distress . Neurologic : Cranial nerve II to XII intact. No focal neurological deficits. Psychiatric : alert & oriented x 3. Matching mood & appropriate affect. Judgment & insight intact. Musculoskeletal : Cervical Spine Motor strength in the deltoid and biceps: Normal right side. Normal Left side Motor strength biceps and the wrist extensors: Normal right side . Normal left side Motor strength in the triceps muscle: Normal right side. Normal left side Deep tendon reflexes: Normal at the biceps. Normal at Brachioradialis. Normal at triceps Vertebral body tenderness to deep palpation over Cervical facet loading test: positive bilaterally Spurling test: positive bilaterally Neck distraction test: positive bilaterally Magno sign: positive bilaterally Lumbar spine Motor strength lower extremities ,thigh and legs 5/5 Right side , 5/5 Left side Deep tendon reflexes : Normal Knee Jerk. Normal Ankle Jerk Vertebral body tenderness over L4 August Test positive BL L4-L5 Lumbar facet Loading Test: positive Right / positive Left Range of motion of the lumbar spine Flexion 30 degrees, extension 10 degrees Straight Leg Raise test: Left/ Right positive at degrees Phylicia test: positive right / positive left. Severe tenderness over the Sacroiliac joint on the Right / Left sides Gaenslen test: positive bilaterally Seated flexion test: positive bilaterally. Sacral spine : Severe tenderness over the Sacroiliac joint: right side / left side Range of motion: Flexion of the lumbar spine <60 degrees Range of motion: Extension of the lumbar spine <20 degrees Gaenslen's Test positive BL Phylicia test: positive right side / left side Thigh Thrust Test BL positive Sacral Thrust Test Imaging: MRI non contrast lumbar spine from 07/11/22 reviewed Assessment/ Plan : Lumbar radiculopathy, BL Sacroiliitis Recommendation of BL SI injection #1. Risks, benefits of procedure discussed and patient verbalized understanding. Admits to anti- coagulant use or medical history of diabetes. Protocol for discontinuation/ continuation of medications esther procedure discussed. All questions answered. I have spent greater than 30 minutes on patient care today. Dr Klein was available by phone for the evaluation of this patient. The time was used to review the medical records including relevant urine studies and Prescription history (MAPs), review of the available imaging, evaluation and examination of the patient, coordination of care with the medical staff and if applicable referring physicians, as well as creation of the medical record PQRS Narrative: Smoking Status Current every day smoker Home Medications: Ambulatory Orders Vilazodone HCl [Viibryd] 20 mg PO DAILY 09/30/16 Albuterol Nebulized [Ventolin Nebulized] 2.5 mg INHALATION RT-QID PRN 10/06/16 PARoxetine [Paxil] 20 mg PO DAILY@1200 10/06/16 Famotidine 40 mg PO BID@1200,2000 09/30/20 HYDROmorphone [Dilaudid] 2 mg PO BID@1200,1800 09/30/20 Albuterol Inhaler [Ventolin Hfa Inhaler] 1 puff INHALATION RT-TID PRN 08/06/21 Budesonide/Formoterol Fumarate [Symbicort 160-4.5 Mcg Inhaler] 1 puff INHALATION RT-BID PRN 08/06/21 Docusate [Colace] 100 mg PO HS 08/06/21 Morphine Sulfate ER [Ms Contin] 60 mg PO BID 08/06/21 Multivitamins, Thera [Multivitamin (formulary)] 1 tab PO DAILY 08/06/21 ALPRAZolam [Xanax] 0.5 mg PO BID 03/09/23 Alendronate Sodium [Fosamax] 70 mg PO [place]BY 03/09/23 Losartan [Cozaar] 25 mg PO BID 03/09/23 Tolterodine ER [Detrol LA] 4 mg PO HS 03/09/23 predniSONE 50 mg PO DAILY #5 tab 04/11/24 Controlled Substance Measures - Controlled Substance Measures Is patient prescribed a controlled substance at discharge?: No
== END | disposition home or self-care (01) ==
LOC: PNWHC3 13:46
PROVIDERS: ATTEND Specialist
DX: M46.1 Sacroiliitis, not elsewhere classified (principal); M54.16 Radiculopathy, lumbar region; F17.200 Nicotine dependence, unspecified, uncomplicated; Z88.1 Allergy status to other antibiotic agents; Z88.6 Allergy status to analgesic agent; Z88.8 Allergy status to other drugs, medicaments and biological substances
CPT/HCPCS: 99202

== ENCOUNTER → 2024-07-09 | Outpatient (CLI) | payer MEDICARE, OTHER ==
[2024-07-09 12:58] LABS: African American GFR (CKD) 52 (>60 ml/min/1.73 sqM); Blood Urea Nitrogen 17 mg/dL (7-17); Non-African American GFR(CKD) 45 (>60 ml/min/1.73 sqM)
--- NOTE | 2024-07-09 16:19 | CT ---
EXAMINATION TYPE: CT abdomen pelvis w con CT DLP: 342.4 mGycm, Automated exposure control for dose reduction was used. DATE OF EXAM: 07/09/2024 2:45 PM COMPARISON: CT abdomen pelvis 10/25/2022, 10/02/2016, 12/14/2015 CLINICAL INDICATION:Female, 64 years old with history of K57.32 DIVERTICULA; diverticulitis TECHNIQUE: Standard CT of the abdomen and pelvis following the administration of 100 cc of Isovue 3 00 IV contrast material and oral contrast. Coronal and sagittal reformats were performed. FINDINGS: LOWER CHEST: Centrilobular emphysematous changes. No focal consolidation. Scarring within the right m iddle lobe. Left lung base pleural calcifications redemonstrated. Likely relate to prior asbestosis e xposure. ABDOMEN LIVER: Unremarkable GALLBLADDER AND BILE DUCTS: Gallbladder is surgically absent with mild intrahepatic and extra hepatic biliary dilatation likely physiologic and a postcholecystectomy change. Similar to prior exam. PANCREAS: Unremarkable. SPLEEN: Unremarkable. ADRENAL GLANDS: Unremarkable. KIDNEYS AND URETERS: No evidence of hydronephrosis . Nonobstructive right lower pole 5 mm calculus. A trophy of the left kidney. Bilateral renal cysts with largest within the left kidney measuring 1.6 cm . Largest simple cyst within the right kidney measures 1 cm. There is a 1.8 cm right upper pole corti nikkie hypodense lesion not consistent with a simple cyst (series 7, image 53). Contrast is demonstrated within the right collecting system on the delayed phase. No contrast visualized within the left shoaib ecting system at this time. PELVIS BLADDER: Incompletely distended but grossly unremarkable. REPRODUCTIVE: The uterus is surgically absent. ABDOMEN & PELVIS STOMACH AND BOWEL: Stomach and duodenum are unremarkable. Moderate proximal colon stool burden. Enter ic contrast reaches the ascending colon. No focal bowel wall thickening or surrounding inflammatory c hanges. The appendix is not identified however no significant inflammatory changes within the right l ower quadrant. Scattered distal colonic diverticulosis without evidence for acute diverticulitis. No evidence of bowel obstruction. PERITONEUM: No evidence of pneumoperitoneum or free fluid. VASCULATURE: Stable infrarenal fusiform abdominal aortic aneurysm measuring 3.1 x 2.7 cm. Moderate am ount of atherosclerotic calcification of the aorta and its branches. Pelvic phleboliths. MUSCULOSKELETAL: No acute osseous abnormalities LYMPH NODES: No evidence for lymphadenopathy. SOFT TISSUE/ABDOMINAL WALL: Right inguinal hernia containing nonobstructed small bowel. No wall thick ening or surrounding inflammatory changes. IMPRESSION: 1. No acute abdominal/pelvic process. 2. Colonic diverticulosis without evidence of acute diverticulitis. 3. Right inguinal hernia containing nonobstructed small bowel again. 4. Stable infrarenal abdominal aortic aneurysm measuring up to 3.1 cm. 5. Nonobstructive right renal calculus. Similar atrophy of the left kidney with bilateral renal cyst s. Right renal 1.8 cm lesion not consistent with a simple cyst. May represent a hemorrhagic/proteinac eous cyst however malignancy is not excluded. Further evaluation with CT or MR abdomen with IV contra st (renal mass protocol) is recommended. [facility], , 07/09/2024 4:17 PM
== END ==
LOC: RADCTMAIN 12:20
PROVIDERS: ATTEND Surgery
CPT/HCPCS: 36415; 74177; 82565; 84520

== ENCOUNTER 2024-07-25 12:07 | Day surgery (SDC) | payer MEDICARE, OTHER ==
[~2024-07-25 12:07] MED LIST changes: -ACETAMINOPHEN TAB 500 MG TAB PO PRN; -DEXAMETHASONE SOD PHOSPHATE 4 MG/ML 1 ML VIAL IV ONE; -HEPARIN SODIUM,PORCINE/PF 5,000 UNIT/0.5 ML SYRINGE SQ PRN; -LACTATED RINGERS 1,000 ML IV SCH; +MIDAZOLAM 2 MG/2 ML VIAL IV PRN; -ONDANSETRON 4 MG/2 ML VIAL IVP ONE; -Pre Op ABX Message 1 EACH MISC MISCELLANE ONE
[2024-07-25] MEDS: IV FLUID CONTINUATION 1,000 ML IV ONE (12:20)
[2024-07-25 12:47] VITALS: RESP 16
[2024-07-25] MEDS: ONDANSETRON 4 MG/2 ML VIAL IVP ONE (12:57)
[2024-07-25] MEDS: ACETAMINOPHEN TAB 500 MG TAB PO PRN (12:57)
[2024-07-25] MEDS: HEPARIN SODIUM,PORCINE 5,000 UNIT/ML 1 ML VIAL SQ PRN (12:58)
[2024-07-25] MEDS: DEXAMETHASONE SOD PHOSPHATE 4 MG/ML 1 ML VIAL IV ONE (12:58)
[2024-07-25] MEDS: LACTATED RINGERS 1,000 ML IV SCH (12:58)
[2024-07-25] MEDS ORDERED: CLINDAMYCIN 600 MG/50 ML-D5W 600 MG in DEXTROSE/WATER 1 50ML.BAG IVPB STA (13:08)
--- NOTE | 2024-07-25 13:34 | P.HPADDEND ---
H&P Addendum H&P Addendum Date: 07/25/24 Refer to recent history and physical. Patient's CAT scan was reviewed with the patient by phone. Patient has on CAT scan a right groin hernia. This likely is a femoral hernia. Initially the patient stated her right groin hernia was never repaired. She was reexamined in preop today. She does have a scar there from a previous inguinal hernia repair. She and I discussed the options by phone. Given the patient's history of previous pelvic malignancy and questionable history of radiation we decided to proceed with an open repair. Again this is most likely representing a femoral hernia. Will proceed with open repair right femoral hernia with possible mesh at this time. Risks of bleeding, infection, recurrence, bladder and bowel injury, numbness, nerve injury were discussed with the patient. The patient understands and wishes to proceed.
[2024-07-25] MEDS ORDERED: MIDAZOLAM 2 MG/2 ML VIAL ONE (13:59)
[2024-07-25] MEDS ORDERED: fentaNYL (PF) 50 MCG/ML 2 ML AMP ONE (13:59)
[2024-07-25] MEDS ORDERED: NEOSTIGMINE 1 MG/ML 10 ML VIAL ONE (13:59)
[2024-07-25] MEDS ORDERED: LIDOCAINE 1% INJ 10MG/ML (20 ML MDV) ONE (13:59)
[2024-07-25] MEDS ORDERED: PROPOFOL 10 MG/ML 20 ML VIAL IV ONE (13:59)
[2024-07-25] MEDS ORDERED: ROCURONIUM 10 MG/ML (5 ML VIAL) IV ONE (13:59)
[2024-07-25] MEDS ORDERED: SUCCINYLCHOLINE CHLORIDE 200 MG/10 ML VIAL IV ONE (13:59)
[2024-07-25] MEDS ORDERED: HYDROmorphone (PF) 1 MG/ML ONE (13:59)
[2024-07-25] MEDS ORDERED: ALBUTEROL HFA INHALER INHALATION ONE (13:59)
[2024-07-25] MEDS ORDERED: GLYCOPYRROLATE 0.2 MG/ML 2 ML VIAL ONE (13:59)
[2024-07-25] MEDS: BUPIVACAINE (PF) 0.25% 30 ML VIAL SQ ONE ×3 (14:01→15:02)
[2024-07-25] MEDS: D5W IV ONE (14:04)
[2024-07-25] MEDS: CLINDAMYCIN IV ONE (14:04)
[2024-07-25] MEDS: DEXTROSE 5% IV ONE (14:04)
[2024-07-25] MEDS: WATER IV ONE (14:04)
[2024-07-25] MEDS: LACTATED RINGERS 1,000 ML IV ONE (14:38)
--- NOTE | 2024-07-25 15:30 | P.OP ---
Date of Procedure: 07/25/24 Procedure(s) Performed: PREOPERATIVE DIAGNOSIS: Right femoral hernia POSTOPERATIVE DIAGNOSIS: Recurrent right femoral hernia PROCEDURE: Open repair recurrent right femoral hernia SURGEON: Dr. Rosales ANESTHESIA: General OPERATIVE PROCEDURE DETAILS: Patient placed on the operative table in supine position per the patient was placed under general anesthesia. Right groin prepped and draped sterilely. The patient had a previous scar there. The previous scar was reincised. Dissection through the subcutaneous fat took place use electrocautery. The external bleak was visualized. The patient had evidence of previous Prolene suture used to close the external oblique. Dissection along the external oblique to the folding edge of the inguinal ligament took place and medially we were able to visualize a bulge there consistent with a femoral hernia. As I carefully dissected the femoral hernia contents away from the surrounding structures I could visualize that there was evidence of scarring from previous repair here as well. The femoral hernia was carefully dissected away from the right femoral vein. Unfortunately the small intestine was making up the hernia sac itself. Medially this was adherent to what felt by palpation to represent a small piece of mesh. This was able to be mobilized away from the mesh enough that it could be reduced back into the preperitoneal space. I could not mobilize this completely as the small bowel was densely adherent here and I was concerned about iatrogenic injury if we kept dissecting there. I was concerned about placing any additional mesh given the presence of the small bowel there. Instead the inguinal agreement was sutured down to the pectineal ligament using interrupted 0 Ethibond sutures. This closed the defect nicely. Should be noted that the defect was quite large in size measuring approximately 2 to 2.5 cm in maximum diameter prior to closure. The area was then irrigated. The area was then localized using Marcaine solution. Surgicel powder was utilized. The subcutaneous layers were closed using 3-0 Vicryl sutures. Skin closed using a running 4-0 Monocryl stitch. Skin glue and sterile dressings applied. TYPE OF MESH USED: None PREOPERATIVE DISCUSSION ON SMOKING CESSASTION: Yes PREOPERATIVE DISCUSSION ON MORBID OBESITY: Yes PREOPERATIVE DISCUSSION ON APPROPRIATE USE OF NARCOTIC USE: Yes PREOPERATIVE EDUCATION: Multi Modal, Smoking Cessation and Weight Loss with BMI over 35. DISPOSITION: Stable to recovery room
[2024-07-25 15:32] VITALS: TEMP 97.2
[2024-07-25 16:13] VITALS: BP 137/74; PULSE 62
[2024-07-25] MEDS ORDERED: ACETAMINOPHEN TAB 325 MG TAB PO SCH (18:00)
[2024-07-25] MEDS ORDERED: IBUPROFEN 600 MG TAB PO SCH (21:00)
== END 2024-07-25 16:30 | disposition home or self-care (01) ==
LOC: OR 12:07
PROVIDERS: ATTEND Surgery
DX: K41.90 Unilateral femoral hernia, without obstruction or gangrene, not specified as recurrent (principal); I10 Essential (primary) hypertension; J44.9 Chronic obstructive pulmonary disease, unspecified; K21.9 Gastro-esophageal reflux disease without esophagitis; F17.210 Nicotine dependence, cigarettes, uncomplicated; F32.A Depression, unspecified; F41.9 Anxiety disorder, unspecified; M79.7 Fibromyalgia; Z79.02 Long term (current) use of antithrombotics/antiplatelets; Z79.899 Other long term (current) drug therapy; Z79.1 Long term (current) use of non-steroidal anti-inflammatories (NSAID); Z79.82 Long term (current) use of aspirin; Z88.1 Allergy status to other antibiotic agents; Z88.6 Allergy status to analgesic agent; Z88.0 Allergy status to penicillin
CPT/HCPCS: 49555; J1644; J2405; J0737; J0665

== ENCOUNTER 2024-08-15 07:50 | Day surgery (SDC) | payer MEDICARE, OTHER ==
[2024-08-15] MEDS ORDERED: LACTATED RINGERS 1,000 ML IV SCH (08:01)
[2024-08-15 08:07] VITALS: TEMP 98.5
[2024-08-15] MEDS ORDERED: IOPAMIDOL M300 15ML VIAL ONE (09:04)
[2024-08-15] MEDS ORDERED: methylPREDNISolone ACETATE 80 MG/ML 1 ML VIAL ONE (09:04)
[2024-08-15] MEDS ORDERED: ROPIVACAINE 5MG/ML 20ML VIAL ONE (09:04)
--- NOTE | 2024-08-15 09:33 | FL ---
Fluoroscopy History: BI SI Inj BI SI injection DR. andersen fluoro time- 27sec [id number] [facility], , 08/15/2024 9:31 AM
[2024-08-15 09:36] VITALS: RESP 18
[2024-08-15 09:52] VITALS: BP 155/84; PULSE 79
--- NOTE | 2024-08-15 10:35 | P.PCN ---
Description of Procedure: Preprocedure diagnosis. Sacroiliac joint arthropathy. Postprocedure diagnosis. As above. Procedure done. Injection of the radio contrast material into bilateral sacroiliac joint, sacroiliac joint arthrogram, interpretation of arthrogram. Bilateral sacroiliac joint injection with local anesthetics and steroid under fluoroscopic guidance. Anesthesia. Local anesthetic infiltration. Continuous EKG, pulse ox, blood pressure, and verbal communication was maintained with the patient in OR. Blood loss. Minimal. Indication. Sacroiliac joint arthropathy. Discussed the procedure, alternatives, complications which may include infection,bleeding, nerve damage, aggravation of pain which could be permanent. Patient understands and questions were answered. Procedure note. After getting consent patient in OR in prone position. Back prepped with chlorhexidine and draped in sterile manner. After injecting 10 mL of 1% lidocaine subcutaneously, a 22-gauge spinal needle was introduced under tunnel vision of the fluoroscope in the lower and posterior one third of right sacroiliac joint. After needle position confirmation by AP and crosstable lateral view, 1 mL of Isovue 200 contrast was injected. Contrast was noted to be into the sacroiliac joint. After repeat negative aspiration, 2.5 mL solution was injected which consists of 1.5 ml of 0.5% Ropivacaine mixed with 1 mL of 40 mg Depo-Medrol. In exactly same way left sacroiliac joint was injected with same amount of solution. After the procedure needles were taken out. Bandage applied. Disposition. Patient tolerated the procedure well. No complication. Patient was discharged home in stable condition.
== END 2024-08-15 09:53 | disposition home or self-care (01) ==
LOC: ORPAIN 07:50
PROVIDERS: ATTEND Pain Medicine Interventional Pain Medicine
DX: M46.1 Sacroiliitis, not elsewhere classified (principal); Z88.0 Allergy status to penicillin; Z88.6 Allergy status to analgesic agent; Z88.1 Allergy status to other antibiotic agents
CPT/HCPCS: 27096; Q9967; J2795; J1010

== ENCOUNTER → 2024-10-13 | Outpatient (CLI) | payer MEDICARE, OTHER ==
[2024-10-13 07:55] VITALS: BP 144/89; PULSE 93; RESP 16; TEMP 97.1
--- NOTE | 2024-10-14 07:34 | P.PN ---
Progress Note - Text Patient has come for follow-up visit following bilateral sacroiliac joint injectionX1. Got more than 60% improvement of her pain. Patient has also shooting pain from back up to her feet bilaterally, left side worse than right. Physical Examinations : -Constitutiona : Cooperative , not in acute distress . -HEENT : nech : supple , no Lymphadenopathy , normal thyroid size . : eyes : no ptosis , no icterus, no photophobia . - neurologic : Cranial nerve II to XII intact , no focal neurological deffecit . -psychatric : alert , oriented X 3 , appropriate affect , intact judgment and insight . -Lymphatic : no Lymphadenopathy . - musculoskeltal : Lumber spine moter stegnth lower extremities ,thigh and legs 5/5 Right side , 5/5 Left side deep tendon reflexes : normal Knee Jerk , normal ankle Jerk Range of motion of the lumbar spine Flexion 30 degrees, extension 10 degrees strait leg raising test = positive L side Fabere test= positive Right , and positive LT . Sever tenderness over the Sacroiliac joint on the Right , and Left sides Gaenslen test= positive right ,and positive left . Seated flexion test= positive right ,and positive Left . Sacroiliac compression test= positive bilaterally Assessment and plan= chronic low back pain secondary to bilateral sacroiliac joint arthropathy, lumbar degenerative disc disease , lumbar spondylosis with lumbar facet arthropathy . Will schedule bilateral sacroiliac joint injection with local anesthetics and steroid under fluoroscopic guidance. In future, patient will benefit from lumbar epidural steroid injection for her radicular pain. Diagnoses, prognosis, treatment options, including but not limited to physical therapy, medication management, interventional therapies, and surgery, were discussed with the patient All the questions answered The narcotic consent was signed and patient agreed and understood the side effects and complications of opioid treatment. Patient signed the narcotic agreement, and was orally counseled, not to overuse, not to abuse, not to Divert , not tp sell pain medication, and to take it as prescribed only, Patient was counseled not to drive or operate heavy equipment while using narcotic medication, and advised not to use alcohol or any Illicit drugs while using the narcotis. understanding that lack of compliance with any of the above instructions, will likely to cause discharge from, the pain service, not to renew his narcotic prescriptions MAPS Reviwed and it was apropriate . Medication managements= patient will be given prescription refills for . I spent extensive time with the patient and review of her records. Medications seem to be offering good relief. There is no signs of any misuse or diversion. I have directed her to her neurologist for further evaluation, none of these issues or new and I believe she has had extensive workup regarding these issues. I do also believe that some of these issues are related to her experiences with her son and likely due to her own anxiety regarding medical problems. Michelle espinosaunately his pain medications offer her some benefit and are unlikely to offer long-term relief but in the meantime do offer some benefit so we'll continue those medications. We will prescribe these medications for 2 months time. I discussed with the patient that these medications need to be used as prescribed as misuse of medication can cause significant dysfunction and possibly . I have spent 35 minutes on patient care today. The time was used to review the medical records including relevant urine studies and Prescription history (MAPs), review of the available imaging, evaluation and examination of the patient, coordination of care with the medical staff and if applicable referring physicians, as well as creation of the medical record. Maps were checked and appropriate, opioid start talking form is on file and updated, urine drug screens of been appropriate and have been reviewed. ,
== END ==
LOC: PNWHC3 07:39
PROVIDERS: ATTEND Pain Medicine Interventional Pain Medicine
DX: M47.816 Spondylosis without myelopathy or radiculopathy, lumbar region (principal); M46.1 Sacroiliitis, not elsewhere classified; M51.360 Other intervertebral disc degeneration, lumbar region with discogenic back pain only; M53.3 Sacrococcygeal disorders, not elsewhere classified; G89.29 Other chronic pain; F17.210 Nicotine dependence, cigarettes, uncomplicated; Z88.1 Allergy status to other antibiotic agents; Z88.6 Allergy status to analgesic agent; Z91.048 Other nonmedicinal substance allergy status; Z88.8 Allergy status to other drugs, medicaments and biological substances
CPT/HCPCS: 99211

== ENCOUNTER 2025-03-18 09:18 | Day surgery (SDC) | payer MEDICARE, OTHER ==
[2025-03-17 13:43] VITALS: BMI 19.8
--- NOTE | 2025-03-18 09:07 | P.GSHP ---
History of Present Illness H&P Date: 03/18/25 CHIEF COMPLAINT: Dysphagia and colon screen HISTORY OF PRESENT ILLNESS: The patient is a 65-year-old female who presents with dysphagia, gastroesophageal reflux disease and need for colon screen. Upper and lower endoscopy were offered for further evaluation and management. PAST MEDICAL HISTORY: Please see list. PAST SURGICAL HISTORY: Please see list. MEDICATIONS: Please see list. ALLERGIES: Please see list. SOCIAL HISTORY: No illicit drug use FAMILY HISTORY: No reports of Crohn disease or ulcerative colitis. REVIEW OF ORGAN SYSTEMS: CONSTITUTIONAL: No reports of fevers or chills. GI: Denies any blood in stools or constipation. PHYSICAL EXAM: VITAL SIGNS: Stable GENERAL: Well-developed pleasant in no acute distress. HEENT: No scleral icterus. Extraocular movements grossly intact. Moist buccal mucosa. NECK: Supple without lymphadenopathy. CHEST: Unlabored respirations. Equal bilateral excursions. CARDIOVASCULAR: Regular rate and rhythm. Distal 2+ pulses. ABDOMEN: Soft, nondistended. MUSCULOSKELETAL: No clubbing, cyanosis, or edema. ASSESSMENT: 1. Dysphagia and gastroesophageal reflux disease 2. Colon screen. PLAN: 1. Recommend proceeding with an upper and lower endoscopy Past Medical History Past Medical History: Asthma, Cancer, COPD, Fibromyalgia, GERD/Reflux, Hypertension, Osteoarthritis (OA), Pneumonia Additional Past Medical History / Comment(s): MURMUR,VULVULAR CA,HIATAL HERNIA,MIGRAINES,DIVERTICULITIS, CHRONIC CONSTIPATION, BACK PAIN, HX OF FX LEFT ANKLE , FX RIGHT FOOT. KIDNEY STONES. hx chest pain R/t anxiety. wears brief - urinary incont. "Ulcer in stomach." History of Any Multi-Drug Resistant Organisms: None Reported Past Surgical History: Appendectomy, Bladder Surgery, Cholecystectomy, Hernia Repair, Hysterectomy Additional Past Surgical History / Comment(s): Vulvular cancer (14 SX AT [facility]). Surgical removal of vulvular cancer, egd/colonoscopy Past Anesthesia/Blood Transfusion Reactions: No Reported Reaction Additional Past Anesthesia/Blood Transfusion Reaction / Comment(s): no blood tx hx to date Smoking Status: Current every day smoker - Past Family History Father Family Medical History: Congestive Heart Failure (CHF) Additional Family Medical History / Comment(s): DAD AT AGE 86 FROM CHF Mother Family Medical History: Cancer Additional Family Medical History / Comment(s): MOM AT AGE 40 FROM CANCER THAT METASTASISED, Sister(s) Family Medical History: Cancer Additional Family Medical History / Comment(s): breast Medications and Allergies Home Medications Medication Instructions Recorded Confirmed Type Albuterol Nebulized [Ventolin 2.5 mg INHALATION RT-QID PRN 10/06/16 03/17/25 History Nebulized] Famotidine 40 mg PO BID@1200,2000 09/30/20 03/17/25 History HYDROmorphone [Dilaudid] 2 mg PO TID 09/30/20 03/17/25 History Albuterol Inhaler [Ventolin Hfa 1 puff INHALATION RT-TID PRN 08/06/21 03/17/25 History Inhaler] Budesonide/Formoterol Fumarate 1 puff INHALATION DAILY PRN 08/06/21 03/17/25 History [Symbicort 160-4.5 Mcg Inhaler] Docusate [Colace] 100 mg PO HS 08/06/21 03/17/25 History Morphine Sulfate ER [Ms Contin] 60 mg PO BID 08/06/21 03/17/25 History Multivitamins, Thera [Multivitamin 1 tab PO DAILY 08/06/21 03/17/25 History (formulary)] ALPRAZolam [Xanax] 0.25 mg PO QID 03/09/23 03/17/25 History Alendronate Sodium [Fosamax] 70 mg PO [place]BY 03/09/23 03/17/25 History Losartan [Cozaar] 100 mg PO HS 03/09/23 03/17/25 History Tolterodine ER [Detrol LA] 4 mg PO HS 03/09/23 03/17/25 History DULoxetine HCL [Cymbalta] 60 mg PO DAILY 07/17/24 03/17/25 History amLODIPine [Norvasc] 10 mg PO DAILY 07/17/24 03/17/25 History Vitamin D 1 dose PO QAM 03/17/25 03/17/25 History Allergies Allergy/AdvReac Type Severity Reaction Status Date / Time ampicillin Allergy Rash/Hives Verified 03/17/25 13:26 cephalexin monohydrate Allergy Rash/Hives Verified 03/17/25 13:26 [From Keflex] ciprofloxacin Allergy Nausea & Verified 03/17/25 13:26 Vomiting ibuprofen [From Motrin] Allergy Nausea & Verified 03/17/25 13:26 Vomiting nadolol [From [facility]] Allergy Nausea & Verified 03/17/25 13:26 Vomiting aspirin AdvReac Unknown Swelling Verified 03/17/25 13:26 Steroids Allergy Rash/Hives Uncoded 03/17/25 13:26
[2025-03-18] MEDS: IV FLUID CONTINUATION 1,000 ML IV ONE (09:44)
[2025-03-18 10:06] VITALS: TEMP 98.7
[2025-03-18] MEDS: LACTATED RINGERS 1,000 ML IV SCH (10:12)
[2025-03-18] MEDS ORDERED: PROPOFOL 10 MG/ML 20 ML VIAL IV ONE (10:59)
--- NOTE | 2025-03-18 11:25 | P.PCN ---
Date of Procedure: 03/18/25 Description of Procedure: PREOPERATIVE DIAGNOSIS: Dysphagia. Gastritis POSTOPERATIVE DIAGNOSIS: Dysphagia. Presbyesophagus Esophageal stricture Diaphragmatic hiatal hernia Acute gastritis with bleeding Acute gastric ulcer OPERATION: Esophagogastroduodenoscopy rigid Citizen Of The [place] dilator 54 Fr SURGEON: Le Rain MD ANESTHESIA: MAC. INDICATIONS: The patient is a 54-year-old female who presents with dysphagia. Upper endoscopy was offered for further diagnostic evaluation and treatment. DESCRIPTION: The patient was brought into the endoscopy suite and laid in the left lateral decubitus position. An Olympus gastroscope was carefully passed along the posterior oropharynx. Upon entry into the proximal esophagus, a mild stricture was identified consistent with hypertensive upper esophageal sphincter. No erosion were found along the distal esophagus or ulcerations. The stomach was entered. The scope was passed to the second portion and third portion of the duodenum was unremarkable. Retroflexion of the scope confirmed Hill grade 2 lower esophageal valve without recurrent diaphragmatic hiatal hernia. A guidewire was placed through the scope into the stomach. The scope was removed. A 54-Lithuanian rigid dilator was placed to 45 cm from the incisors. The dilator was left in place between 2-3 minutes. The dilator and guidewire were removed. The scope was reentered along the proximal esophagus whereby the stricture had resolved of the upper esophagus. No full-thickness injury was found along the mucosa. The stomach was desufflated. The patient tolerated the procedure well. FINDINGS: Squamocolumnar junction 40 cm from the incisors. Diaphragmatic hiatus at 43 cm. Diaphragmatic hiatal hernia 3 cm Hill grade 2 lower esophageal valve. LA grade B erosive esophagitis. Acute gastritis with bleeding throughout stomach Acute gastric ulcer x 2, 2 mm antrum Tertiary contractions consistent with presbyesophagus Hypertensive upper esophageal sphincter dilated to 54 Lithuanian RECOMMENDATIONS: Repeat upper endoscopy 3 months, May 2025
--- NOTE | 2025-03-18 11:36 | P.PCN ---
Date of Procedure: 03/18/25 Description of Procedure: PREOPERATIVE DIAGNOSIS: Abnormal stool study Chronic constipation, previous poor prep POSTOPERATIVE DIAGNOSIS: Poor prep with solid stool Constipation OPERATION: Colonoscopy to sigmoid colon, aborted due to poor prep SURGEON: Le Rain MD. ANESTHESIA: MAC. INDICATIONS: The patient is a 65-year-old female who presents with prior attempted colonoscopy poor prep for colon screening. Benefits and risks were described and informed consent was obtained. DESCRIPTION OF PROCEDURE: The patient had undergone bowel prep, [place]. The patient had been brought into the endoscopy room and laid in the left lateral decubitus position. After adequate intravenous sedation, the rectum was examined with 2% lidocaine jelly. External hemorrhoids were encountered. The rectal tone was within normal limits. No lesions were palpated in the rectal vault. An Olympus colonoscope was inserted where solid stool was obstructing passage of the scope beyond the mid sigmoid colon. The procedure was aborted. No inflamed hemorrhoids were identified. The colonoscope was removed. Withdrawal time was over 6 minutes. FINDINGS: [place] preparation quality scale 5 (1-5) No external prolapsed hemorrhoids. Scope advanced to the sigmoid colon. Poor prep with solid stool to mid sigmoid colon, nondiagnostic and aborted RECOMMENDATIONS: Recommend prolonged bowel prep 3-5 days. Plan - Discharge Summary Discharge Rx Participant: Yes New Discharge Prescriptions: New Omeprazole [PriLOSEC] 40 mg PO DAILY #14 cap polyethylene glycoL 3350 [Miralax] 17 gm PO DAILY #527 gm Continue Albuterol Nebulized [Ventolin Nebulized] 2.5 mg INHALATION RT-QID PRN PRN Reason: Shortness Of Breath Famotidine 40 mg PO BID@1200,2000 HYDROmorphone [Dilaudid] 2 mg PO TID Docusate [Colace] 100 mg PO HS Morphine Sulfate ER [Ms Contin] 60 mg PO BID Losartan [Cozaar] 100 mg PO HS amLODIPine [Norvasc] 10 mg PO DAILY DULoxetine HCL [Cymbalta] 60 mg PO DAILY Albuterol Inhaler [Ventolin Hfa Inhaler] 1 puff INHALATION RT-TID PRN PRN Reason: Shortness Of Breath Multivitamins, Thera [Multivitamin (formulary)] 1 tab PO DAILY Budesonide/Formoterol Fumarate [Symbicort 160-4.5 Mcg Inhaler] 1 puff INHALATION DAILY PRN PRN Reason: Shortness Of Breath Tolterodine ER [Detrol LA] 4 mg PO HS Alendronate Sodium [Fosamax] 70 mg PO [place] ALPRAZolam [Xanax] 0.25 mg PO QID Vitamin D 1 dose PO QAM Discharge Medication List Albuterol Nebulized [Ventolin Nebulized] 2.5 mg INHALATION RT-QID PRN 10/06/16 [History] Famotidine 40 mg PO BID@1200,2000 09/30/20 [History] HYDROmorphone [Dilaudid] 2 mg PO TID 09/30/20 [History] Albuterol Inhaler [Ventolin Hfa Inhaler] 1 puff INHALATION RT-TID PRN 08/06/21 [History] Budesonide/Formoterol Fumarate [Symbicort 160-4.5 Mcg Inhaler] 1 puff INHALATION DAILY PRN 08/06/21 [History] Docusate [Colace] 100 mg PO HS 08/06/21 [History] Morphine Sulfate ER [Ms Contin] 60 mg PO BID 08/06/21 [History] Multivitamins, Thera [Multivitamin (formulary)] 1 tab PO DAILY 08/06/21 [History] ALPRAZolam [Xanax] 0.25 mg PO QID 03/09/23 [History] Alendronate Sodium [Fosamax] 70 mg PO [place] 03/09/23 [History] Losartan [Cozaar] 100 mg PO HS 03/09/23 [History] Tolterodine ER [Detrol LA] 4 mg PO HS 03/09/23 [History] DULoxetine HCL [Cymbalta] 60 mg PO DAILY 07/17/24 [History] amLODIPine [Norvasc] 10 mg PO DAILY 07/17/24 [History] Vitamin D 1 dose PO QAM 03/17/25 [History] Omeprazole [PriLOSEC] 40 mg PO DAILY #14 cap 03/18/25 [Rx] polyethylene glycoL 3350 [Miralax] 17 gm PO DAILY #527 gm 03/18/25 [Rx] Follow up Appointment(s)/Referral(s): Le Rain MD [STAFF PHYSICIAN] - 03/31/25 4:00 pm Patient Instructions/Handouts: Peptic Ulcer (DC), Constipation (DC) Activity/Diet/Wound Care/Special Instructions: Needs prolonged prep for 3 to 5 days Discharge Disposition: HOME SELF-CARE
[2025-03-18 11:56] VITALS: BP 126/73; PULSE 80; RESP 18
== END 2025-03-18 12:19 | disposition home or self-care (01) ==
LOC: ORWHC2ENDO 09:18
PROVIDERS: ATTEND Surgery Plastic and Reconstructive Surgery
DX: K29.70 Gastritis, unspecified, without bleeding (principal); K25.4 Chronic or unspecified gastric ulcer with hemorrhage; K25.3 Acute gastric ulcer without hemorrhage or perforation; K21.00 Gastro-esophageal reflux disease with esophagitis, without bleeding; K44.9 Diaphragmatic hernia without obstruction or gangrene; J44.89 Other specified chronic obstructive pulmonary disease; I10 Essential (primary) hypertension; F41.9 Anxiety disorder, unspecified; F17.200 Nicotine dependence, unspecified, uncomplicated; M19.90 Unspecified osteoarthritis, unspecified site; M79.7 Fibromyalgia; Z87.442 Personal history of urinary calculi; Z98.890 Other specified postprocedural states; Z90.49 Acquired absence of other specified parts of digestive tract; Z90.710 Acquired absence of both cervix and uterus; Z82.49 Family history of ischemic heart disease and other diseases of the circulatory system; Z88.0 Allergy status to penicillin; Z88.1 Allergy status to other antibiotic agents; Z88.6 Allergy status to analgesic agent; Z79.51 Long term (current) use of inhaled steroids; Z79.899 Other long term (current) drug therapy
CPT/HCPCS: 43248; 45330; J2704